=== PATIENT | female | born 1980 | race Caucasian/White ===

== ENCOUNTER 2024-12-02 18:01 | Emergency (ER) | payer SELFPAY ==
[2024-12-02 18:34] VITALS: BP 126/90; PULSE 102; RESP 20; TEMP 36.6; O2SAT 97; BMI 24.1
--- OUTSIDE RECORDS SUMMARY | 2024-12-02 20:11 | XMS_ITS | Encounter Summary ---
Author Organization [place] Address [address] [place] [address] Care Team Providers Care Radiotelegraph Operator Servicer Name Role Phone Pauline Augustine APRN PYROMETER OPERATOR Primary Care Provider + Pauline Augustine APRN PYROMETER OPERATOR Unavailable +[phone] Kendrick Landry MD Unavailable +[phone] Kendrick Landry MD Unavailable +[phone] Nydia Murphy CHW Unavailable +[phone] Encounter Details Date Type Department Care Team (Late st Contact Info) Description 01/31/2022 [facility] [place] Adv[place] [address] [address] Sarahy Nieves Social History Tobacco Use Types Packs/Day Years Used Date Smoking Tobacco: Never Smokeless Tobacco: Never Alcohol Use Standard Drinks/Week Comments No 0 (1 standard drink = 0.6 oz pur e alcohol) PHQ-2 Answer Date Recorded PHQ-2 Score 2 09/30/2021 Comments No Sex and Gender Information Value Date Recorded Sex Assigned at Not on file Legal Sex Female 4:25 AM BELL NECK HAMMERER Gender Identity Not on file Sexual Orientation Straight 09/24/2021 4: 08 PM BELL NECK HAMMERER 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 Not on file Not on file Not on file Not on file documented as of this encounter Plan of Treatment Not on file documented as of this encounter Visit Diagnoses Not on filedocumented in this encounter Additional Health Concerns Infection Onset Date Last Indicated Resolved Time Rule Out COVID-19 06/19/2023 06/19/2023 06/19/2023 10:19 PM CDT Rule Out COVID-19 09/29/2023 09/29/2023 09/29/2023 3:47 PM BELL NECK HAMMERER Assessment Noted Time PHQ-9 Depression Total Score: 7 09/30/19 22 2:53 PM BELL NECK HAMMERER documented as of this encounter Care Teams Radiotelegraph Operator Servicer Relationship Specialty Start Date End Date Pauline Augustine APRN PYROMETER OPERATOR [address] [place] [address] PCP - General Nurse Practitioner - Family 01/25/19 Pauline Augustine APRN PYROMETER OPERATOR [address] [facility] [place] [address] Assigned PCP 07/14/21 Kendrick Landry MD [address] [place] [address] [id number] Critical Care 06/27/22 Kendrick Landry MD [address] [place] [address] [id number] Critical Care 06/27/22 Nydia Murphy, [facility] Community Health Worker Primary Care - CC 10/04/2410/06/24 documented as of this encounter
--- OUTSIDE RECORDS SUMMARY | 2024-12-02 20:11 | XMS_ITS | Encounter Summary ---
Author Organization [place] Address [address] [place] [address] Care Team Providers Care Studio Technician Name Role Phone Nik Dumont MD Primary Care Provider + [phone] Rajani Rodriguez VIDEO OPERATOR SALT WASHER HARVESTING STATION Unavailable Mamadou Jiang PA-C Unavailable + Shawn-Rajani Quintanilla APRN SALT WASHER HARVESTING STATION Unavailable Mamadou Jiang PA-C Unavailable + Pauline Augustine VIDEO OPERATOR SALT WASHER HARVESTING STATION Unavailable + Pauline Augustine VIDEO OPERATOR SALT WASHER HARVESTING STATION Primary Care Provider + Mamadou Jiang PA-C Unavailable +00 Pauline Augustine VIDEO OPERATOR SALT WASHER HARVESTING STATION Unavailable +00 Pauline Augustine VIDEO OPERATOR SALT WASHER HARVESTING STATION Unavailable + Kendrick Landry MD Unavailable +[phone] Kendrick Landry MD Unavailable +[phone] Nydia Murphy [facility] Unavailable +[phone] Encounter Details Date Type Department Care Team (Late st Contact Info) Description 03/12/2009 [facility] [place] [facility] [address] [address] Nik Dumont MD [address] [address] Social History Tobacco Use Types Packs/Day Years Used Date Smoking Tobacco: Never Alcohol Use Standard Drinks/Week Comments No 0 (1 standard drink = 0.6 oz pur e alcohol) Comments No Sex and Gender Information Value Date Recorded Sex Assigned at Not on file Legal Sex Female 4:25 AM GEOLOGICAL DRAFTER Gender Identity Not on file Sexual Orientation Straight 09/24/2021 4: 08 PM GEOLOGICAL DRAFTER documented as of this encounter Plan of Treatment Not on file documented as of this encounter Visit Diagnoses Not on filedocumented in this encounter Additional Health Concerns Infection Onset Date Last Indicated Resolved Time Rule Out COVID-06/19/2023 06/19/2023 06/19/2023 10:19 PM CDT Rule Out COVID-09/29/2023 09/29/2023 09/29/2023 3:47 PM GEOLOGICAL DRAFTER documented as of this encounter Care Teams Studio Technician Relationship Specialty Start Date End Date Nik Dumont MD [address] [address] PCP - General 07/18/02 01/24/19 Rajani Rodriguez APRN SALT WASHER HARVESTING STATION [address] [place] [address] ROB[place] CARVER [address] PCP - Assigned PCP 04/25/18 10/30/18 Mamadou Jiang PA-C [address] [place] [address] PCP - Assigned PCP 10/31/18 11/30/18 Pauline Augustine APRN SALT WASHER HARVESTING STATION [address] [place] [address] PCP - General Nurse Practitioner - Family 01/25/19 Rajani Rodriguez APRN SALT WASHER HARVESTING STATION [address] [place] [address] ROB[place] CARVER [address] Assigned PCP 04/25/18 10/30/18 Mamadou Jiang PA-C [address] [place] [address] Assigned PCP 10/31/18 01/22/19 Pauline Augustine APRN SALT WASHER HARVESTING STATION [address] [place], [place] 0194168 Assigned PCP 01/23/19 03/24/20 Mamadou Jiang PA-C [address] [place] [address] Assigned PCP 03/25/20 08/25/20 Pauline Augustine APRN SALT WASHER HARVESTING STATION [address] [address] [place], [place] [id number] Assigned PCP 08/26/20 07/13/21 Pauline Augustine APRN SALT WASHER HARVESTING STATION [address] [place], [place] 3578668 Assigned PCP 07/14/21 Kendrick Landry MD 9 [place] [address] Critical Care 06/27/22 Kendrick Landry MD [address] [place] [address] Critical Care 06/27/22 Nydia Murphy, W Community Health Worker Primary Care - CC 10/04/2410/06/24 documented as of this encounter
--- OUTSIDE RECORDS SUMMARY | 2024-12-02 20:11 | XMS_ITS | Encounter Summary ---
Author Organization [place] Address [address] [place] [address] Care Team Providers Care Pipeline Dispatch Operator Name Role Phone Nik Dumont MD Primary Care Provider + [phone] Rajani Rodriguez APRN THINNER SPRAYER Unavailable Mamadou Jiang-C Unavailable +[phone] Rajani Rodriguez APRN THINNER SPRAYER Unavailable Mamadou Jiang-C Unavailable +[phone] Pauline Augustine MASON LINER THINNER SPRAYER Unavailable + Pauline Augustine MASON LINER THINNER SPRAYER Primary Care Provider + Mamadou Jiang-C Unavailable + Pauline Augustine APRN THINNER SPRAYER Unavailable +00 Pauline Augustine APRN THINNER SPRAYER Unavailable + Kendrick Landry MD Unavailable +[phone] Kendrick Landry MD Unavailable +[phone] Nydia Murphy [facility] Unavailable +[phone] Encounter Details Date Type Department Care Team (Late st Contact Info) Description 09/07/2012 [facility] [place] [address] [address] Conner Choudhary Social History Tobacco Use Types Packs/Day Years Used Date Smoking Tobacco: Never Smokeless Tobacco: Never Alcohol Use Standard Drinks/Week Comments No 0 (1 standard drink = 0.6 oz pur e alcohol) Comments Yes Sex and Gender Information Value Date Recorded Sex Assigned at Not on file Legal Sex Female 4:25 AM SUPERVISOR CAR AND YARD Gender Identity Not on file Sexual Orientation Straight 09/24/2021 4: 08 PM SUPERVISOR CAR AND YARD Occupation Industry Job Start Date Job End [...] Out COVID-19 09/29/2023 09/29/2023 09/29/2023 3:47 PM SUPERVISOR CAR AND YARD documented as of this encounter Care Teams Pipeline Dispatch Operator Relationship Specialty Start Date End Date Nik Dumont MD [address] [address] PCP - General 07/18/02 01/24/19 Rajani Rodriguez APRN THINNER SPRAYER [address] [place] [address] ROB[place] CARVER [address] PCP - Assigned PCP 04/25/18 10/30/18 Mamadou Jiang PA-C [address] [place] [address] PCP - Assigned PCP 10/31/18 11/30/18 Pauline Augustine APRN THINNER SPRAYER [address] [place] [address] PCP - General Nurse Practitioner - Family 01/25/19 Rajani Rodriguez APRN THINNER SPRAYER [address] [place] [address] ROB[place] CARVER [address] Assigned PCP 04/25/18 10/30/18 Mamadou Jiang PA-C [address] [place] [address] Assigned PCP 10/31/18 01/22/19 Pauline Augustine APRN THINNER SPRAYER [address] [place] [address] Assigned PCP 01/23/19 03/24/20 Mamadou Jiang PA-C [address] [place] [address] Assigned PCP 03/25/20 08/25/20 Pauline Augustine APRN THINNER SPRAYER [address] [place] [address] Assigned PCP 08/26/20 07/13/21 Pauline Augustine APRN THINNER SPRAYER [address] [place] [address] Assigned PCP 07/14/21 Kendrick Landry MD 9 [place] [address] Critical Care 06/27/22 Kendrick Landry MD 9 [place] [address] Critical Care 06/27/22 Nydia Murphy, [facility] Community Health Worker Primary Care - CC 10/04/2410/06/24 documented as of this encounter
--- OUTSIDE RECORDS SUMMARY | 2024-12-02 20:11 | XMS_ITS | Encounter Summary ---
Author Organization [place] Address [address] [place] [address] Care Team Providers Care Manager Flight Operations Name Role Phone Nik Dumont MD Primary Care Provider + [phone] Rajani Rodriguez APRN MARKETING COMMUNICATIONS MANAGER Unavailable Mamadou Jiang-C Unavailable +[phone] Rajani Rodriguez APRN MARKETING COMMUNICATIONS MANAGER Unavailable Mamadou Jiang-C Unavailable +[phone] Pauline Augustine KICKBOXING INSTRUCTOR MARKETING COMMUNICATIONS MANAGER Unavailable + Pauline Augustine KICKBOXING INSTRUCTOR MARKETING COMMUNICATIONS MANAGER Primary Care Provider + Mamadou Jiang PA-C Unavailable + Pauline Augustine APRN MARKETING COMMUNICATIONS MANAGER Unavailable +00 Pauline Augustine APRN MARKETING COMMUNICATIONS MANAGER Unavailable + Kendrick Landry MD Unavailable +[phone] Kendrick Landry MD Unavailable +[phone] Nydia Murphy [facility] Unavailable +[phone] Encounter Details Date Type Department Care Team (Late st Contact Info) Description 07/[facility] [place] [facility] Advice [address] [address] Conner Choudhary Social History Tobacco Use Types Packs/Day Years Used Date Smoking Tobacco: Never Alcohol Use Standard Drinks/Week Comments No 0 (1 standard drink = 0.6 oz pur e alcohol) Comments Yes Sex and Gender Information Value Date Recorded Sex Assigned at Not on file Legal Sex Female 4:25 AM AWNING ASSEMBLER Gender Identity Not on file Sexual Orientation Straight 09/24/2021 4: 08 PM AWNING ASSEMBLER Occupation Industry Job Start Date Job End Date Not on file Not on file Not on file Not on file documented as of this encounter Plan of Treatment Not on file documented as of this encounter Visit Diagnoses Not on filedocumented in this encounter Additional Health Concerns Infection Onset Date Last Indicated Resolved Time Rule Out COVID-19 06/19/2023 06/19/2023 06/19/2023 10:19 PM CDT Rule Out COVID-19 09/29/2023 09/29/2023 09/29/2023 3:47 PM AWNING ASSEMBLER documented as of this encounter Care Teams Manager Flight Operations Relationship Specialty Start Date End Date Nik Dumont MD [address] [address] PCP - General 07/18/02 01/24/19 Rajani Rodriguez APRN MARKETING COMMUNICATIONS MANAGER [address] [place] [address] ROB[place] CARVER [address] PCP - Assigned PCP 04/25/18 10/30/18 Mamadou Jiang [place] [address] [place] [address] PCP - Assigned PCP 10/31/18 11/30/18 Pauline Augustine APRN MARKETING COMMUNICATIONS MANAGER [address] [place] [address] PCP - General Nurse Practitioner - Family 01/25/19 Rajani Rodriguez APRN MARKETING COMMUNICATIONS MANAGER [address] [place] [address] [place] [address] Assigned PCP 04/25/18 10/30/18 Mamadou Jiang PA-C [address] [place] [address] Assigned PCP 10/31/18 01/22/19 Pauline Augustine APRN MARKETING COMMUNICATIONS MANAGER [address] [place] [address] Assigned PCP 01/23/19 03/24/20 Mamadou Jiang PA-C [address] [place] [address] Assigned PCP 03/25/20 08/25/20 Pauline Augustine APRN MARKETING COMMUNICATIONS MANAGER [address] [place] [address] Assigned PCP 08/26/20 07/13/21 Pauline Augustine APRN MARKETING COMMUNICATIONS MANAGER [address] [place] [address] Assigned PCP 07/14/21 Kendrick Landry MD 9[address] [place] [address] Critical Care 06/27/22 Kendrick Landry MD [address] [place] [address] Critical Care 06/27/22 Nydia Murphy, [facility] Community Health Worker Primary Care - CC 10/04/2410/06/24 documented as of this encounter
--- OUTSIDE RECORDS SUMMARY | 2024-12-02 20:11 | XMS_ITS | Encounter Summary ---
Author Organization [place] Address [address] [place] [address] Care Team Providers Care Bad Work Gatherer Name Role Phone Nik Dumont MD Primary Care Provider + [phone] Rajani Rodriguez APRN MAINTENANCE MACHINE REPAIRER Unavailable Mamadou Jiang-C Unavailable +[phone] Shawn-Rajani Quintanilla APRN MAINTENANCE MACHINE REPAIRER Unavailable Mamadou Jiang PA-C Unavailable +[phone] Pauline Augustine APPLICATIONS SALES CONSULTANT MAINTENANCE MACHINE REPAIRER Unavailable +[phone] Pauline Augustine APPLICATIONS SALES CONSULTANT MAINTENANCE MACHINE REPAIRER Primary Care Provider + Mamadou Jiang PA-C Unavailable +[phone] Pauline Augustine APRN MAINTENANCE MACHINE REPAIRER Unavailable +00 Pauline Augustine APRN MAINTENANCE MACHINE REPAIRER Unavailable +[phone] Kendrick Landry MD Unavailable +[phone] Kendrick Landry MD Unavailable +[phone] Nydia Murphy [facility] Unavailable +[phone] Encounter Details Date Type Department Care Team (Late st Contact Info) Description 12/11/2010 [facility] [place] Advice [address] [address] Case Ibarra MD RETIRED Social History Tobacco Use Types Packs/Day Years Used Date Smoking Tobacco: Never Alcohol Use Standard Drinks/Week Comments No 0 (1 standard drink = 0.6 oz pur e alcohol) Comments Yes Sex and Gender Information Value Date Recorded Sex Assigned at Not on file Legal Sex Female 4:25 AM ENDOSCOPY TECHNICAN Gender Identity Not on file Sexual Orientation Straight 09/24/2021 4: 08 PM ENDOSCOPY TECHNICAN Occupation Industry Job Start Date Job End [...] Out COVID-19 09/29/2023 09/29/2023 09/29/2023 3:47 PM ENDOSCOPY TECHNICAN documented as of this encounter Care Teams Bad Work Gatherer Relationship Specialty Start Date End Date Nik Dumont MD [address] [address] PCP - General 07/18/02 01/24/19 Rajani Rodriguez APRN MAINTENANCE MACHINE REPAIRER [address] [place] [address] ROB[place] CARVER [address] PCP - Assigned PCP 04/25/18 10/30/18 Mamadou Jiang PA-C [address] [place] [id number] PCP - Assigned PCP 10/31/18 11/30/18 Pauline Augustine APRN MAINTENANCE MACHINE REPAIRER [address] [place] [id number] PCP - General Nurse Practitioner - Family 01/25/19 Rajani Rodriguez APRN MAINTENANCE MACHINE REPAIRER [address] [place] [address] [place] CARVER [address] Assigned PCP 04/25/18 10/30/18 Mamadou Jiang PA-C [address] [place] [address] Assigned PCP 10/31/18 01/22/19 Pauline Augustine APRN MAINTENANCE MACHINE REPAIRER [address] [place] [address] Assigned PCP 01/23/19 03/24/20 Mamadou Jiang PA-C [address] [place] [address] Assigned PCP 03/25/20 08/25/20 Pauline Augustine APRN MAINTENANCE MACHINE REPAIRER [address] [place] [address] Assigned PCP 08/26/20 07/13/21 Pauline Augustine APRN MAINTENANCE MACHINE REPAIRER [address] [place] [address] Assigned PCP 07/14/21 Kendrick Landry MD 9 [place], [place] 973985 Critical Care 06/27/22 Kendrick Landry MD [address] [place] [address] Critical Care 06/27/22 Nydia Murphy, W Community Health Worker Primary Care - CC 10/04/2410/06/24 documented as of this encounter
--- OUTSIDE RECORDS SUMMARY | 2024-12-02 20:11 | XMS_ITS | Encounter Summary ---
Author Organization [place] Address [address] [place] [address] Care Team Providers Care Tongue And Quarter Stitcher Name Role Phone Nik Dumont MD Primary Care Provider + [phone] ShawnRajani Rocha CABINET MOUNTER SHOP AND ALTERATION TAILOR Unavailable Mamadou Jiang-C Unavailable + Shawn-Rajani Quintanilla APRN SHOP AND ALTERATION TAILOR Unavailable Mamadou Jiang PA-C Unavailable + Pauline Augustine CABINET MOUNTER SHOP AND ALTERATION TAILOR Unavailable + Pauline Augustine CABINET MOUNTER SHOP AND ALTERATION TAILOR Primary Care Provider + Mamadou Jiang PA-C Unavailable + Pauline Augustine APRN SHOP AND ALTERATION TAILOR Unavailable +00 Pauline Augustine APRN SHOP AND ALTERATION TAILOR Unavailable + Kendrick Landry MD Unavailable +[phone] Kendrick Landry MD Unavailable +[phone] Nydia uMrphy [facility] Unavailable +[phone] Reason for Visit * Reason Onset Date Comments Refill Request 03/29/2013 Encounter Details Date Type Department Care Team (Late st Contact Info) Description 03/29/2013 [facility] Women's [address] [place] [address] Case Ibarra MD RETIRED Refill Request Social History Tobacco Use Types Packs/Day Years Used Date Smoking Tobacco: Never Smokeless Tobacco: Never Alcohol Use Standard Drinks/Week Comments No 0 (1 standard drink = 0.6 oz pur e alcohol) Comments Unknown Sex and Gender Information Value Date Recorded Sex Assigned at Not on file Legal Sex Female 4:25 AM AMMONIUM NITRATE NEUTRALIZER Gender Identity Not on file Sexual Orientation Straight 09/24/2021 4: 08 PM AMMONIUM NITRATE NEUTRALIZER 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 I just want to make sure I have them after the baby. Thank you Esperanza documented in this encounter Plan of Treatment Not on file documented as of this encounter Visit Diagnoses Diagnosis depression Mental disorders of mother, complicating , childbirth, or the puerperium, unspecified as to episode of care documented in this encounter Additional Health Concerns Infection Onset Date Last Indicated Resolved Time Rule Out COVID-19 06/19/2023 06/19/2023 06/19/2023 10:19 PM CDT Rule Out COVID-19 09/29/2023 09/29/2023 09/29/2023 3:47 PM AMMONIUM NITRATE NEUTRALIZER documented as of this encounter Care Teams Tongue And Quarter Stitcher Relationship Specialty Start Date End Date Nik Dumont MD [address] [place] [address] PCP - General 07/18/02 01/24/19 Rajani Rodriguez APRN SHOP AND ALTERATION TAILOR [address] [place] [address] DR HAWLEY, ROBERT [address] PCP - Assigned PCP 04/25/18 10/30/18 Mamadou Jiang PA-C [address] [place] [address] PCP - Assigned PCP 10/31/18 11/30/18 Pauline Augustine, CABINET MOUNTER SHOP AND ALTERATION TAILOR [address] [place] [address] PCP - General Nurse Practitioner - Family 01/25/19 Rajani Rodriguez APRN SHOP AND ALTERATION TAILOR [address] [place] [address] ROB[place] CARVER [address] Assigned PCP 04/25/18 10/30/18 Mamadou Jiang PA-C [address] [place] [address] Assigned PCP 10/31/18 01/22/19 Pauline Augustine APRN SHOP AND ALTERATION TAILOR [address] [place] [address] Assigned PCP 01/23/19 03/24/20 Mamadou Jiang PA-C [address] [place] [address] Assigned PCP 03/25/20 08/25/20 Pauline Augustine APRN SHOP AND ALTERATION TAILOR [address] [place] [address] Assigned PCP 08/26/20 07/13/21 Pauline Augustine APRN SHOP AND ALTERATION TAILOR [address] [place] [address] Assigned PCP 07/14/21 Kendrick Landry MD 9 [place], [place] 934[address] Critical Care 06/27/22 Kendrick Landry MD [address] [place], [place] 261885 Critical Care 06/27/22 Nydia Murphy, [facility] Community Health Worker Primary Care - CC 10/04/2410/06/24 documented as of this encounter
--- OUTSIDE RECORDS SUMMARY | 2024-12-02 20:11 | XMS_ITS | Encounter Summary ---
Author Organization [place] Address [address] [place] [address] Care Team Providers Care Web Site Designer Name Role Phone Nik Dumont MD Primary Care Provider + [phone] ShawnRajani Rocha MARKETING SYSTEMS ANALYST MANUFACTURING PRODUCTION TECHNICIAN Unavailable Mamadou Jiang-C Unavailable + Shawn-Rajani Quintanilla APRN MANUFACTURING PRODUCTION TECHNICIAN Unavailable Mamadou Jiang PA-C Unavailable + Pauline Augustine MARKETING SYSTEMS ANALYST MANUFACTURING PRODUCTION TECHNICIAN Unavailable + Pauline Augustine MARKETING SYSTEMS ANALYST MANUFACTURING PRODUCTION TECHNICIAN Primary Care Provider + Mamadou Jiang PA-C Unavailable +00 Pauline Augustine MARKETING SYSTEMS ANALYST MANUFACTURING PRODUCTION TECHNICIAN Unavailable +00 Pauline Augustine MARKETING SYSTEMS ANALYST MANUFACTURING PRODUCTION TECHNICIAN Unavailable +00 Kendrick Landry MD Unavailable +[phone] Kendrick Landry MD Unavailable +[phone] Nydia Murphy [facility] Unavailable +[phone] Reason for Visit * Reason Onset Date Comments Refill Request 2012 araceli Encounter Details Date Type Department Care Team (Late st Contact Info) Description 2012 [facility] Women's [address] [place] [id number] Sunday Justin MD NO INFO AVAILABLE 09/18/2022 Refill Request (zofran) Social History Tobacco Use Types Packs/Day Years Used Date Smoking Tobacco: Never Smokeless Tobacco: Never Alcohol Use Standard Drinks/Week Comments No 0 (1 standard drink = 0.6 oz pur e alcohol) Comments Yes Sex and Gender Information Value Date Recorded Sex Assigned at Not on file Legal Sex Female 4:25 AM AMBULANCE DISPATCHER Gender Identity Not on file Sexual Orientation Straight 09/24/2021 4: 08 PM AMBULANCE DISPATCHER 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 LANCE DISPATCHER documented in this encounter Plan of Treatment Not on file documented as of this encounter Visit Diagnoses Diagnosis Nausea/vomiting in - Primary Unspecified vomiting of , unspecified as to episode of care documented in this encounter Additional Health Concerns Infection Onset Date Last Indicated Resolved Time Rule Out COVID-19 06/19/2023 06/19/2023 06/19/2023 10:19 PM CDT Rule Out COVID-19 09/29/2023 09/29/2023 09/29/2023 3:47 PM AMBULANCE DISPATCHER documented as of this encounter Care Teams Web Site Designer Relationship Specialty Start Date End Date Nik Dumont MD [address] [address] PCP - General 07/18/02 01/24/19 Rajani Rodriguez APRN MANUFACTURING PRODUCTION TECHNICIAN [address] [facility] [place] [address] PCP - Assigned PCP 04/25/18 10/30/18 Mamadou Jiang PA-C [address] [place] [address] PCP - Assigned PCP 10/31/18 11/30/18 Pauline Augustine APRN MANUFACTURING PRODUCTION TECHNICIAN [address] [place] [address] PCP - General Nurse Practitioner - Family 01/25/19 ShawnRajani Rocha APRN MANUFACTURING PRODUCTION TECHNICIAN [address] [place] [address] Assigned PCP 04/25/18 10/30/18 Mamadou Jiang PA-C [address] [place] [address] Assigned PCP 10/31/18 01/22/19 Pauline Augustine APRN MANUFACTURING PRODUCTION TECHNICIAN [address] [place] [address] Assigned PCP 01/23/19 03/24/20 Mamadou Jiang PA-C [address] [place] [address] Assigned PCP 03/25/20 08/25/20 Pauline Augustine APRN MANUFACTURING PRODUCTION TECHNICIAN [address] [place] [address] Assigned PCP 08/26/20 07/13/21 Pauline Augustine APRN MANUFACTURING PRODUCTION TECHNICIAN [address] [place] [address] Assigned PCP 07/14/21 Kendrick Landry MD [address] [place], [place] [address] Critical Care 06/27/22 Kendrick Landry MD [address] [place], [place] [address] Critical Care 06/27/22 Nydia Murphy, [facility] Community Health Worker Primary Care - CC 10/04/2410/06/24 documented as of this encounter
--- OUTSIDE RECORDS SUMMARY | 2024-12-02 20:11 | XMS_ITS | Encounter Summary ---
Author Organization [place] Address [address] [place] [address] Care Team Providers Care Yard Pilot Name Role Phone Nik Dumont MD Primary Care Provider + [phone] Rajani Rodriguez APRN MECHANICAL PROJECT MANAGER Unavailable Mamadou Jiang-C Unavailable +[phone] Rajani Rodriguez APRN MECHANICAL PROJECT MANAGER Unavailable Mamadou Jiang-C Unavailable +[phone] Pauline Augustine COUNTER DISH CARRIER MECHANICAL PROJECT MANAGER Unavailable + Pauline Augustine COUNTER DISH CARRIER MECHANICAL PROJECT MANAGER Primary Care Provider + Mamadou Jiang PA-C Unavailable + Pauline Augustine APRN MECHANICAL PROJECT MANAGER Unavailable +00 Pauline Augustine APRN MECHANICAL PROJECT MANAGER Unavailable + Kendrick Landry MD Unavailable +[phone] Kendrick Landry MD Unavailable +[phone] Nydia Murphy [facility] Unavailable +[phone] Encounter Details Date Type Department Care Team (Late st Contact Info) Description 12/18/2010 [facility] Medical Advice [address] [address] Conner Choudhary Social History Tobacco Use Types Packs/Day Years Used Date Smoking Tobacco: Never Alcohol Use Standard Drinks/Week Comments No 0 (1 standard drink = 0.6 oz pur e alcohol) Comments Yes Sex and Gender Information Value Date Recorded Sex Assigned at Not on file Legal Sex Female 4:25 AM INSIDE SALES TERRITORY MANAGER Gender Identity Not on file Sexual Orientation Straight 09/24/2021 4: 08 PM INSIDE SALES TERRITORY MANAGER Occupation Industry Job Start Date Job End [...] Out COVID-19 09/29/2023 09/29/2023 09/29/2023 3:47 PM INSIDE SALES TERRITORY MANAGER documented as of this encounter Care Teams Yard Pilot Relationship Specialty Start Date End Date Nik Dumont MD [address] [address] PCP - General 07/18/02 01/24/19 Rajani Rodriguez APRN MECHANICAL PROJECT MANAGER [address] [place] [address] [place] [address] PCP - Assigned PCP 04/25/18 10/30/18 Mamadou Jiang PA-C [address] [place] [address] PCP - Assigned PCP 10/31/18 11/30/18 Pauline Augustine APRN MECHANICAL PROJECT MANAGER [address] [place] [address] PCP - General Nurse Practitioner - Family 01/25/19 Rajani Rodriguez APRN MECHANICAL PROJECT MANAGER [address] [place] [address] [place] [address] Assigned PCP 04/25/18 10/30/18 Mamadou Jiang PA-C [address] [place] [address] Assigned PCP 10/31/18 01/22/19 Pauline Augustine APRN MECHANICAL PROJECT MANAGER [address] [place] [address] Assigned PCP 01/23/19 03/24/20 Mamadou Jiang PA-C [address] [place] [address] Assigned PCP 03/25/20 08/25/20 Pauline Augustine APRN MECHANICAL PROJECT MANAGER [address] [place] [address] Assigned PCP 08/26/20 07/13/21 Pauline Augustine APRN MECHANICAL PROJECT MANAGER [address] [place] [address] Assigned PCP 07/14/21 Kendrick Landry MD [address] [place] [address] Critical Care 06/27/22 Kendrick Landry MD [address] [place] [address] Critical Care 06/27/22 Nydia Murphy, [facility] Community Health Worker Primary Care - CC 10/04/2410/06/24 documented as of this encounter
--- OUTSIDE RECORDS SUMMARY | 2024-12-02 20:11 | XMS_ITS | Clinical Summary ---
Author Organization [facility] Address [address] [place] [address] Care Team Providers Care Steam Presser Name Role Phone Nik Dumont MD Primary Care Provider [phone] Allergies Active Allergy Reactions Criticality Noted Date Comments Amoxicillin-Pot Clavulanate Hives 06/21/20 13 Codeine Anxiety 06/21/2013 Iodinated Contrast Media Throat Swelling/Closing 06/21/2013 Iodine Throat Swelling/Closing 06/21/2013 Medications drospirenone-ethi nyl estradiol (DANIELLE 28) 3-0.03 mg tabletIndications : contraception Take 1 tablet by mouth once daily. Indications: CONTRACEPTION Active LORazepam (ATIVAN) 0.5 mg TabIndications:an xiety Take 0.5 mg by mouth every 6 hours if needed. Indications: ANXIETY Active escitalopram (LEXAPRO) 20 mg tabletIndications :generalized anxiety disorder,major depressive disorder Take 20 mg by mouth once daily. Indications: GENERALIZED ANXIETY DISORDER, MAJOR DEPRESSIVE DISORDER Active acetaminophen (TYLENOL) 650 mg tablet Take 1 tablet by mouth every 4 hours if needed for Pain (For mild pain.). Max acetaminophen dose: 4000mg in 24 hrs. 0 06/27/20 13 Active ibuprofen (ADVIL; MOTRIN) 600 mg tablet Take 1 tablet by mouth every 6 hours if needed for Pain or Headache. Maximum of 3200 mg in 24 hours. 30 tablet 06/27/20 13 Active Active Problems Problem Noted Date Diagnosed Date Depression 06/22/2013 SIRS due to infection 06/21/2013 Fever 06/21/2013 Nausea & vomiting 06/21/2013 Generalized muscle ache 06/21/2013 Dehydration 06/21/2013 Meningitis 06/21/2013 Headache(784.0) 06/21/2013 Family History Medical History Relation Name Comments Diabetes Maternal Aunt Hypertension Maternal Aunt Heart Disease Maternal Grandfather Hypertension Maternal Grandfather Heart Disease Maternal Grandmother Hypertension Maternal Grandmother Diabetes Maternal Uncle Hypertension Maternal Uncle Relation Name Status Comments Maternal Aunt Maternal Grandfather Maternal Grandmother Maternal Uncle Social History Tobacco Use Types Packs/Day Years Used Date Smoking Tobacco: Never Alcohol Use Standard Drinks/Week Comments No 0 (1 standard drink = 0.6 oz pur e alcohol) Comments No Sex and Gender Information Value Date Recorded Sex Assigned at Not on file Legal Sex Female 1:57 PM CDT Gender Identity Not on file Sexual Orientation Not on file Obstetrics History Last Filed Vital Signs Vital Sign Reading Time Taken Comments Blood Pressure 129/83 06/27/2013 8:00 AM CDT Pulse 52 06/27/2013 8:00 AM CDT Temperature 36.4 C (97.5 F) 06/27/2013 8:00 AM CDT Respiratory Rate 16 06/27/2013 8:00 AM CDT Oxygen Saturation 100% 06/27/2013 8:00 AM CDT Inhaled Oxygen Concentration - - Weight 61.5 kg (135 lb 8 oz) 06/24/2013 3:00 PM CDT Height 160 cm (5' 3) 06/21/2013 11:57 AM CDT Body Mass Index 24 06/21/2013 11:57 AM CDT Plan of Treatment Health Maintenance Due Date Last Done Comments Tdap 1992 Depression screening for age 12+ 1993 HIV for age 15-65 1996 BMI (ht and wt on same day) for age 18+ 1999 Hepatitis C screening for ag e 18-79 1999 Tetanus booster 2001 Pap test for age 21-65 2002 COVID-19 vaccine series (2023- season) 2024 Influenza for age 9-49 05/29/2024 Pneumococcal series for age 6-49 Aged Out No longer eligible based on patient's age to complete this topic Insurance MEDICA CHOICE Advance Directives * Full Code (Latest Code Status on File) Date Activated Date Inactivated Comments 06/21/2013 7:43 PM 06/27/2013 2:29 PM Care Teams Steam Presser Relationship Specialty Start Date End Date Nik Dumont MD PCP - General 06/21/13
--- OUTSIDE RECORDS SUMMARY | 2024-12-02 20:11 | XMS_ITS | Encounter Summary ---
Author Organization [employer] Address [address] [place] [address] Care Team Providers Care Linen Tech Name Role Phone Nik Dumont MD Primary Care Provider + [phone] Rajani Rodriguez APRN DAIRY SUPPLIES SALES REPRESENTATIVE Unavailable Mamadou Jiang-C Unavailable + Rajani Rodriguez APRN DAIRY SUPPLIES SALES REPRESENTATIVE Unavailable Mamadou Jiang PA-C Unavailable + Pauline Augustine TEACHER OF THE HANDICAPPED DAIRY SUPPLIES SALES REPRESENTATIVE Unavailable + Pauline Augustine TEACHER OF THE HANDICAPPED DAIRY SUPPLIES SALES REPRESENTATIVE Primary Care Provider + Mamadou Jiang PA-C Unavailable + Pauline Augustine APRN DAIRY SUPPLIES SALES REPRESENTATIVE Unavailable +00 Pauline Augustine APRN DAIRY SUPPLIES SALES REPRESENTATIVE Unavailable +00 Kendrick Landry MD Unavailable +[phone] Kendrick Landry MD Unavailable +[phone] Nydia Murphy [facility] Unavailable +[phone] Reason for Visit * Reason Onset Date Comments Care 12/02/2010 contractions Encounter Details Date Type Department Care Team (Late st Contact Info) Description 12/02/2010 [facility] Medical Advice [facility] Women's [address] [place] [address] Case Ibarra MD RETIRED Care (contractions) Social History Tobacco Use Types Packs/Day Years Used Date Smoking Tobacco: Never Alcohol Use Standard Drinks/Week Comments No 0 (1 standard drink = 0.6 oz pur e alcohol) Comments Yes Sex and Gender Information Value Date Recorded Sex Assigned at Not on file Legal Sex Female 4:25 AM CORE CUTTER Gender Identity Not on file Sexual Orientation Straight 09/24/2021 4: 08 PM CORE CUTTER Occupation Industry Job Start Date Job End Date Not on file Not on file Not on file Not on file documented as of this encounter Miscellaneous Notes * Telephone Encounter - Ashley Frazier - 12/02/2010 2:[address] Ibarra, please review my chart message and advise. [email or web address] Thanks. Ashley Frazier RN CUTTER documented in this encounter Plan of Treatment Not on file documented as of this encounter Visit Diagnoses Not on filedocumented in this encounter Additional Health Concerns Infection Onset Date Last Indicated Resolved Time Rule Out COVID-19 06/19/2023 06/19/2023 06/19/2023 10:19 PM CDT Rule Out COVID-19 09/29/2023 09/29/2023 09/29/2023 3:47 PM CORE CUTTER documented as of this encounter Care Teams Linen Tech Relationship Specialty Start Date End Date Nik Dumont MD [address] [address] PCP - General 07/18/02 01/24/19 Rajani Rodriguez APRN DAIRY SUPPLIES SALES REPRESENTATIVE [address] [facility] [place] [address] PCP - Assigned PCP 04/25/18 10/30/18 Mamadou Jiang PA-C [address] [place] [address] PCP - Assigned PCP 10/31/18 11/30/18 Pauline Augustine APRN DAIRY SUPPLIES SALES REPRESENTATIVE [address] [place] [address] PCP - General Nurse Practitioner - Family 01/25/19 Rajani Rodriguez APRN DAIRY SUPPLIES SALES REPRESENTATIVE [address] [facility] [place] [address] Assigned PCP 04/25/18 10/30/18 Mamadou Jiang PA-C [address] [place] [address] Assigned PCP 10/31/18 01/22/19 Pauline Augustine APRN DAIRY SUPPLIES SALES REPRESENTATIVE [address] [place] [address] Assigned PCP 01/23/19 03/24/20 Mamadou Jiang PA-C [address] [place] [address] Assigned PCP 03/25/20 08/25/20 Pauline Augustine APRN DAIRY SUPPLIES SALES REPRESENTATIVE [address] [place] [address] Assigned PCP 08/26/20 07/13/21 Pauline Augustine APRN DAIRY SUPPLIES SALES REPRESENTATIVE [address] [place] [address] Assigned PCP 07/14/21 Kendrick Landry MD [address] [place] [address] Critical Care 06/27/22 Kendrick Landry MD [facility] [place] [address] Critical Care 06/27/22 Nydia Murphy, W Community Health Worker Primary Care - CC 10/04/2410/06/24 documented as of this encounter
--- OUTSIDE RECORDS SUMMARY | 2024-12-02 20:11 | XMS_ITS | Encounter Summary ---
Author Organization [place] Address [address] [place] [address] Care Team Providers Care Industrial Gas Service Helper Name Role Phone Nik Dumont MD Primary Care Provider + [phone] ShawnRajani Rocha APRN PROGRAM DIRECTOR/TRAFFIC DIRECTOR Unavailable Mamadou Jiang PA-C Unavailable +[phone] Shawn-Rajani Quintanilla APRN PROGRAM DIRECTOR/TRAFFIC DIRECTOR Unavailable Mamadou Jiang PA-C Unavailable +[phone] Pauline Augustine ASSISTANT TODDLER TEACHER PROGRAM DIRECTOR/TRAFFIC DIRECTOR Unavailable + [phone] Pauline Augustine ASSISTANT TODDLER TEACHER PROGRAM DIRECTOR/TRAFFIC DIRECTOR Primary Care Provider + Mamadou Jiang PA-C Unavailable + Pauline Augustine ASSISTANT TODDLER TEACHER PROGRAM DIRECTOR/TRAFFIC DIRECTOR Unavailable +00 Pauline Augustine ASSISTANT TODDLER TEACHER PROGRAM DIRECTOR/TRAFFIC DIRECTOR Unavailable +00 Kendrick Landry MD Unavailable +[phone] Kendrick Landry MD Unavailable +[phone] Nydia Murphy [facility] Unavailable +[phone] Reason for Visit * Reason Onset Date Comments Fatigue 03/01/2009 Encounter Details Date Type Department Care Team (Late st Contact Info) Description 03/01/2009 My[facility] Medical Advice [address] [address] Case Ibarra MD RETIRED Fatigue Social History Tobacco Use Types Packs/Day Years Used Date Smoking Tobacco: Never Alcohol Use Standard Drinks/Week Comments No 0 (1 standard drink = 0.6 oz pur e alcohol) Comments No Sex and Gender Information Value Date Recorded Sex Assigned at Not on file Legal Sex Female 4:25 AM CARRY IN WORKER Gender Identity Not on file Sexual Orientation Straight 09/24/2021 4: 08 PM CARRY IN WORKER documented as of this encounter Plan of Treatment Not on file documented as of this encounter Visit Diagnoses Not on filedocumented in this encounter Additional Health Concerns Infection Onset Date Last Indicated Resolved Time Rule Out COVID-19 06/19/2023 06/19/2023 06/19/2023 10:19 PM CDT Rule Out COVID-19 09/29/2023 09/29/2023 09/29/2023 3:47 PM CARRY IN WORKER documented as of this encounter Care Teams Industrial Gas Service Helper Relationship Specialty Start Date End Date iNk Dumont MD [address] [address] PCP - General 07/18/02 01/24/19 Rajani Rodriguez APRN PROGRAM DIRECTOR/TRAFFIC DIRECTOR [address] [place] [address] [place] [address] PCP - Assigned PCP 04/25/18 10/30/18 Mamadou Jiang PA-C [address] [place] [address] PCP - Assigned PCP 10/31/18 11/30/18 Pauline Augustine APRN PROGRAM DIRECTOR/TRAFFIC DIRECTOR [address] [place] [address] PCP - General Nurse Practitioner - Family 01/25/19 Rajani Rodriguez APRN PROGRAM DIRECTOR/TRAFFIC DIRECTOR [address] [place] [address] [place] [address] Assigned PCP 04/25/18 10/30/18 Mamadou Jiang PA-C [address] [place] [address] Assigned PCP 10/31/18 01/22/19 Pauline Augustine APRN PROGRAM DIRECTOR/TRAFFIC DIRECTOR [address] [place] [address] Assigned PCP 01/23/19 03/24/20 Mamadou Jiang PA-C [address] [place] [address] Assigned PCP 03/25/20 08/25/20 Pauline Augustine APRN PROGRAM DIRECTOR/TRAFFIC DIRECTOR [address] [place] [address] Assigned PCP 08/26/20 07/13/21 Pauline Augustine APRN PROGRAM DIRECTOR/TRAFFIC DIRECTOR [address] [place] [address] Assigned PCP 07/14/21 Kendrick Landry MD [address] [place] [address] Critical Care 06/27/22 Kendrick Landry MD [address] [place] [address] Critical Care 06/27/22 Nydia Murphy, [facility] Community Health Worker Primary Care - CC 10/04/2410/06/24 documented as of this encounter
--- OUTSIDE RECORDS SUMMARY | 2024-12-02 20:11 | XMS_ITS | Encounter Summary ---
Author Organization [place] Address [address] [place] [address] Care Team Providers Care Cryptologic Support Specialist Name Role Phone Nik Dumont MD Primary Care Provider + [phone] ShawnRajani Rocha DIRECTOR CLINICAL RESEARCH PRACTICAL NURSING TEACHER Unavailable Mamadou Jiang PA-C Unavailable +[phone] Shawn-DwightRajani sharif APRN PRACTICAL NURSING TEACHER Unavailable Mamadou Jiang PA-C Unavailable +[phone] Pauline Augustine DIRECTOR CLINICAL RESEARCH PRACTICAL NURSING TEACHER Unavailable + [phone] Pauline Augustine DIRECTOR CLINICAL RESEARCH PRACTICAL NURSING TEACHER Primary Care Provider + Mamadou Jiang PA-C Unavailable + Pauline Augustine DIRECTOR CLINICAL RESEARCH PRACTICAL NURSING TEACHER Unavailable +00 Pauline Augustine DIRECTOR CLINICAL RESEARCH PRACTICAL NURSING TEACHER Unavailable +00 Kendrick Landry MD Unavailable +[phone] Kendrick Landry MD Unavailable +[phone] Nydia Murphy [facility] Unavailable +[phone] Reason for Visit * Reason Onset Date Comments MyChart Communication 09/19/2010 Encounter Details Date Type Department Care Team (Latest Contact Info) Description 09/19/2010 My[facility] Medical Advice [address] [address] Case Ibarra MD RETIRED MyChart Communication Social History Tobacco Use Types Packs/Day Years Used Date Smoking Tobacco: Never Alcohol Use Standard Drinks/Week Comments No 0 (1 standard drink = 0.6 oz pur e alcohol) Comments Yes Sex and Gender Information Value Date Recorded Sex Assigned at Not on file Legal Sex Female 4:25 AM PASSENGER CAR CONDUCTOR Gender Identity Not on file Sexual Orientation Straight 09/24/2021 4: 08 PM PASSENGER CAR CONDUCTOR Occupation Industry Job Start Date Job End Date Not on file Not on file Not on file Not on file documented as of this encounter Miscellaneous Notes * Telephone Encounter - Marita Herrera - 09/20/2010 9:11 AM CST [employer] message ENGER CAR CONDUCTOR documented in this encounter Plan of Treatment Not on file documented as of this encounter Visit Diagnoses Not on filedocumented in this encounter Additional Health Concerns Infection Onset Date Last Indicated Resolved Time Rule Out COVID-19 06/19/2023 06/19/2023 06/19/2023 10:19 PM CDT Rule Out COVID-19 09/29/2023 09/29/2023 09/29/2023 3:47 PM PASSENGER CAR CONDUCTOR documented as of this encounter Care Teams Cryptologic Support Specialist Relationship Specialty Start Date End Date Nik Dumont MD [address] [place] [address] PCP - General 07/18/02 01/24/19 Rajani Rodriguez APRN PRACTICAL NURSING TEACHER [facility] [place] [address] PCP - Assigned PCP 04/25/18 10/30/18 Mamadou Jiang PA-C [address] [place] [id number] PCP - Assigned PCP 10/31/18 11/30/18 Pauline Augustine APRN PRACTICAL NURSING TEACHER [address] [place] [id number] PCP - General Nurse Practitioner - Family 01/25/19 Rajani Rodriguez APRN PRACTICAL NURSING TEACHER [address] [facility] [address] [place], [place] [address] Assigned PCP 04/25/18 10/30/18 Mamadou Jiang PA-C [address] [place] [address] Assigned PCP 10/31/18 01/22/19 Pauline Augustine APRN PRACTICAL NURSING TEACHER [address] [place] [address] Assigned PCP 01/23/19 03/24/20 Mamadou Jiang PA-C [address] [place] [address] Assigned PCP 03/25/20 08/25/20 Pauline Augustine APRN PRACTICAL NURSING TEACHER [address] [place] [address] Assigned PCP 08/26/20 07/13/21 Pauline Augustine APRN PRACTICAL NURSING TEACHER [address] [place] [address] Assigned PCP 07/14/21 Kendrick Landry MD [address] [place], [place] [address] Critical Care 06/27/22 Kendrick Landry MD [address] [place], [place] [address]565 Critical Care 06/27/22 Nydia Murphy, W Community Health Worker Primary Care - CC 10/04/2410/06/24 documented as of this encounter
--- OUTSIDE RECORDS SUMMARY | 2024-12-02 20:11 | XMS_ITS | Encounter Summary ---
Author Organization [facility] Address [address] [place] [address] Care Team Providers Care Corncob Pipe Supervisor Name Role Phone Nik Dumont MD Primary Care Provider + [phone] ShawnRajani Rocha APRN HIGH LIFT DRIVER Unavailable Mamadou Jiang PA-C Unavailable + Shawn-Rajani Quintanilla APRN HIGH LIFT DRIVER Unavailable Mamadou Jiang PA-C Unavailable + Pauline Augustine LOG HAUL CHAIN FEEDER HIGH LIFT DRIVER Unavailable + Pauline Augustine LOG HAUL CHAIN FEEDER HIGH LIFT DRIVER Primary Care Provider + Mamadou Jiang PA-C Unavailable + Pauline Augustine APRN HIGH LIFT DRIVER Unavailable +00 Pauline Augustine APRN HIGH LIFT DRIVER Unavailable +00 Kendrick Landry MD Unavailable +[phone] Kendrick Landry MD Unavailable +[phone] Nydia Murphy [facility] Unavailable +[phone] Encounter Details Date Type Department Care Team (Late st Contact Info) Description 03/28/2013 [facility] [address] [place] [address] Case Ibarra MD RETIRED Social History Tobacco Use Types Packs/Day Years Used Date Smoking Tobacco: Never Smokeless Tobacco: Never Alcohol Use Standard Drinks/Week Comments No 0 (1 standard drink = 0.6 oz pur e alcohol) Comments Unknown Sex and Gender Information Value Date Recorded Sex Assigned at Not on file Legal Sex Female 4:25 AM TEST BORE HELPER Gender Identity Not on file Sexual Orientation Straight 09/24/2021 4: 08 PM TEST BORE HELPER 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 Jennifer Pugh RN documented in this encounter Plan of Treatment Not on file documented as of this encounter Visit Diagnoses Not on filedocumented in this encounter Additional Health Concerns Infection Onset Date Last Indicated Resolved Time Rule Out COVID-19 06/19/2023 06/19/2023 06/19/2023 10:19 PM CDT Rule Out COVID-19 09/29/2023 09/29/2023 09/29/2023 3:47 PM TEST BORE HELPER documented as of this encounter Care Teams Corncob Pipe Supervisor Relationship Specialty Start Date End Date Nik Dumont MD [address] [address] PCP - General 07/18/02 01/24/19 Rajani Rodriguez APRN HIGH LIFT DRIVER [address] [place] [address] ROBERT CARVER [address] PCP - Assigned PCP 04/25/18 10/30/18 Mamadou Jiang PA-C 85877 [place] [id number] PCP - Assigned PCP 10/31/18 11/30/18 Pauline Augustine APRN HIGH LIFT DRIVER [address] [place] [id number] PCP - General Nurse Practitioner - Family 01/25/19 Rajani Rodriguez APRN HIGH LIFT DRIVER [facility] [address] Assigned PCP 04/25/18 10/30/18 Mamadou Jiang PA-C [address] [place] [address] Assigned PCP 10/31/18 01/22/19 Pauline Augustine APRN HIGH LIFT DRIVER [address] [place] [address] Assigned PCP 01/23/19 03/24/20 Mamadou Jiang PA-C [address] [place] [address] Assigned PCP 03/25/20 08/25/20 Pauline Augustine APRN HIGH LIFT DRIVER [address] [place] [address] Assigned PCP 08/26/20 07/13/21 Pauline Augustine APRN HIGH LIFT DRIVER [address] [place] [address] Assigned PCP 07/14/21 Kendrick Landry MD [address] [place] [address] 875105 Critical Care 06/27/22 Kendrick Landry MD [address] [place] [address] 411305 Critical Care 06/27/22 Nydia Murphy, W Community Health Worker Primary Care - CC 10/04/2410/06/24 documented as of this encounter
--- OUTSIDE RECORDS SUMMARY | 2024-12-02 20:11 | XMS_ITS | Encounter Summary ---
Author Organization [facility] Address [address] [place] [address] Care Team Providers Care Doctor Chiropractic Name Role Phone Nik Dumont MD Primary Care Provider + [phone] ShawnRajani Rocha CONTENT MANAGEMENT SPECIALIST KARATE BLACK BELT Unavailable Mamadou Jiang PA-C Unavailable + Shawn-Rajani Quintanilla CONTENT MANAGEMENT SPECIALIST KARATE BLACK BELT Unavailable Mamadou Jiang PA-C Unavailable + Pauline Augustine CONTENT MANAGEMENT SPECIALIST KARATE BLACK BELT Unavailable + Pauline Augustine CONTENT MANAGEMENT SPECIALIST KARATE BLACK BELT Primary Care Provider + Mamadou Jiang PA-C Unavailable +00 Pauline Augustine CONTENT MANAGEMENT SPECIALIST KARATE BLACK BELT Unavailable +00 Pauline Augustine CONTENT MANAGEMENT SPECIALIST KARATE BLACK BELT Unavailable +00 Kendrick Landry MD Unavailable +[phone] Kendrick Landry MD Unavailable +[phone] Nydia Murphy [facility] Unavailable +[phone] Reason for Visit * Reason Onset Date Comments MyChart Communication 01/27/2011 Encounter Details Date Type Department Care Team (Latest Contact Info) Description 01/27/2011 [facility] [address] [place] [address] Case Ibarra MD RETIRED MyChart Communication Social History Tobacco Use Types Packs/Day Years Used Date Smoking Tobacco: Never Alcohol Use Standard Drinks/Week Comments No 0 (1 standard drink = 0.6 oz pur e alcohol) Comments Yes Sex and Gender Information Value Date Recorded Sex Assigned at Not on file Legal Sex Female 4:25 AM MEAL PACKER Gender Identity Not on file Sexual Orientation Straight 09/24/2021 4: 08 PM MEAL PACKER Occupation Industry Job Start Date Job End Date Not on file Not on file Not on file Not on file documented as of this encounter Miscellaneous Notes * Telephone Encounter - Ashley Frazier - 01/27/2011 3:13 PM CDT fyi for [facility]. Ashley Frazier RN documented in this encounter Plan of Treatment Not on file documented as of this encounter Visit Diagnoses Not on filedocumented in this encounter Additional Health Concerns Infection Onset Date Last Indicated Resolved Time Rule Out COVID-19 06/19/2023 06/19/2023 06/19/2023 10:19 PM CDT Rule Out COVID-19 09/29/2023 09/29/2023 09/29/2023 3:47 PM MEAL PACKER documented as of this encounter Care Teams Doctor Chiropractic Relationship Specialty Start Date End Date Nik Dumont MD [address] [address] PCP - General 07/18/02 01/24/19 Rajani Rodriguez APRN KARATE BLACK BELT [address] [place] [address] ROB[place] CARVER [address] PCP - Assigned PCP 04/25/18 10/30/18 Mamadou Jiang PA-C 07294 [place] [address] PCP - Assigned PCP 10/31/18 11/30/18 Pauline Augustine APRN KARATE BLACK BELT [address] [place] [address] PCP - General Nurse Practitioner - Family 01/25/19 Rajani Rodriguez APRN KARATE BLACK BELT [facility] [address] Assigned PCP 04/25/18 10/30/18 Mamadou Jiang PA-C [address] [place] [address] Assigned PCP 10/31/18 01/22/19 Pauline Augustine APRN KARATE BLACK BELT [address] [place] [address] Assigned PCP 01/23/19 03/24/20 Mamadou Jiang PA-C [address] [place] [address] Assigned PCP 03/25/20 08/25/20 Pauline Augustine APRN KARATE BLACK BELT [address] [place] [address] Assigned PCP 08/26/20 07/13/21 Pauline Augustine APRN KARATE BLACK BELT [address] [place] [address] Assigned PCP 07/14/21 Kendrick Landry MD [address] [place] [address] Critical Care 06/27/22 Kendrick Landry MD [address] [place] [address] Critical Care 06/27/22 Nydia Murphy, W Community Health Worker Primary Care - CC 10/04/2410/06/24 documented as of this encounter
--- OUTSIDE RECORDS SUMMARY | 2024-12-02 20:11 | XMS_ITS | Encounter Summary ---
Author Organization [facility] Address [address] [place] [address] Care Team Providers Care Operating Table Assembler Name Role Phone Nik Dumont MD Primary Care Provider + [phone] Rajani Rodriguez APRN TILTING HEAD BAND SAWYER Unavailable Mamadou Jiang-C Unavailable +[phone] Rajani Rodriguez APRN TILTING HEAD BAND SAWYER Unavailable Mamadou Jiang-C Unavailable +[phone] Pauline Augustine RICE FARMER TILTING HEAD BAND SAWYER Unavailable + [phone] Pauline Augustine RICE FARMER TILTING HEAD BAND SAWYER Primary Care Provider + Mamadou Jiang PA-C Unavailable + Pauline Augustine APRN TILTING HEAD BAND SAWYER Unavailable +00 Pauline Augustine APRN TILTING HEAD BAND SAWYER Unavailable + Kendrick Landry MD Unavailable +[phone] Kendrick Landry MD Unavailable +[phone] Nydia Murphy [facility] Unavailable +[phone] Encounter Details Date Type Department Care Team (Late st Contact Info) Description 05/30/2009 [facility] Medical Advice [address] [address] Conner Choudhary Social History Tobacco Use Types Packs/Day Years Used Date Smoking Tobacco: Never Alcohol Use Standard Drinks/Week Comments No 0 (1 standard drink = 0.6 oz pur e alcohol) Comments No Sex and Gender Information Value Date Recorded Sex Assigned at Not on file Legal Sex Female 4:25 AM TIPPLE MECHANIC Gender Identity Not on file Sexual Orientation Straight 09/24/2021 4: 08 PM TIPPLE MECHANIC documented as of this encounter Plan of Treatment Not on file documented as of this encounter Visit Diagnoses Not on filedocumented in this encounter Additional Health Concerns Infection Onset Date Last Indicated Resolved Time Rule Out COVID-19 06/19/2023 06/19/2023 06/19/2023 10:19 PM CDT Rule Out COVID-19 09/29/2023 09/29/2023 09/29/2023 3:47 PM TIPPLE MECHANIC documented as of this encounter Care Teams Operating Table Assembler Relationship Specialty Start Date End Date Nik Dumont MD [address] [address] PCP - General 07/18/02 01/24/19 Rajani Rodriguez APRN TILTING HEAD BAND SAWYER [address] [place] [address] ROB[place] CARVER [address] PCP - Assigned PCP 04/25/18 10/30/18 Mamadou Jiang PA-C 09256 [place] [address] PCP - Assigned PCP 10/31/18 11/30/18 Pauline Augustine APRN TILTING HEAD BAND SAWYER [address] [place] [address] PCP - General Nurse Practitioner - Family 01/25/19 Rajani Rodriguez APRN TILTING HEAD BAND SAWYER [address] [place] [address] ROBERT CARVER [address] Assigned PCP 04/25/18 10/30/18 Mamadou Jiang PA-C 24746 [place] [address] Assigned PCP 10/31/18 01/22/19 Pauline Augustine APRN TILTING HEAD BAND SAWYER [address] [place] [address] Assigned PCP 01/23/19 03/24/20 Mamadou Jiang PA-C [address] [place] [address] Assigned PCP 03/25/20 08/25/20 Pauline Augustine APRN TILTING HEAD BAND SAWYER [address] [place] [address] Assigned PCP 08/26/20 07/13/21 Pauline Augustine APRN TILTING HEAD BAND SAWYER [address] [place] [address] Assigned PCP 07/14/21 Kendrick Landry MD [address] [place] [address] Critical Care 06/27/22 Kendrick Landry MD [address] [place] [address] Critical Care 06/27/22 Nydia Murphy, [facility] Community Health Worker Primary Care - CC 10/04/2410/06/24 documented as of this encounter
--- OUTSIDE RECORDS SUMMARY | 2024-12-02 20:11 | XMS_ITS | Encounter Summary ---
Author Organization [facility] Address [address] [place] [address] Care Team Providers Care Airbrush Artist Technical Name Role Phone Nik Dumont MD Primary Care Provider + [phone] ShawnRajani Rocha APRN BILLBOARD POSTER HELPER Unavailable Mamadou Jiang PA-C Unavailable +[phone] Shawn-Rajani Quintanilla APRN BILLBOARD POSTER HELPER Unavailable Mamadou Jiang PA-C Unavailable +[phone] Pauline Augustine CARCASS WASHER BILLBOARD POSTER HELPER Unavailable + [phone] Pauline Augustine CARCASS WASHER BILLBOARD POSTER HELPER Primary Care Provider + Mamadou Jiang PA-C Unavailable + Pauline Augustine APRN BILLBOARD POSTER HELPER Unavailable +00 Pauline Augustine APRN BILLBOARD POSTER HELPER Unavailable +00 Kendrick Landry MD Unavailable +[phone] Kendrick Landry MD Unavailable +[phone] Nydia Murphy [facility] Unavailable +[phone] Reason for Visit * Reason Onset Date Comments Sinus Problem 09/09/2012 Encounter Details Date Type Department Care Team (Late st Contact Info) Description 09/09/2012 [facility] Medical Advice [address] [address] Case Ibarra MD RETIRED Sinus Problem Social History Tobacco Use Types Packs/Day Years Used Date Smoking Tobacco: Never Smokeless Tobacco: Never Alcohol Use Standard Drinks/Week Comments No 0 (1 standard drink = 0.6 oz pur e alcohol) Comments Yes Sex and Gender Information Value Date Recorded Sex Assigned at Not on file Legal Sex Female 4:25 AM QUALITY ASSURANCE CALIBRATOR Gender Identity Not on file Sexual Orientation Straight 09/24/2021 4: 08 PM QUALITY ASSURANCE CALIBRATOR 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 Recommended urgent care visit. Chaya Martell RN ITY ASSURANCE CALIBRATOR documented in this encounter Plan of Treatment Not on file documented as of this encounter Visit Diagnoses Not on filedocumented in this encounter Additional Health Concerns Infection Onset Date Last Indicated Resolved Time Rule Out COVID-19 06/19/2023 06/19/2023 06/19/2023 10:19 PM CDT Rule Out COVID-19 09/29/2023 09/29/2023 09/29/2023 3:47 PM QUALITY ASSURANCE CALIBRATOR documented as of this encounter Care Teams Airbrush Artist Technical Relationship Specialty Start Date End Date Nik Dumont MD [address] [address] PCP - General 07/18/02 01/24/19 Rajani Rodriguez APRN BILLBOARD POSTER HELPER [address] [place] [address] ROBERT CARVER [address] PCP - Assigned PCP 04/25/18 10/30/18 Mamadou Jiang PA-C 08321 [place] [address] PCP - Assigned PCP 10/31/18 11/30/18 Pauline Augustine APRN BILLBOARD POSTER HELPER [address] [place] [address] PCP - General Nurse Practitioner - Family 01/25/19 Rajani Rodriguez APRN BILLBOARD POSTER HELPER [address] [place] [address] Assigned PCP 04/25/18 10/30/18 Mamadou Jiang PA-C [address] [place] [address] Assigned PCP 10/31/18 01/22/19 Pauline Augustine APRN BILLBOARD POSTER HELPER [address] [place] [address] Assigned PCP 01/23/19 03/24/20 Mamadou Jiang PA-C [address] [place] [address] Assigned PCP 03/25/20 08/25/20 Pauline Augustine APRN BILLBOARD POSTER HELPER [address] [place] [address] Assigned PCP 08/26/20 07/13/21 Pauline Augustine APRN BILLBOARD POSTER HELPER [address] [place] [address] Assigned PCP 07/14/21 Kendrick Landry MD [address] [place], [place] 172165 Critical Care 06/27/22 Kendrick Landry MD [address] [place] [address] Critical Care 06/27/22 Nydia Murphy, W Community Health Worker Primary Care - CC 10/04/2410/06/24 documented as of this encounter
--- OUTSIDE RECORDS SUMMARY | 2024-12-02 20:11 | XMS_ITS | Encounter Summary ---
Author Organization [facility] Address [address] [place] [address] Care Team Providers Care Car Checker Name Role Phone Nik Dumont MD Primary Care Provider + [phone] Rajani Rodriguez APRN WOOL CARDER Unavailable Mamadou Jiang-C Unavailable +[phone] Rajani Rodriguez APRN WOOL CARDER Unavailable Mamadou Jiang-C Unavailable +[phone] Pauline Augustine MARKETING WRITER WOOL CARDER Unavailable + 500 Pauline Augustine MARKETING WRITER WOOL CARDER Primary Care Provider + Mamadou Jiang-C Unavailable + Pauline Augustine APRN WOOL CARDER Unavailable +00 Pauline Augustine APRN WOOL CARDER Unavailable + Kendrick Landry MD Unavailable +[phone] Kendrick Landry MD Unavailable +[phone] Nydia Murphy [facility] Unavailable +[phone] Encounter Details Date Type Department Care Team (Late st Contact Info) Description 08/16/2010 [facility] Medical Advice [address] [address] Conner Choudhary Social History Tobacco Use Types Packs/Day Years Used Date Smoking Tobacco: Never Alcohol Use Standard Drinks/Week Comments No 0 (1 standard drink = 0.6 oz pur e alcohol) Comments Yes Sex and Gender Information Value Date Recorded Sex Assigned at Not on file Legal Sex Female 4:25 AM ABSTRACT MANAGER Gender Identity Not on file Sexual Orientation Straight 09/24/2021 4: 08 PM ABSTRACT MANAGER Occupation Industry Job Start Date Job [...] Out COVID-19 09/29/2023 09/29/2023 09/29/2023 3:47 PM ABSTRACT MANAGER documented as of this encounter Care Teams Car Checker Relationship Specialty Start Date End Date Nik Dumont MD [address] [address] PCP - General 07/18/02 01/24/19 Rajani Rodriguez APRN WOOL CARDER [address] [place] [address] ROB[place] CARVER [address] PCP - Assigned PCP 04/25/18 10/30/18 Mamadou Jiang PA-C [address] [place] [address] PCP - Assigned PCP 10/31/18 11/30/18 Pauline Augustine APRN WOOL CARDER [address] [place] [address] PCP - General Nurse Practitioner - Family 01/25/19 Rajani Rodriguez APRN WOOL CARDER [address] [place] [address] ROB[place] CAR[place] [address] Assigned PCP 04/25/18 10/30/18 Mamadou Jiang PA-C [address] [place] [address] Assigned PCP 10/31/18 01/22/19 Pauline Augustine APRN WOOL CARDER [address] [place] [address] Assigned PCP 01/23/19 03/24/20 Mamadou Jiang PA-C [address] [place] [address] Assigned PCP 03/25/20 08/25/20 Pauline Augustine APRN WOOL CARDER [address] [place] [address] Assigned PCP 08/26/20 07/13/21 Pauline Augustine APRN WOOL CARDER [address] [place] [address] Assigned PCP 07/14/21 Kendrick Landry MD [address] [place] [address] Critical Care 06/27/22 Kendrick Landry MD [address] [place] [address] Critical Care 06/27/22 Nydia Murphy, [facility] Community Health Worker Primary Care - CC 10/04/2410/06/24 documented as of this encounter
--- OUTSIDE RECORDS SUMMARY | 2024-12-02 20:12 | XMS_ITS | Encounter Summary ---
Author Organization [facility] Address [address] [place] [address] Care Team Providers Care Cathead Worker Name Role Phone Pauline Augustine APRN LETTUCE TRIMMER Primary Care Provider + Pauline Augustine APRN LETTUCE TRIMMER Unavailable +[phone] Kendrick Landry MD Unavailable +[phone] Kendrick Landry MD Unavailable [phone] Nydia Murphy [facility] Unavailable +[phone] Encounter Details Date Type Department Care Team (Late st Contact Info) Description 06/27/[address] 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 No / Unsure 06/24/2022 9:26 AM CDT documented as of this encounter Plan of Treatment Not on file documented as of this encounter Visit Diagnoses Not on filedocumented in this encounter Additional Health Concerns Infection Onset Date Last Indicated Resolved Time Rule Out COVID-19 06/19/2023 06/19/2023 06/19/2023 10:19 PM CDT Rule Out COVID-19 09/29/2023 09/29/2023 09/29/2023 3:47 PM COST AND RISK ANALYSIS MANAGER Assessment Noted Time PHQ-9 Depression Total Score: 5 02/20/20 12:40 PM CDT documented as of this encounter Care Teams Cathead Worker Relationship Specialty Start Date End Date Pauline Augustine APRN LETTUCE TRIMMER [address] [address] [place] [address] PCP - General Nurse Practitioner - Family 01/25/19 Pauline Augustine APRN LETTUCE TRIMMER [address] [place] [address] Assigned PCP 07/14/21 Kendrick Landry MD [address] [place] [address] 735145 Critical Care 06/27/22 Kendrick Landry MD [address] [place] [address] Critical Care 06/27/22 Nydia uMrphy, [facility] Community Health Worker Primary Care - CC 10/04/2410/06/24 documented as of this encounter
--- OUTSIDE RECORDS SUMMARY | 2024-12-02 20:12 | XMS_ITS | Encounter Summary ---
Author Organization [facility] Address [address] [place] [address] Care Team Providers Care Clinic Office Assistant Name Role Phone Nik Dumont MD Primary Care Provider + [phone] Rajani Rodriguez CLOUD OPERATIONS ENGINEER CHICKEN HANGER Unavailable Mamadou Jiang PA-C Unavailable + Shawn-Rajani Quintanilla APRN CHICKEN HANGER Unavailable Mamadou Jiang PA-C Unavailable + Pauline Augustine CLOUD OPERATIONS ENGINEER CHICKEN HANGER Unavailable + Pauline Augustine CLOUD OPERATIONS ENGINEER CHICKEN HANGER Primary Care Provider + Mamadou Jiang PA-C Unavailable + Pauline Augustine CLOUD OPERATIONS ENGINEER CHICKEN HANGER Unavailable +00 Pauline Augustine CLOUD OPERATIONS ENGINEER CHICKEN HANGER Unavailable + Kendrick Landry MD Unavailable +[phone] Kendrick Landry MD Unavailable +[phone] Nydia Murphy [facility] Unavailable +[phone] Encounter Details Date Type Department Care Team (Late st Contact Info) Description 05/19/2017 [facility] [address] [address] Nik Dumont MD [address] [address] Social History Tobacco Use Types Packs/Day Years Used Date Smoking Tobacco: Never Smokeless Tobacco: Never Alcohol Use Standard Drinks/Week Comments No 0 (1 standard drink = 0.6 oz pur e alcohol) Comments No Sex and Gender Information Value Date Recorded Sex Assigned at Not on file Legal Sex Female 4:25 AM RECORDS OFFICER Gender Identity Not on file Sexual Orientation Straight 09/24/2021 4: 08 PM RECORDS OFFICER 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 * Telephone Encounter - Nik Dumont MD - 05/19/2017 2:46 PM CDT Needs to be seen, or needs to be an E-visit (as before) * Telephone Encounter - Татьяна Downs RN - 05/19/2017 1:38 PM CDT Pt last saw Dr. Dumont 2013, should be be seen again? Please advise. documented in this encounter Plan of Treatment Not on file documented as of this encounter Visit Diagnoses Not on filedocumented in this encounter Additional Health Concerns Infection Onset Date Last Indicated Resolved Time Rule Out COVID-19 06/19/2023 06/19/2023 06/19/2023 10:19 PM CDT Rule Out COVID-19 09/29/2023 09/29/2023 09/29/2023 3:47 PM RECORDS OFFICER Assessment Noted Time PHQ-9 Depression Total Score: 4 04/04/20 17 7:28 AM CDT documented as of this encounter Care Teams Clinic Office Assistant Relationship Specialty Start Date End Date Nik Dumont MD [address] [place] [address] PCP - General 07/18/02 01/24/19 Rajani Rodriguez APRN CHICKEN HANGER [address] [place] [address] ROB[place] CARVER [address] PCP - Assigned PCP 04/25/18 10/30/18 Mamadou Jiang PA-C [address] [place] [address] PCP - Assigned PCP 10/31/18 11/30/18 Pauline Augustine APRN CHICKEN HANGER [address] [place] [address] PCP - General Nurse Practitioner - Family 01/25/19 Rajani Rodriguez APRN CHICKEN HANGER [address] [place] [address] [place], [place] [address] Assigned PCP 04/25/18 10/30/18 Mamadou Jiang PA-C [address] [place] [address] Assigned PCP 10/31/18 01/22/19 Pauline Augustine APRN CHICKEN HANGER [address] [place] [address] Assigned PCP 01/23/19 03/24/20 Mamadou Jiang PA-C [address] [place] [address] Assigned PCP 03/25/20 08/25/20 Pauline Augustine APRN CHICKEN HANGER [address] [place] [address] Assigned PCP 08/26/20 07/13/21 Pauline Augustine APRN CHICKEN HANGER [address] [place] [address] Assigned PCP 07/14/21 Kendrick Landry MD [address] [place], [place] 447865 Critical Care 06/27/22 Kendrick Landry MD [address] [place], [place] 25929[address] Critical Care 06/27/22 Nydia Murphy, W Community Health Worker Primary Care - CC 10/04/2410/06/24 documented as of this encounter
--- OUTSIDE RECORDS SUMMARY | 2024-12-02 20:12 | XMS_ITS | Encounter Summary ---
Author Organization [facility] Address [address] [place] [address] Care Team Providers Care Housekeeping And Laundry Team Leader Name Role Phone aPuline Augustine APRN BUILDING MAINTENANCE CUSTODIAN Unavailable [phone] Pauline Augustine CONDUIT BENDER BUILDING MAINTENANCE CUSTODIAN Primary Care Provider + Mamadou Jiang PA-C Unavailable +[phone] Pauline Augustine APRN BUILDING MAINTENANCE CUSTODIAN Unavailable +[phone] Pauline Augustine APRN BUILDING MAINTENANCE CUSTODIAN Unavailable +[phone] Kendrick Landry MD Unavailable +[phone] Kendrick Landry MD Unavailable +[phone] Nydia Murphy CHW Unavailable +[phone] Encounter Details Date Type Department Care Team (Late st Contact Info) Description 03/22/2020 [facility] Medical Advice [address] [phone] Jeni Harmon MA Social History Tobacco Use Types Packs/Day Years Used Date Smoking Tobacco: Never Smokeless Tobacco: Never Alcohol Use Standard Drinks/Week Comments No 0 (1 standard drink = 0.6 oz pur e alcohol) PHQ-2 Answer Date Recorded PHQ-2 Score 1 11/24/2019 Comments No Sex and Gender Information Value Date Recorded Sex Assigned at Not on file Legal Sex Female 4:25 AM TELEVISION NEWS VIDEO EDITOR Gender Identity Not on file Sexual Orientation Straight 09/24/2021 4: 08 PM TELEVISION NEWS VIDEO EDITOR Occupation Industry Job Start Date Job End [...] Out COVID-19 09/29/2023 09/29/2023 09/29/2023 3:47 PM TELEVISION NEWS VIDEO EDITOR Assessment Noted Time PHQ-9 Depression Total Score: 3 11/24/19 20 8:57 AM TELEVISION NEWS VIDEO EDITOR documented as of this encounter Care Teams Housekeeping And Laundry Team Leader Relationship Specialty Start Date End Date Pauline Augustine APRN BUILDING MAINTENANCE CUSTODIAN [address] [place] [address] PCP - General Nurse Practitioner - Family 01/25/19 Pauline Augustine APRN BUILDING MAINTENANCE CUSTODIAN [address] [place] [address] Assigned PCP 01/23/19 03/24/20 Mamadou Jiang PA-C [address] [place] [address] Assigned PCP 03/25/20 08/25/20 Pauline Augustine APRN BUILDING MAINTENANCE CUSTODIAN [address] [place] [address] Assigned PCP 08/26/20 07/13/21 Pauline Augustine APRN BUILDING MAINTENANCE CUSTODIAN [address] [place] [address] Assigned PCP 07/14/21 Kendrick Landry MD 9 [place] [address] Critical Care 06/27/22 Kendrick Landry MD 9 [place] [address] Critical Care 06/27/22 Nydia Murphy, W Community Health Worker Primary Care - CC 10/04/2410/06/24 documented as of this encounter
--- OUTSIDE RECORDS SUMMARY | 2024-12-02 20:12 | XMS_ITS | Encounter Summary ---
Author Organization [facility] Address [address] [place] [address]. [place] [address] Care Team Providers Care Route Carrier Name Role Phone Pauline Augustine APRN INSURANCE CONSULTANT Primary Care Provider + Pauline Augustine APRN INSURANCE CONSULTANT Unavailable +[phone] Kendrick Landry MD Unavailable +[phone] Kendrick Landry MD Unavailable +[phone] Nydia Murphy CHW Unavailable +[phone] Encounter Details Date Type Department Care Team (Late st Contact Info) Description 11/25/2022 [facility] Medical Adv[facility] [address] [place] [address] Pauline Augustine APRN INSURANCE CONSULTANT [address] [place] [address] Social History Tobacco Use Types Packs/Day Years Used Date Smoking Tobacco: Never Passive Smoke Exposure: Never Smokeless Tobacco: Never Alcohol Use Standard Drinks/Week Comments No 0 (1 standard drink = 0.6 oz pur e alcohol) PHQ-2 Answer Date Recorded PHQ-2 Score 1 11/25/2022 Comments No Sex and Gender Information Value Date Recorded Sex Assigned at Not on file Legal Sex Female 4:25 AM AERIAL SPRAYER Gender Identity Not on file Sexual Orientation Straight 09/24/2021 4: 08 PM AERIAL SPRAYER 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 No / Unsure 11/24/2022 3:05 PM AERIAL SPRAYER documented as of this encounter Miscellaneous Notes * Telephone Encounter - Toshia Hoyos RN - 11/25/2022 12:19 PM AERIAL SPRAYER Sent refill request in separate encounter. Toshia Massey RN AL SPRAYER documented in this encounter Plan of Treatment Not on file documented as of this encounter Visit Diagnoses Not on filedocumented in this encounter Additional Health Concerns Infection Onset Date Last Indicated Resolved Time Rule Out COVID-19 06/19/2023 06/19/2023 06/19/2023 10:19 PM CDT Rule Out COVID-19 09/29/2023 09/29/2023 09/29/2023 3:47 PM AERIAL SPRAYER Assessment Noted Time PHQ-9 Depression Total Score: 4 08/26/20 3:41 PM AERIAL SPRAYER documented as of this encounter Care Teams Route Carrier Relationship Specialty Start Date End Date Pauline Augustine APRN INSURANCE CONSULTANT [address] [place] [address] PCP - General Nurse Practitioner - Family 01/25/19 Pauline Augustine APRN INSURANCE CONSULTANT [address] [place] [address] Assigned PCP 07/14/21 Kendrick Landry MD [address] [place] [address] [id number] Critical Care 06/27/22 Kendrick Landry MD [address] [place] [address] 092215 Critical Care 06/27/22 Nydia Murphy, [facility] Community Health Worker Primary Care - CC 10/04/2410/06/24 documented as of this encounter
--- OUTSIDE RECORDS SUMMARY | 2024-12-02 20:12 | XMS_ITS | Encounter Summary ---
Author Organization [facility] Address [address] [place] [address] Care Team Providers Care Game Programer Name Role Phone Pauline Augustine APRN BRANCH COORDINATOR Unavailable [phone] Pauline Augustine CUSTOMER ASSOCIATE BRANCH COORDINATOR Primary Care Provider + Mamadou Jiang PA-C Unavailable +[phone] Pauline Augustine APRN BRANCH COORDINATOR Unavailable + Pauline Augustine APRN BRANCH COORDINATOR Unavailable +[phone] Kendrick Landry MD Unavailable +[phone] Kendrick Landry MD Unavailable + [phone] Nydia Murphy CHW Unavailable +[phone] Encounter Details Date Type Department Care Team (Late st Contact Info) Description 12/26/2019 [facility] Medical Advice [facility], [address] [place] [phone] Mary Jo Kincaid, PUMP INSTALLATION AND SERVICER Social History Tobacco Use Types Packs/Day Years Used Date Smoking Tobacco: Never Smokeless Tobacco: Never Alcohol Use Standard Drinks/Week Comments No 0 (1 standard drink = 0.6 oz pur e alcohol) PHQ-2 Answer Date Recorded PHQ-2 Score 1 11/24/2019 Comments No Sex and Gender Information Value Date Recorded Sex Assigned at Not on file Legal Sex Female 4:25 AM TOE TRIMMER Gender Identity Not on file Sexual Orientation Straight 09/24/2021 4: 08 PM TOE TRIMMER Occupation Industry Job Start Date Job End [...] Out COVID-19 09/29/2023 09/29/2023 09/29/2023 3:47 PM TOE TRIMMER Assessment Noted Time PHQ-9 Depression Total Score: 3 11/24/19 20 8:57 AM TOE TRIMMER documented as of this encounter Care Teams Game Programer Relationship Specialty Start Date End Date Pauline Augustine APRN BRANCH COORDINATOR [address] [place] [address] PCP - General Nurse Practitioner - Family 01/25/19 Pauline Augustine APRN BRANCH COORDINATOR [address] [place] [address] Assigned PCP 01/23/19 03/24/20 Mamadou Jiang PA-C [address] [place] [address] Assigned PCP 03/25/20 08/25/20 Pauline Augustine APRN BRANCH COORDINATOR [address] [place] [address] Assigned PCP 08/26/20 07/13/21 Pauline Augustine APRN BRANCH COORDINATOR [address] [place] [address] Assigned PCP 07/14/21 Kendrick Landry MD [address] [place] [address] Critical Care 06/27/22 Kendrick Landry MD [facility] [place] [address] Critical Care 06/27/22 Nydia Murphy, W Community Health Worker Primary Care - CC 10/04/2410/06/24 documented as of this encounter
--- OUTSIDE RECORDS SUMMARY | 2024-12-02 20:12 | XMS_ITS | Encounter Summary ---
Author Organization [facility] Address [address] [place] [address] Care Team Providers Care Biazzi Nitrator Operator Name Role Phone Pauline Augustine APRN OUTDOOR ADVENTURE LEADER Primary Care Provider + Pauline Augustine APRN OUTDOOR ADVENTURE LEADER Unavailable [phone] Kendrick Landry MD Unavailable +[phone] Kendrick Landry MD Unavailable +[phone] Nydia Murphy CHW Unavailable [phone] Encounter Details Date Type Department Care Team (Late st Contact Info) Description 09/15/2022 [facility] Medical Advice [address] [address] Claire Martinez Social History Tobacco Use Types Packs/Day Years Used Date Smoking Tobacco: Never Smokeless Tobacco: Never Alcohol Use Standard Drinks/Week Comments No 0 (1 standard drink = 0.6 oz pur e alcohol) PHQ-2 Answer Date Recorded PHQ-2 Score 2 08/26/2022 Comments No Sex and Gender Information Value Date Recorded Sex Assigned at Not on file Legal Sex Female 4:25 AM HEAT SEALING MACHINE OPERATOR Gender Identity Not on file Sexual Orientation Straight 09/24/2021 4: 08 PM HEAT SEALING MACHINE OPERATOR Occupation Industry Job Start Date Job End [...] Out COVID-19 09/29/2023 09/29/2023 09/29/2023 3:47 PM HEAT SEALING MACHINE OPERATOR Assessment Noted Time PHQ-9 Depression Total Score: 4 08/26/20 3:41 PM HEAT SEALING MACHINE OPERATOR documented as of this encounter Care Teams Biazzi Nitrator Operator Relationship Specialty Start Date End Date Pauline Augustine APRN OUTDOOR ADVENTURE LEADER [address] [place] [address] PCP - General Nurse Practitioner - Family 01/25/19 Pauline Augustine APRN OUTDOOR ADVENTURE LEADER [address] [place] [address] Assigned PCP 07/14/21 Kendrick Landry MD 9 [place], [place] 813585 Critical Care 06/27/22 Kendrick Landry MD [address] [place], [place] 9214[address] Critical Care 06/27/22 Nydia Murphy, [place] Community Health Worker Primary Care - CC 10/04/2410/06/24 documented as of this encounter
--- OUTSIDE RECORDS SUMMARY | 2024-12-02 20:12 | XMS_ITS | Encounter Summary ---
Author Organization [facility] Address [address] [place] [address] Care Team Providers Care Motion Picture Cameraman Name Role Phone Pauline Augustine APRN MOBILE APPLICATION DEVELOPMENT LEAD Primary Care Provider + Pauline Augustine APRN MOBILE APPLICATION DEVELOPMENT LEAD Unavailable [phone] Kendrick Landry MD Unavailable [phone] Kendrick Landry MD Unavailable [phone] Nydia Murphy CHW Unavailable [phone] Encounter Details Date Type Department Care Team (Late st Contact Info) Description 08/07/2022 [facility] Medical Advice [facility] Respiratory [address] [place] [address] Laura Enamorado, RT Social History Tobacco Use Types Packs/Day Years Used Date Smoking Tobacco: Never Smokeless Tobacco: Never Alcohol Use Standard Drinks/Week Comments No 0 (1 standard drink = 0.6 oz pur e alcohol) PHQ-2 Answer Date Recorded PHQ-2 Score 2 06/24/2022 Comments No Sex and Gender Information Value Date Recorded Sex Assigned at Not on file Legal Sex Female 4:25 AM FAMILY LAW LEGAL ASSISTANT Gender Identity Not on file Sexual Orientation Straight 09/24/2021 4: 08 PM FAMILY LAW LEGAL ASSISTANT Occupation Industry Job Start Date Job End [...] Out COVID-19 09/29/2023 09/29/2023 09/29/2023 3:47 PM FAMILY LAW LEGAL ASSISTANT Assessment Noted Time PHQ-9 Depression Total Score: 5 02/20/20 12:40 PM CDT documented as of this encounter Care Teams Motion Picture Cameraman Relationship Specialty Start Date End Date Pauline Augustine APRN MOBILE APPLICATION DEVELOPMENT LEAD [address] [place] [address] PCP - General Nurse Practitioner - Family 01/25/19 Pauline Augustine APRN MOBILE APPLICATION DEVELOPMENT LEAD [address] [address] [address] Assigned PCP 07/14/21 Kendrick Landry MD [address] [place], [place] 2738[address] Critical Care 06/27/22 Kendrick Landry MD [address] [place], [place] 5906[address] Critical Care 06/27/22 Nydia Murphy, [facility] Community Health Worker Primary Care - CC 10/04/2410/06/24 documented as of this encounter
--- OUTSIDE RECORDS SUMMARY | 2024-12-02 20:12 | XMS_ITS | Encounter Summary ---
Author Organization [facility] Address [address] [place] [address] Care Team Providers Care Nut Threader Name Role Phone Nik Dumont MD Primary Care Provider + [phone] Rajani Rodriguez APRN TUBER MACHINE OPERATOR HELPER Unavailable Mamadou Jiang-C Unavailable +[phone] Rajani Rodriguez APRN TUBER MACHINE OPERATOR HELPER Unavailable Mamadou Jiang-C Unavailable +[phone] Pauline Augustine APRN TUBER MACHINE OPERATOR HELPER Unavailable [phone] Pauline Augustine APRN TUBER MACHINE OPERATOR HELPER Primary Care Provider + Mamadou Jiang-C Unavailable +[phone] Pauline Augustine APRN TUBER MACHINE OPERATOR HELPER Unavailable +[phone] Pauline Augustine APRN TUBER MACHINE OPERATOR HELPER Unavailable +[phone] Kendrick Landry MD Unavailable [phone] Kendrick Landry MD Unavailable +[phone] Nydia Murphy [facility] Unavailable +[phone] Reason for Visit * Reason Onset Date Comments Symptoms 07/10/2017 improving Vaginal Problem 07/10/2017 requesting Diflu can Encounter Details Date Type Department Care Team (Late st Contact Info) Description 07/10/2017 [facility] Medical Advice [facility] [address] [place] [address] Hollie Gonzalez, FORESTRY FIRE AIDE TUBER MACHINE OPERATOR HELPER [address] [facility] [place] [address] Symptoms (improving); Vaginal Problem (req... 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 Sent rx per verbal. Updated patient via [employer] message. documented in this encounter Plan of Treatment Not on file documented as of this encounter Visit Diagnoses Diagnosis Yeast infection of the vagina- Primary Candidiasis of vulva and vagina documented in this encounter Additional Health Concerns Infection Onset Date Last Indicated Resolved Time Rule Out COVID-19 06/19/2023 06/19/2023 06/19/2023 10:19 PM CDT Rule Out COVID-19 09/29/2023 09/29/2023 09/29/2023 3:47 PM PHYSICS TUTOR Assessment Noted Time PHQ-9 Depression Total Score: 4 04/04/20 17 7:28 AM CDT documented as of this encounter Care Teams Nut Threader Relationship Specialty Start Date End Date Nik Dumont MD [address] [place] [address] PCP - General 07/18/02 01/24/19 Shawn-Rajani Quintanilla APRN TUBER MACHINE OPERATOR HELPER [facility] [facility] [place] [address] PCP - Assigned PCP 04/25/18 10/30/18 Mamadou Jiang PA-C [address] [place] [address] PCP - Assigned PCP 10/31/18 11/30/18 Pauline Augustine APRN TUBER MACHINE OPERATOR HELPER [address] [place] [address] PCP - General Nurse Practitioner - Family 01/25/19 Rajani Rodriguez APRN TUBER MACHINE OPERATOR HELPER [address] [place] [address] [place] [address] Assigned PCP 04/25/18 10/30/18 Mamadou Jiang PA-C [address] [place] [address] Assigned PCP 10/31/18 01/22/19 Pauline Augustine APRN TUBER MACHINE OPERATOR HELPER [address] [place] [address] Assigned PCP 01/23/19 03/24/20 Mamadou Jiang PA-C [address] [place] [address] Assigned PCP 03/25/20 08/25/20 Pauline Augustine APRN TUBER MACHINE OPERATOR HELPER [address] [place] [address] Assigned PCP 08/26/20 07/13/21 Pauline Augustine APRN TUBER MACHINE OPERATOR HELPER [address] [place] [address] Assigned PCP 07/14/21 Kendrick Landry MD [address] [place] [address] Critical Care 06/27/22 Kendrick Landry MD [address] [place] [address] Critical Care 06/27/22 Nydia Murphy, W Community Health Worker Primary Care - CC 10/04/2410/06/24 documented as of this encounter
--- OUTSIDE RECORDS SUMMARY | 2024-12-02 20:12 | XMS_ITS | Encounter Summary ---
Author Organization [facility] Address [address] [place] [address] Care Team Providers Care Top Lift Scourer Name Role Phone Nik Dumont MD Primary Care Provider + [phone] ShawnRajani Rocha FAMILY PRACTICE DOCTOR PATIENT CARE PROVIDER Unavailable Mamadou Jiang PA-C Unavailable + ShawnRajani Rocha APRN PATIENT CARE PROVIDER Unavailable Mamadou Jiang PA-C Unavailable + Pauline Augustine FAMILY PRACTICE DOCTOR PATIENT CARE PROVIDER Unavailable + Pauline Augustine FAMILY PRACTICE DOCTOR PATIENT CARE PROVIDER Primary Care Provider + Mamadou Jiang PA-C Unavailable + Pauline Augustine APRN PATIENT CARE PROVIDER Unavailable +[phone] Pauline Augustine APRN PATIENT CARE PROVIDER Unavailable + Kendrick Landry MD Unavailable +[phone] Kendrick Landry MD Unavailable [phone] Nydia Murphy [facility] Unavailable +[phone] Reason for Visit * Reason Onset Date Comments Care 02/07/2013 Encounter Details Date Type Department Care Team (Late st Contact Info) Description 02/07/2013 [facility] [place] [facility] [address] [place] [address] Case Ibarra MD RETIRED Care Social History Tobacco Use Types Packs/Day Years Used Date Smoking Tobacco: Never Smokeless Tobacco: Never Alcohol Use Standard Drinks/Week Comments No 0 (1 standard drink = 0.6 oz pur e alcohol) Comments Yes Sex and Gender Information Value Date Recorded Sex Assigned at Not on file Legal Sex Female 4:25 AM BUILDING INSULATION INSTALLER Gender Identity Not on file Sexual Orientation Straight 09/24/2021 4: 08 PM BUILDING INSULATION INSTALLER Occupation Industry Job Start Date Job End [...] Rule Out COVID-09/29/2023 09/29/2023 09/29/2023 3:47 PM BUILDING INSULATION INSTALLER documented as of this encounter Care Teams Top Lift Scourer Relationship Specialty Start Date End Date Nik Dumont MD [address] [place] [address] PCP - General 07/18/02 01/24/19 Rajani Rodriguez APRN PATIENT CARE PROVIDER [address] [place] [address] [place] [address] PCP - Assigned PCP 04/25/18 10/30/18 Mamadou Jiang PA-C [address] [place] [address] PCP - Assigned PCP 10/31/18 11/30/18 Pauline Augustine APRN PATIENT CARE PROVIDER [address] [place] [address] PCP - General Nurse Practitioner - Family 01/25/19 Rajani Rodriguez APRN PATIENT CARE PROVIDER [address] [place] [address] [place] [address] Assigned PCP 04/25/18 10/30/18 Mamadou Jiang PA-C [address] [place] [address] Assigned PCP 10/31/18 01/22/19 Pauline Augustine APRN PATIENT CARE PROVIDER [address] [place] [address] Assigned PCP 01/23/19 03/24/20 Mamadou Jiang PA-C [address] [place] [address] Assigned PCP 03/25/20 08/25/20 Pauline Augustine APRN PATIENT CARE PROVIDER [address] [place] [address] Assigned PCP 08/26/20 07/13/21 Pauline Augustine APRN PATIENT CARE PROVIDER [address] [place] [address] Assigned PCP 07/14/21 Kendrick Landry MD [address] [place] [address] Critical Care 06/27/22 Kendrick Landry MD [address] [place] [address] Critical Care 06/27/22 Nydia Murphy, [facility] Community Health Worker Primary Care - CC 10/04/2410/06/24 documented as of this encounter
--- OUTSIDE RECORDS SUMMARY | 2024-12-02 20:12 | XMS_ITS | Encounter Summary ---
Author Organization [facility] Address [address] [place] [address] Care Team Providers Care Grounds Maintenance Worker Name Role Phone Nik Dumont MD Primary Care Provider + [phone] ShawnRajani Rocha APRN L D RN Unavailable Mamadou Jiang PA-C Unavailable + Shawn-Rajani Quintanilla APRN L D RN Unavailable Mamadou Jiang PA-C Unavailable + Pauline Augustine SCRAPE GATHERER L D RN Unavailable + Pauline Augustine SCRAPE GATHERER L D RN Primary Care Provider + Mamadou iJang PA-C Unavailable + Pauline Augustine APRN L D RN Unavailable +[phone] Pauline Augustine APRN L D RN Unavailable +[phone] Kendrick Landry MD Unavailable +[phone] Kendrick Landry MD Unavailable +[phone] Nydia Murphy [facility] Unavailable +[phone] Encounter Details Date Type Department Care Team (Late st Contact Info) Description 06/14/2010 [facility] [address] [place] [address] Case Ibarra MD RETIRED Social History Tobacco Use Types Packs/Day Years Used Date Smoking Tobacco: Never Alcohol Use Standard Drinks/Week Comments No 0 (1 standard drink = 0.6 oz pur e alcohol) Comments No Sex and Gender Information Value Date Recorded Sex Assigned at Not on file Legal Sex Female 4:25 AM PROFILE SHAPER OPERATOR Gender Identity Not on file Sexual Orientation Straight 09/24/2021 4: 08 PM PROFILE SHAPER OPERATOR Occupation Industry Job Start Date Job [...] Out COVID-19 09/29/2023 09/29/2023 09/29/2023 3:47 PM PROFILE SHAPER OPERATOR documented as of this encounter Care Teams Grounds Maintenance Worker Relationship Specialty Start Date End Date Nik Dumont MD [address] [address] PCP - General 07/18/02 01/24/19 Rajani Rodriguez APRN L D RN [address] [place] [address] [place] [address] PCP - Assigned PCP 04/25/18 10/30/18 Mamadou Jiang PA-C [address] [place] [address] PCP - Assigned PCP 10/31/18 11/30/18 [place] [address] [place] [address] PCP - General Nurse Practitioner - Family 01/25/19 Rajani Rodriguez APRN L D RN [address] [place] [address] [place] [address] Assigned PCP 04/25/18 10/30/18 Mamadou Jiang PA-C [address] [place] [address] Assigned PCP 10/31/18 01/22/19 [place] [address] [place] [address] Assigned PCP 01/23/19 03/24/20 Mamadou Jiang PA-C [address] [place] [address] Assigned PCP 03/25/20 08/25/20 [place] [address] [address] [place], [place] 2319468 Assigned PCP 08/26/20 07/13/21 [place] [address] [address], [place] 359[address]68 Assigned PCP 07/14/21 Kendrick Landry MD [address] [place] [address] Critical Care 06/27/22 Kendrick Landry MD [address] [place] [address] Critical Care 06/27/22 Nydia Murphy, [facility] Community Health Worker Primary Care - CC 10/04/2410/06/24 documented as of this encounter
--- OUTSIDE RECORDS SUMMARY | 2024-12-02 20:12 | XMS_ITS | Encounter Summary ---
Author Organization [facility] Address [address] [place] [address] Care Team Providers Care Civil Engineering Designer Name Role Phone Pauline Augustine APRN FIGHTER PILOT Primary Care Provider + Pauline Augustine APRN FIGHTER PILOT Unavailable +[phone] Kendrick Landry MD Unavailable +[phone] Kendrick Landry MD Unavailable +[phone] Nydia Murphy CHW Unavailable +[phone] Encounter Details Date Type Department Care Team (Late st Contact Info) Description 02/13/2022 [facility] Medical Advice [address] [address] Lilliam Tatum Social History Tobacco Use Types Packs/Day Years Used Date Smoking Tobacco: Never Smokeless Tobacco: Never Alcohol Use Standard Drinks/Week Comments No 0 (1 standard drink = 0.6 oz pur e alcohol) PHQ-2 Answer Date Recorded PHQ-2 Score 2 09/30/2021 Comments No Sex and Gender Information Value Date Recorded Sex Assigned at Not on file Legal Sex Female 4:25 AM RETAIL EVENT AND SALES ASSISTANT Gender Identity Not on file Sexual Orientation Straight 09/24/2021 4: 08 PM RETAIL EVENT AND SALES ASSISTANT Occupation Industry Job Start Date Job [...] Out COVID-19 09/29/2023 09/29/2023 09/29/2023 3:47 PM RETAIL EVENT AND SALES ASSISTANT Assessment Noted Time PHQ-9 Depression Total Score: 7 09/30/19 22 2:53 PM RETAIL EVENT AND SALES ASSISTANT documented as of this encounter Care Teams Civil Engineering Designer Relationship Specialty Start Date End Date Pauline Augustine APRN FIGHTER PILOT [address] [place] [address] PCP - General Nurse Practitioner - Family 01/25/19 Pauline Augustine APRN FIGHTER PILOT [address] [place] [address] Assigned PCP 07/14/21 Kendrick Landry MD 9 [place], [place] 532415 Critical Care 06/27/22 Kendrick Landry MD [address] [place], [place] [address] Critical Care 06/27/22 Nydia Murphy, [facility] Community Health Worker Primary Care - CC 10/04/2410/06/24 documented as of this encounter
--- OUTSIDE RECORDS SUMMARY | 2024-12-02 20:12 | XMS_ITS | Encounter Summary ---
Author Organization [facility] Address [address] [place] [address] Care Team Providers Care Outside Machinist Helper Name Role Phone Nik Dumont MD Primary Care Provider + [phone] ShawnRajani Rocha APRN SCHOLARSHIP COUNSELOR Unavailable Mamadou Jiang PA-C Unavailable + Shawn-Rajani Quintanilla APRN SCHOLARSHIP COUNSELOR Unavailable Mamadou Jiang PA-C Unavailable + Pauline Augustine IRON ASSORTER SCHOLARSHIP COUNSELOR Unavailable + Pauline Augustine IRON ASSORTER SCHOLARSHIP COUNSELOR Primary Care Provider + Mamadou Jiang PA-C Unavailable + Pauline Augustine APRN SCHOLARSHIP COUNSELOR Unavailable +00 Pauline Augustine APRN SCHOLARSHIP COUNSELOR Unavailable +00 Kendrick Landry MD Unavailable +[phone] Kendrick Landry MD Unavailable +[phone] Nydia Murphy [facility] Unavailable +[phone] Encounter Details Date Type Department Care Team (Late st Contact Info) Description 10/22/2012 [facility] [address] [place] [address] Case Ibarra MD RETIRED Social History Tobacco Use Types Packs/Day Years Used Date Smoking Tobacco: Never Smokeless Tobacco: Never Alcohol Use Standard Drinks/Week Comments No 0 (1 standard drink = 0.6 oz pur e alcohol) Comments Yes Sex and Gender Information Value Date Recorded Sex Assigned at Not on file Legal Sex Female 4:25 AM TRANSFER PUMPER Gender Identity Not on file Sexual Orientation Straight 09/24/2021 4: 08 PM TRANSFER PUMPER Occupation Industry Job Start Date Job End [...] Rule Out COVID-09/29/2023 09/29/2023 09/29/2023 3:47 PM TRANSFER PUMPER documented as of this encounter Care Teams Outside Machinist Helper Relationship Specialty Start Date End Date Nik Dumont MD [address] [address] PCP - General 07/18/02 01/24/19 Rajani Rodriguez APRN SCHOLARSHIP COUNSELOR [address] [place] [address] [place] [address] PCP - Assigned PCP 04/25/18 10/30/18 Mamadou Jiang PA-C [address] [place] [address] PCP - Assigned PCP 10/31/18 11/30/18 Pauline Augustine APRN SCHOLARSHIP COUNSELOR [address] [place] [address] PCP - General Nurse Practitioner - Family 01/25/19 Rajani Rodriguez APRN SCHOLARSHIP COUNSELOR [address] [place] [address] [place] [address] Assigned PCP 04/25/18 10/30/18 Mamadou Jiang PA-C [address] [place], [place] 3208668 Assigned PCP 10/31/18 01/22/19 Pauline Augustine APRN SCHOLARSHIP COUNSELOR [address] [place], [place] 2693968 Assigned PCP 01/23/19 03/24/20 Mamadou Jiang PA-C [address] [place] [address] Assigned PCP 03/25/20 08/25/20 Pauline Augustine APRN SCHOLARSHIP COUNSELOR [address] [place], [place] 4845568 Assigned PCP 08/26/20 07/13/21 Pauline Augustine APRN SCHOLARSHIP COUNSELOR [address] [place], [place] 0445568 Assigned PCP 07/14/21 Kendrick Landry MD 9 [place] [address] Critical Care 06/27/22 Kendrick Landry MD 909 [place] [address] Critical Care 06/27/22 Nydia Murphy, W Community Health Worker Primary Care - CC 10/04/2410/06/24 documented as of this encounter
--- OUTSIDE RECORDS SUMMARY | 2024-12-02 20:12 | XMS_ITS | Encounter Summary ---
Author Organization [facility] Address [address] [place] [address] Care Team Providers Care Syrup Filterer Name Role Phone Nik Dumont MD Primary Care Provider + [phone] ShawnRajani Rocha APRN FOLDER TAPER OPERATOR Unavailable Mamadou Jiang PA-C Unavailable + Shawn-Rajani Quintanilla APRN FOLDER TAPER OPERATOR Unavailable Mamadou Jiang PA-C Unavailable + Pauline Augustine EMERGENCY TECHNICIAN FOLDER TAPER OPERATOR Unavailable + Pauline Augustine EMERGENCY TECHNICIAN FOLDER TAPER OPERATOR Primary Care Provider + Mamadou Jiang PA-C Unavailable + Pauline Augustine APRN FOLDER TAPER OPERATOR Unavailable +00 Pauline Augustine APRN FOLDER TAPER OPERATOR Unavailable +00 Kendrick Landry MD Unavailable +[phone] Kendrick Landry MD Unavailable +[phone] Nydia Murphy [facility] Unavailable +[phone] Encounter Details Date Type Department Care Team (Late st Contact Info) Description 07/09/2010 [facility] [address] [place] [address] Case Ibarra MD RETIRED Social History Tobacco Use Types Packs/Day Years Used Date Smoking Tobacco: Never Alcohol Use Standard Drinks/Week Comments No 0 (1 standard drink = 0.6 oz pur e alcohol) Comments No Sex and Gender Information Value Date Recorded Sex Assigned at Not on file Legal Sex Female 4:25 AM PUNCHBOARD FILLING MACHINE OPERATOR Gender Identity Not on file Sexual Orientation Straight 09/24/2021 4: 08 PM PUNCHBOARD FILLING MACHINE OPERATOR Occupation Industry Job Start Date [...] Out COVID-19 09/29/2023 09/29/2023 09/29/2023 3:47 PM PUNCHBOARD FILLING MACHINE OPERATOR documented as of this encounter Care Teams Syrup Filterer Relationship Specialty Start Date End Date Nik Dumont MD [address] [address] PCP - General 07/18/02 01/24/19 Rajani Rodriguez APRN FOLDER TAPER OPERATOR [address] [place] [address] [place] [address] PCP - Assigned PCP 04/25/18 10/30/18 Mamadou Jiang PA-C 24[address] [place] [address] PCP - Assigned PCP 10/31/18 11/30/18 Pauline Augustine APRN FOLDER TAPER OPERATOR [address] [place] [address] PCP - General Nurse Practitioner - Family 01/25/19 Rajani Rodriguez APRN FOLDER TAPER OPERATOR [address] [place] [address] [place] [address] Assigned PCP 04/25/18 10/30/18 Mamadou Jiang PA-C [address] [place] [address] Assigned PCP 10/31/18 01/22/19 Pauline Augustine APRN FOLDER TAPER OPERATOR [address] [place] [address] Assigned PCP 01/23/19 03/24/20 Mamadou Jiang PA-C 70354 [place] [address] Assigned PCP 03/25/20 08/25/20 Pauline Augustine APRN FOLDER TAPER OPERATOR [address] [place], [place] 2942768 Assigned PCP 08/26/20 07/13/21 Pauline Augustine APRN FOLDER TAPER OPERATOR [address] [place], [place] 3860668 Assigned PCP 07/14/21 Kendrick Landry MD 9 [place] [address] Critical Care 06/27/22 Kendrick Landry MD 909 [place] [address] Critical Care 06/27/22 Nydia Murphy, [facility] Community Health Worker Primary Care - CC 10/04/2410/06/24 documented as of this encounter
--- OUTSIDE RECORDS SUMMARY | 2024-12-02 20:12 | XMS_ITS | Encounter Summary ---
Author Organization [facility] Address [address] [place] [address] Care Team Providers Care Dry Cleaning Machine Operator Name Role Phone Nik Dumont MD Primary Care Provider + [phone] Rajani Rodriguez APRN ARMATURE STRAIGHTENER Unavailable Mamadou Jiang-C Unavailable +[phone] Rajani Rodriguez APRN ARMATURE STRAIGHTENER Unavailable Mamadou Jiang-C Unavailable +[phone] Pauline Augustine SHOVEL LOG LOADER OPERATOR ARMATURE STRAIGHTENER Unavailable + [phone] Pauline Augustine SHOVEL LOG LOADER OPERATOR ARMATURE STRAIGHTENER Primary Care Provider + Mamadou Jiang PA-C Unavailable + Pauline Augustine APRN ARMATURE STRAIGHTENER Unavailable +00 Pauline Augustine APRN ARMATURE STRAIGHTENER Unavailable + Kendrick Landry MD Unavailable +[phone] Kendrick Landry MD Unavailable +[phone] Nydia Murphy [facility] Unavailable [phone] Encounter Details Date Type Department Care Team (Late st Contact Info) Description 06/11/2017 [facility] [address] [place] [address] Gina Becker MA Social History Tobacco Use Types Packs/Day Years Used Date Smoking Tobacco: Never Smokeless Tobacco: Never Alcohol Use Standard Drinks/Week Comments No 0 (1 standard drink = 0.6 oz pur e alcohol) Comments No Sex and Gender Information Value Date Recorded Sex Assigned at Not on file Legal Sex Female 4:25 AM ANGULAR JS DEVELOPER Gender Identity Not on file Sexual Orientation Straight 09/24/2021 4: 08 PM ANGULAR JS DEVELOPER Occupation Industry Job Start Date Job End [...] Out COVID-19 09/29/2023 09/29/2023 09/29/2023 3:47 PM ANGULAR JS DEVELOPER Assessment Noted Time PHQ-9 Depression Total Score: 4 04/04/20 17 7:28 AM CDT documented as of this encounter Care Teams Dry Cleaning Machine Operator Relationship Specialty Start Date End Date Nik Dumont MD [address] [address] PCP - General 07/18/02 01/24/19 Rjaani Rodriguez APRN ARMATURE STRAIGHTENER [address] [place] [address] [place] [address] PCP - Assigned PCP 04/25/18 10/30/18 Mamadou Jiang PA-C 31105 [place] [address] PCP - Assigned PCP 10/31/18 11/30/18 Pauline Augustine APRN ARMATURE STRAIGHTENER [address] [place] [address] PCP - General Nurse Practitioner - Family 01/25/19 Rajani Rodriguez APRN ARMATURE STRAIGHTENER [address] [place] [address] [place] [address] Assigned PCP 04/25/18 10/30/18 Mamadou Jiang PA-C [address] [place] [address] Assigned PCP 10/31/18 01/22/19 Pauline Augustine APRN ARMATURE STRAIGHTENER [address] [place] [address] Assigned PCP 01/23/19 03/24/20 Mamadou Jiang PA-C [address] [place] [address] Assigned PCP 03/25/20 08/25/20 Pauline Augustine APRN ARMATURE STRAIGHTENER [address] [place] [address] Assigned PCP 08/26/20 07/13/21 Pauline Augustine APRN ARMATURE STRAIGHTENER [address] [place] [address] Assigned PCP 07/14/21 Kendrick Landry MD 909 [place] [address] Critical Care 06/27/22 Kendrick Landry MD 909 [place] [address] Critical Care 06/27/22 Nydia Murphy, [facility] Community Health Worker Primary Care - CC 10/04/2410/06/24 documented as of this encounter
--- OUTSIDE RECORDS SUMMARY | 2024-12-02 20:12 | XMS_ITS | Encounter Summary ---
Author Organization [facility] Address [address] [place] [address] Care Team Providers Care Operation Specialist Name Role Phone Nik Dumont MD Primary Care Provider + [phone] ShawnRajani Rocha APRN SYSTEMS ENGINEERING MANAGER Unavailable Mamadou Jiang PA-C Unavailable + Shawn-Rajani Quintanilla APRN SYSTEMS ENGINEERING MANAGER Unavailable Mamadou Jiang PA-C Unavailable + Pauline Augustine AUTOMOBILE UPHOLSTERER APPRENTICE SYSTEMS ENGINEERING MANAGER Unavailable + Pauline Augustine AUTOMOBILE UPHOLSTERER APPRENTICE SYSTEMS ENGINEERING MANAGER Primary Care Provider + Mamadou Jiang PA-C Unavailable + Pauline Augustine APRN SYSTEMS ENGINEERING MANAGER Unavailable +00 Pauline Augustine APRN SYSTEMS ENGINEERING MANAGER Unavailable +00 Kendrick Landry MD Unavailable +[phone] Kendrick Landry MD Unavailable +[phone] Nydia Murphy [facility] Unavailable [phone] Encounter Details Date Type Department Care Team (Late st Contact Info) Description 11/12/2004 [facility]'s [address] [place] [address] Jose A Levi MD NO INFO AVAILABLE DELIVERY PATHWAY Social History Tobacco Use Types Packs/Day Years Used Date Smoking Tobacco: Never Passive Smoke Exposure: Never Smokeless Tobacco: Never Alcohol Use Standard Drinks/Week Comments No 0 (1 standard drink = 0.6 oz pur e alcohol) Comments No Sex and Gender Information Value Date Recorded Sex Assigned at Not on file Legal Sex Female 4:25 AM AFTER SCHOOL PROGRAM DIRECTOR Gender Identity Not on file Sexual Orientation Straight 09/24/2021 4: 08 PM AFTER SCHOOL PROGRAM DIRECTOR 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 Not on file Not on file Not on file Not on file documented as of this encounter Plan of Treatment Not on file documented as of this encounter Visit Diagnoses Diagnosis DELIVERY PATHWAY- Primary documented in this encounter Additional Health Concerns Infection Onset Date Last Indicated Resolved Time Rule Out COVID-06/19/2023 06/19/2023 06/19/2023 10:19 PM CDT Rule Out COVID-09/29/2023 09/29/2023 09/29/2023 3:47 PM AFTER SCHOOL PROGRAM DIRECTOR documented as of this encounter Care Teams Operation Specialist Relationship Specialty Start Date End Date Nik Dumont MD [address] [address] PCP - General 07/18/02 01/24/19 Rajani Rodriguez APRN SYSTEMS ENGINEERING MANAGER [address] [place] [address] [place] [address] PCP - Assigned PCP 04/25/18 10/30/18 Mamadou Jiang PA-C 93994 [place] [address] PCP - Assigned PCP 10/31/18 11/30/18 Pauline Augustine APRN SYSTEMS ENGINEERING MANAGER [address] [place] [address] PCP - General Nurse Practitioner - Family 01/25/19 Rajani Rodriguez APRN SYSTEMS ENGINEERING MANAGER [address] [place] [address] [place] [address] Assigned PCP 04/25/18 10/30/18 Mamadou Jiang PA-C [address] [place] [address] Assigned PCP 10/31/18 01/22/19 Pauline Augustine APRN SYSTEMS ENGINEERING MANAGER [address] [place] [address] Assigned PCP 01/23/19 03/24/20 Mamadou Jiang PA-C 179[address] [place] [address] Assigned PCP 03/25/20 08/25/20 Pauline Augustine APRN SYSTEMS ENGINEERING MANAGER [address] [place] [address] Assigned PCP 08/26/20 07/13/21 Pauline Augustine APRN SYSTEMS ENGINEERING MANAGER [address] [place] [address] Assigned PCP 07/14/21 Kendrick Landry MD 9 [place] [address] Critical Care 06/27/22 Kendrick Landry MD 9 [place] [address] Critical Care 06/27/22 Nydia Murphy, [facility] Community Health Worker Primary Care - CC 10/04/2410/06/24 documented as of this encounter
--- OUTSIDE RECORDS SUMMARY | 2024-12-02 20:12 | XMS_ITS | Encounter Summary ---
Author Organization [facility] Address [address] [place] [address] Care Team Providers Care Fiscal Specialist Name Role Phone Nik Dumont MD Primary Care Provider + [phone] Rajani Rodriguez APRN TEACHER ADULT EDUCATION Unavailable Mamadou Jiang-C Unavailable +[phone] Rajani Rodriguez APRN TEACHER ADULT EDUCATION Unavailable Mamadou Jiang-C Unavailable +[phone] Pauline Augustine APRN TEACHER ADULT EDUCATION Unavailable +[phone] Pauline Augustine APRN TEACHER ADULT EDUCATION Primary Care Provider + Mamadou Jiang PA-C Unavailable +[phone] Pauline Augustine APRN TEACHER ADULT EDUCATION Unavailable + [phone] Pauline Augustine APRN TEACHER ADULT EDUCATION Unavailable +[phone] Kendrick Landry MD Unavailable +[phone] Kendrick Landry MD Unavailable +[phone] Nydia Murphy [facility] Unavailable [phone] Reason for Visit * Reason Onset Date Comments Pt. Information/instruction 04/03/2017 Upda te - increased sweating Encounter Details Date Type Department Care Team (Late st Contact Info) Description 04/03/2017 [facility] [place] [facility] [address] [place] [address] Rajani Rodriguez APRN CNP [address] [facility] [place] [address] Pt. Information/instruct ion (Update - incr... 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 Thanks. Julia. [place] agriculture worker Nurse documented in this encounter Plan of Treatment Not on file documented as of this encounter Visit Diagnoses Diagnosis Generalized hyperhidrosis- Primary documented in this encounter Additional Health Concerns Infection Onset Date Last Indicated Resolved Time Rule Out COVID-19 06/19/2023 06/19/2023 06/19/2023 10:19 PM CDT Rule Out COVID-19 09/29/2023 09/29/2023 09/29/2023 3:47 PM ADMINISTRATIVE SERVICES ASSISTANT Assessment Noted Time PHQ-9 Depression Total Score: 4 04/04/20 17 7:28 AM CDT documented as of this encounter Care Teams Fiscal Specialist Relationship Specialty Start Date End Date Nik Dumont MD [address] [address] PCP - General 07/18/02 01/24/19 Rajani Rodriguez APRN TEACHER ADULT EDUCATION [address] [facility] [place] [address] PCP - Assigned PCP 04/25/18 10/30/18 Mamadou Jiang PA-C [address] [place] [address] PCP - Assigned PCP 10/31/18 11/30/18 Pauline Augustine APRN TEACHER ADULT EDUCATION [address] [place] [address] PCP - General Nurse Practitioner - Family 01/25/19 Rajani Rodriguez APRN TEACHER ADULT EDUCATION [facility] [facility] [place] [address] Assigned PCP 04/25/18 10/30/18 Mamadou Jiang PA-C [address] [place] [address] Assigned PCP 10/31/18 01/22/19 Pauline Augustine APRN TEACHER ADULT EDUCATION [address] [place] [address] Assigned PCP 01/23/19 03/24/20 Mamadou Jiang PA-C [address] [place] [address] Assigned PCP 03/25/20 08/25/20 Pauline Augustine APRN TEACHER ADULT EDUCATION [address] [place] [address] Assigned PCP 08/26/20 07/13/21 Pauline Augustine APRN TEACHER ADULT EDUCATION [address] [place] [address] Assigned PCP 07/14/21 Kendrick Landry MD 909 [place], [place] 1827[address] Critical Care 06/27/22 Kendrick Landry MD [address]09 [place] [address] Critical Care 06/27/22 Nydia Murphy, [facility] Community Health Worker Primary Care - CC 10/04/2410/06/24 documented as of this encounter
--- OUTSIDE RECORDS SUMMARY | 2024-12-02 20:12 | XMS_ITS | Encounter Summary ---
Author Organization [facility] Address [address] [place] [address] Care Team Providers Care Property Utilization Manager Name Role Phone Pauline Augustine APRN PILE FABRIC KNITTER Primary Care Provider + Pauline Augustine APRN PILE FABRIC KNITTER Unavailable [phone] Kendrick Landry MD Unavailable +[phone] Kendrick Landry MD Unavailable +[phone] Nydia Murphy CH[facility] Unavailable [phone] Encounter Details Date Type Department Care Team (Late st Contact Info) Description 08/26/2022 [facility] Medical Advice [address] [address] Rossana Pulido RN Social History Tobacco Use Types Packs/Day Years Used Date Smoking Tobacco: Never Smokeless Tobacco: Never Alcohol Use Standard Drinks/Week Comments No 0 (1 standard drink = 0.6 oz pur e alcohol) PHQ-2 Answer Date Recorded PHQ-2 Score 2 08/26/2022 Comments No Sex and Gender Information Value Date Recorded Sex Assigned at Not on file Legal Sex Female 4:25 AM AERIAL ERECTOR Gender Identity Not on file Sexual Orientation Straight 09/24/2021 4: 08 PM AERIAL ERECTOR Occupation Industry Job Start Date Job End [...] COVID-19 09/29/2023 09/29/2023 09/29/2023 3:47 PM AERIAL ERECTOR Assessment Noted Time PHQ-9 Depression Total Score: 4 08/26/20 22 3:41 PM AERIAL ERECTOR documented as of this encounter Care Teams Property Utilization Manager Relationship Specialty Start Date End Date Pauline Augustine APRN PILE FABRIC KNITTER [address] [place] [address] PCP - General Nurse Practitioner - Family 01/25/19 Pauline Augustine APRN PILE FABRIC KNITTER [address] [place] [address] Assigned PCP 07/14/21 Kendrick Landry MD [address] [place] [address] 162515 Critical Care 06/27/22 Kednrick Landry MD [address] [place] [address] 688135 Critical Care 06/27/22 Nydia Murphy, [facility] Community Health Worker Primary Care - CC 10/04/2410/06/24 documented as of this encounter
--- OUTSIDE RECORDS SUMMARY | 2024-12-02 20:12 | XMS_ITS | Encounter Summary ---
Author Organization [place] Address [address] [place] [address] Care Team Providers Care Manufacturing Maintenance Technician Name Role Phone Nik Dumont MD Primary Care Provider + [phone] ShawnRajani Rocha APRN MORTGAGE PROFESSIONAL Unavailable Mamadou Jiang PA-C Unavailable + Shawn-Rajani Quintanilla APRN MORTGAGE PROFESSIONAL Unavailable Mamadou Jiang PA-C Unavailable + Pauline Augustine SCHOOL COUNSELOR MORTGAGE PROFESSIONAL Unavailable + Pauline Augustine SCHOOL COUNSELOR MORTGAGE PROFESSIONAL Primary Care Provider + Mamadou Jiang PA-C Unavailable + Pauline Augustine APRN MORTGAGE PROFESSIONAL Unavailable +00 Pauline Augustine APRN MORTGAGE PROFESSIONAL Unavailable +00 Kendrick Landry MD Unavailable +[phone] Kendrick Landry MD Unavailable +[phone] Nydia Murphy [facility] Unavailable +[phone] Encounter Details Date Type Department Care Team (Late st Contact Info) Description 02/07/2013 [facility]'s [address] [place] [address] Case Ibarra MD RETIRED Social History Tobacco Use Types Packs/Day Years Used Date Smoking Tobacco: Never Smokeless Tobacco: Never Alcohol Use Standard Drinks/Week Comments No 0 (1 standard drink = 0.6 oz pur e alcohol) Comments Yes Sex and Gender Information Value Date Recorded Sex Assigned at Not on file Legal Sex Female 4:25 AM FINANCE CLERK Gender Identity Not on file Sexual Orientation Straight 09/24/2021 4: 08 PM FINANCE CLERK Occupation Industry Job Start Date Job End [...] Rule Out COVID-09/29/2023 09/29/2023 09/29/2023 3:47 PM FINANCE CLERK documented as of this encounter Care Teams Manufacturing Maintenance Technician Relationship Specialty Start Date End Date Nik Dumont MD [address] [address] PCP - General 07/18/02 01/24/19 Rajani Rodriguez APRN MORTGAGE PROFESSIONAL [address] [place] [address] ROB[place] CARVER 91571 PCP - Assigned PCP 04/25/18 10/30/18 Mamadou Jiang PA-C 62732 [place] [address] PCP - Assigned PCP 10/31/18 11/30/18 Pauline Augustine APRN MORTGAGE PROFESSIONAL 97993 [place] [address] PCP - General Nurse Practitioner - Family 01/25/19 Rajani Rodriguez APRN MORTGAGE PROFESSIONAL [address] [place] [address] ROB[place] CARVER 49[address] Assigned PCP 04/25/18 10/30/18 Mamadou Jiang PA-C 53869 [place], [place] 1698968 Assigned PCP 10/31/18 01/22/19 Pauline Augustine APRN MORTGAGE PROFESSIONAL [address]43 [place], [place] 9824768 Assigned PCP 01/23/19 03/24/20 Mamadou Jiang PA-C [address]2318 [place] [address] Assigned PCP 03/25/20 08/25/20 Pauline Augustine APRN MORTGAGE PROFESSIONAL [address] [place], [place] 4100668 Assigned PCP 08/26/20 07/13/21 Pauline Augustine APRN MORTGAGE PROFESSIONAL [address] [place], [place] 6018068 Assigned PCP 07/14/21 Kendrick Landry MD 9 [place] [address] Critical Care 06/27/22 Kendrick Landry MD [address] [place] [address] Critical Care 06/27/22 Nydia Murphy, W Community Health Worker Primary Care - CC 10/04/2410/06/24 documented as of this encounter
--- OUTSIDE RECORDS SUMMARY | 2024-12-02 20:12 | XMS_ITS | Encounter Summary ---
Author Organization [place] Address [address] [place] [address] Care Team Providers Care Charge Auditor Name Role Phone Nik Dumont MD Primary Care Provider + [phone] ShawnRajani Rocha APRN COPYING MACHINE MECHANIC Unavailable Mamadou Jiang PA-C Unavailable + Shawn-Rajani Quintanilla APRN COPYING MACHINE MECHANIC Unavailable Mamadou Jiang PA-C Unavailable + Pauline Augustine MERCHANDISING MANAGER COPYING MACHINE MECHANIC Unavailable + Pauline Augustine MERCHANDISING MANAGER COPYING MACHINE MECHANIC Primary Care Provider + Mamadou Jiang PA-C Unavailable + Pauline Augustine APRN COPYING MACHINE MECHANIC Unavailable +00 Pauline Augustine APRN COPYING MACHINE MECHANIC Unavailable + Kendrick Landry MD Unavailable +[phone] Kendrick Landry MD Unavailable +[phone] Nydia Murphy [facility] Unavailable +[phone] Encounter Details Date Type Department Care Team (Late st Contact Info) Description 05/28/2010 [facility] [place] [facility]'s [address] [place] [address] Case Ibarra MD RETIRED Social History Tobacco Use Types Packs/Day Years Used Date Smoking Tobacco: Never Alcohol Use Standard Drinks/Week Comments No 0 (1 standard drink = 0.6 oz pur e alcohol) Comments No Sex and Gender Information Value Date Recorded Sex Assigned at Not on file Legal Sex Female 4:25 AM MEN'S BASKETBALL COACH Gender Identity Not on file Sexual Orientation Straight 09/24/2021 4: 08 PM MEN'S BASKETBALL COACH Occupation Industry Job Start Date Job End [...] Out COVID-19 09/29/2023 09/29/2023 09/29/2023 3:47 PM MEN'S BASKETBALL COACH documented as of this encounter Care Teams Charge Auditor Relationship Specialty Start Date End Date Nik Dumont MD [address] [address] PCP - General 07/18/02 01/24/19 Rajani Rodriguez APRN COPYING MACHINE MECHANIC [address] [place] [address] ROBERT CARVER [address] PCP - Assigned PCP 04/25/18 10/30/18 Mamadou Jiang PA-C 82276 [place] [address] PCP - Assigned PCP 10/31/18 11/30/18 Pauline Augustine APRN COPYING MACHINE MECHANIC 63583 [place] [address] PCP - General Nurse Practitioner - Family 01/25/19 Rajani Rodriguez APRN COPYING MACHINE MECHANIC [address] [place] [address] ROB[place] CARVER 94[address] Assigned PCP 04/25/18 10/30/18 Mamadou Jiang PA-C 55475 [place] [address] Assigned PCP 10/31/18 01/22/19 Pauline Augustine APRN COPYING MACHINE MECHANIC [address] [place] [address] Assigned PCP 01/23/19 03/24/20 Mamadou Jiang PA-C 33460 [place] [address] Assigned PCP 03/25/20 08/25/20 Pauline Augustine APRN COPYING MACHINE MECHANIC [address] [place], [place] 5800968 Assigned PCP 08/26/20 07/13/21 Pauline Augustine APRN COPYING MACHINE MECHANIC [address]783 [place], [place] 9594368 Assigned PCP 07/14/21 Kendrick Landry MD 9 [place] [address] Critical Care 06/27/22 Kendrick Landry MD [address] [place] [address] Critical Care 06/27/22 Nydia Murphy, [facility] Community Health Worker Primary Care - CC 10/04/2410/06/24 documented as of this encounter
--- OUTSIDE RECORDS SUMMARY | 2024-12-02 20:12 | XMS_ITS | Encounter Summary ---
Author Organization [place] Address [address] [place] [address] Care Team Providers Care Spine Supervisor Name Role Phone Nik Dumont MD Primary Care Provider + [phone] Rajani Rodriguez PTA MIXED LIVESTOCK FARMER Unavailable Mamadou Jiang PA-C Unavailable + Rajani Rodriguez APRN MIXED LIVESTOCK FARMER Unavailable Mamadou Jiang PA-C Unavailable + Pauline Augustine PTA MIXED LIVESTOCK FARMER Unavailable + Pauline Augustine PTA MIXED LIVESTOCK FARMER Primary Care Provider + Mamadou Jiang PA-C Unavailable + Pauline Augustine PTA MIXED LIVESTOCK FARMER Unavailable +00 Pauline Augustine PTA MIXED LIVESTOCK FARMER Unavailable + Kendrick Landry MD Unavailable +[phone] Kendrick Landry MD Unavailable +[phone] Nydia Murphy [facility] Unavailable +[phone] Reason for Visit * Reason Onset Date Comments Sinus Problem 06/23/2007 Encounter Details Date Type Department Care Team (Late st Contact Info) Description 06/23/2007 [facility] [address] [phone] Nik Dumont MD [address] [id number] Sinus Problem Social History Tobacco Use Types Packs/Day Years Used Date Smoking Tobacco: Never Alcohol Use Standard Drinks/Week Comments No 0 (1 standard drink = 0.6 oz pur e alcohol) Comments No Sex and Gender Information Value Date Recorded Sex Assigned at Not on file Legal Sex Female 4:25 AM CENTRAL SUPPLY TECHNICIAN SUPERVISOR Gender Identity Not on file Sexual Orientation Straight 09/24/2021 4: 08 PM CENTRAL SUPPLY TECHNICIAN SUPERVISOR documented as of this encounter Plan of Treatment Not on file documented as of this encounter Visit Diagnoses Not on filedocumented in this encounter Additional Health Concerns Infection Onset Date Last Indicated Resolved Time Rule Out COVID-06/19/2023 06/19/2023 06/19/2023 10:19 PM CDT Rule Out COVID-09/29/2023 09/29/2023 09/29/2023 3:47 PM CENTRAL SUPPLY TECHNICIAN SUPERVISOR documented as of this encounter Care Teams Spine Supervisor Relationship Specialty Start Date End Date Nik Dumont MD [address] [place] [address] PCP - General 07/18/02 01/24/19 Rajani Rodriguez APRN MIXED LIVESTOCK FARMER [address] [place] [address] ROB[place] CARVER [address]8592 PCP - Assigned PCP 04/25/18 10/30/18 Mamadou Jiang PA-C 78359 [place] [address] PCP - Assigned PCP 10/31/18 11/30/18 Pauline Augustine APRN MIXED LIVESTOCK FARMER 26745 [place] [address] PCP - General Nurse Practitioner - Family 01/25/19 Rajani Rodriguez APRN MIXED LIVESTOCK FARMER [address] [place] [address] ROB[place] CARVER 38[address] Assigned PCP 04/25/18 10/30/18 Mamadou Jiang PA-C 28327 [place] [address] Assigned PCP 10/31/18 01/22/19 Pauline Augutsine APRN MIXED LIVESTOCK FARMER [address] [place] [address] Assigned PCP 01/23/19 03/24/20 Mamadou Jiang PA-C 95939 [place] [address] Assigned PCP 03/25/20 08/25/20 Pauline Augustine APRN MIXED LIVESTOCK FARMER [address] [place] [address] Assigned PCP 08/26/20 07/13/21 Pauline Augustine APRN MIXED LIVESTOCK FARMER [address] [place] [address] Assigned PCP 07/14/21 Kendrick Landry MD 9 [place] [address] Critical Care 06/27/22 Kendrick Landry MD 9 [place] [address] Critical Care 06/27/22 Nydia Murphy, [facility] Community Health Worker Primary Care - CC 10/04/2410/06/24 documented as of this encounter
--- OUTSIDE RECORDS SUMMARY | 2024-12-02 20:12 | XMS_ITS | Encounter Summary ---
Author Organization [place] Address [address] [place] [address] Care Team Providers Care Scale Manager Name Role Phone Nik Dumont MD Primary Care Provider + [phone] Rajani Rodriguez APRN AUTOMOBILE REPOSSESSOR Unavailable Mamadou Jiang-C Unavailable +[phone] Rajani Rodriguez APRN AUTOMOBILE REPOSSESSOR Unavailable Mamadou Jiang-C Unavailable +[phone] Pauline Augustine PROJECT HIRE AUTOMOBILE REPOSSESSOR Unavailable + [phone] Pauline Augustine PROJECT HIRE AUTOMOBILE REPOSSESSOR Primary Care Provider + Mamadou Jiang PA-C Unavailable + Pauline Augustine APRN AUTOMOBILE REPOSSESSOR Unavailable +00 Pauline Augustine APRN AUTOMOBILE REPOSSESSOR Unavailable + Kendrick Landry MD Unavailable +[phone] Kendrick Landry MD Unavailable +[phone] Nydia Murphy [facility] Unavailable +[phone] Encounter Details Date Type Department Care Team (Late st Contact Info) Description 05/31/2010 [facility] [place] [facility] Advice [address] [address] Conner Choudhary Social History Tobacco Use Types Packs/Day Years Used Date Smoking Tobacco: Never Alcohol Use Standard Drinks/Week Comments No 0 (1 standard drink = 0.6 oz pur e alcohol) Comments No Sex and Gender Information Value Date Recorded Sex Assigned at Not on file Legal Sex Female 4:25 AM MEAT DRESSER Gender Identity Not on file Sexual Orientation Straight 09/24/2021 4: 08 PM MEAT DRESSER Occupation Industry Job Start Date Job End [...] Out COVID-19 09/29/2023 09/29/2023 09/29/2023 3:47 PM MEAT DRESSER documented as of this encounter Care Teams Scale Manager Relationship Specialty Start Date End Date Nik Dumont MD [address] [address] PCP - General 07/18/02 01/24/19 Rajani Rodriguez APRN AUTOMOBILE REPOSSESSOR [address] [place] [address] ROB[place] CARVER 42258 PCP - Assigned PCP 04/25/18 10/30/18 Mamadou Jiang PA-C [address] [place] [address] PCP - Assigned PCP 10/31/18 11/30/18 Pauline Augustine APRN AUTOMOBILE REPOSSESSOR [address] [place] [address] PCP - General Nurse Practitioner - Family 01/25/19 Rajani Rodriguez APRN AUTOMOBILE REPOSSESSOR [address] [place] [address] ROB[place] CARVER 35[address] Assigned PCP 04/25/18 10/30/18 Mamadou Jiang PA-C [address] [place] [address] Assigned PCP 10/31/18 01/22/19 Pauline Augustine APRN AUTOMOBILE REPOSSESSOR [address] [place] [address] Assigned PCP 01/23/19 03/24/20 Mamadou Jiang PA-C 39843 [place] [address] Assigned PCP 03/25/20 08/25/20 Pauline Augustine APRN AUTOMOBILE REPOSSESSOR [address] [place] [address] Assigned PCP 08/26/20 07/13/21 Pauline Augustine APRN AUTOMOBILE REPOSSESSOR [address] [place] [address] Assigned PCP 07/14/21 Kendrick Landry MD [address] [place] [address] Critical Care 06/27/22 Kendrick Landry MD [address] [place] [address] Critical Care 06/27/22 Nydia Murphy, [facility] Community Health Worker Primary Care - CC 10/04/2410/06/24 documented as of this encounter
--- OUTSIDE RECORDS SUMMARY | 2024-12-02 20:12 | XMS_ITS | Encounter Summary ---
Author Organization [facility] Address [address] [place] [address] Care Team Providers Care Middle School History Teacher Name Role Phone Nik Dumont MD Primary Care Provider + [phone] Rajani Rodriguez APRN CARE PARTNER Unavailable Mamadou Jiang-C Unavailable +[phone] Rajani Rodriguez APRN CARE PARTNER Unavailable Mamadou Jiang-C Unavailable +[phone] Pauline Augustine WIRE BRUSH OPERATOR CARE PARTNER Unavailable + [phone] Pauline Augustine WIRE BRUSH OPERATOR CARE PARTNER Primary Care Provider + Mamadou Jiang PA-C Unavailable + Pauline Augustine APRN CARE PARTNER Unavailable +00 Pauline Augustine APRN CARE PARTNER Unavailable + Kendrick Landry MD Unavailable +[phone] Kendrick Landry MD Unavailable +[phone] Nydia Murphy [facility] Unavailable +[phone] Encounter Details Date Type Department Care Team (Late st Contact Info) Description 05/04/2017 [facility] [address] [place] [address] Gina Becker MA Social History Tobacco Use Types Packs/Day Years Used Date Smoking Tobacco: Never Smokeless Tobacco: Never Alcohol Use Standard Drinks/Week Comments No 0 (1 standard drink = 0.6 oz pur e alcohol) Comments No Sex and Gender Information Value Date Recorded Sex Assigned at Not on file Legal Sex Female 4:25 AM MANAGER RESPIRATORY Gender Identity Not on file Sexual Orientation Straight 09/24/2021 4: 08 PM MANAGER RESPIRATORY Occupation Industry Job Start Date Job End [...] Out COVID-19 09/29/2023 09/29/2023 09/29/2023 3:47 PM MANAGER RESPIRATORY Assessment Noted Time PHQ-9 Depression Total Score: 4 04/04/20 17 7:28 AM CDT documented as of this encounter Care Teams Middle School History Teacher Relationship Specialty Start Date End Date Nik Dumont MD [address] [address] PCP - General 07/18/02 01/24/19 Rajani Rodriguez APRN CARE PARTNER [address] [place] [address] ROB[place] CARVER [address] PCP - Assigned PCP 04/25/18 10/30/18 Mamadou Jiang PA-C 74958 [place] [address] PCP - Assigned PCP 10/31/18 11/30/18 Pauline Augustine APRN CARE PARTNER 45116 [place] [address] PCP - General Nurse Practitioner - Family 01/25/19 Rajani Rodriguez APRN CARE PARTNER [address] [place] [address] ROB[place] CARVER [address] Assigned PCP 04/25/18 10/30/18 Mamadou Jiang PA-C 58827 [place] [address] Assigned PCP 10/31/18 01/22/19 Pauline Augustine APRN CARE PARTNER [address] [place] [address] Assigned PCP 01/23/19 03/24/20 Mamadou Jiang PA-C 63458 [place] [address] Assigned PCP 03/25/20 08/25/20 Pauline Augustine APRN CARE PARTNER [address] [place] [address] Assigned PCP 08/26/20 07/13/21 Pauline Augustine APRN CARE PARTNER [address] [place] [address] Assigned PCP 07/14/21 Kendrick Landry MD [address] [place] [address] Critical Care 06/27/22 Kendrick Landry MD [address] [place] [address] Critical Care 06/27/22 Nydia Murphy, [facility] Community Health Worker Primary Care - CC 10/04/2410/06/24 documented as of this encounter
--- OUTSIDE RECORDS SUMMARY | 2024-12-02 20:12 | XMS_ITS | Encounter Summary ---
Author Organization [place] Address [address] [place] [address] Care Team Providers Care Assembly Department Supervisor Name Role Phone Nik Dumont MD Primary Care Provider + [phone] ShawnRajani Rocha APRN TIMBER HAND Unavailable Mamadou Jiang PA-C Unavailable + Shawn-Rajani Quintanilla APRN TIMBER HAND Unavailable Mamadou Jiang PA-C Unavailable + Pauline Augustine TELECOMMUNICATIONS NETWORK ENGINEER TIMBER HAND Unavailable + Pauline Augustine TELECOMMUNICATIONS NETWORK ENGINEER TIMBER HAND Primary Care Provider + Mamadou Jiang PA-C Unavailable + Pauline Augustine APRN TIMBER HAND Unavailable +00 Pauline Augustine APRN TIMBER HAND Unavailable + Kendrick Landry MD Unavailable +[phone] Kendrick Landry MD Unavailable +[phone] Nydia Murphy [facility] Unavailable +[phone] Encounter Details Date Type Department Care Team (Late st Contact Info) Description 02/15/2013 [facility] [place] [facility]'s [address] [place] [address] Case Ibarra MD RETIRED Social History Tobacco Use Types Packs/Day Years Used Date Smoking Tobacco: Never Smokeless Tobacco: Never Alcohol Use Standard Drinks/Week Comments No 0 (1 standard drink = 0.6 oz pur e alcohol) Comments Yes Sex and Gender Information Value Date Recorded Sex Assigned at Not on file Legal Sex Female 4:25 AM BAR EXAMINER Gender Identity Not on file Sexual Orientation Straight 09/24/2021 4: 08 PM BAR EXAMINER Occupation Industry Job Start Date Job End [...] Rule Out COVID-09/29/2023 09/29/2023 09/29/2023 3:47 PM BAR EXAMINER documented as of this encounter Care Teams Assembly Department Supervisor Relationship Specialty Start Date End Date Nik Dumont MD [address] [address] PCP - General 07/18/02 01/24/19 Rajani Rodriguez APRN TIMBER HAND [address] [place] [address] ROB[place] CARVER [address]12[address] PCP - Assigned PCP 04/25/18 10/30/18 Mamadou Jiang PA-C 13998 [place] [address] PCP - Assigned PCP 10/31/18 11/30/18 Pauline Augustine APRN TIMBER HAND 64079 [place] [address] PCP - General Nurse Practitioner - Family 01/25/19 Rajani Rodriguez APRN TIMBER HAND [address] [place] [address] ROBERT CARVER 401[address] Assigned PCP 04/25/18 10/30/18 Mamadou Jiang PA-C 91441 [place], [place] 8899968 Assigned PCP 10/31/18 01/22/19 Pauline Augustine APRN TIMBER HAND 12260 [place], [place] 9819368 Assigned PCP 01/23/19 03/24/20 Mamadou Jiang PA-C 23244 [place] [address] Assigned PCP 03/25/20 08/25/20 Pauline Augustine APRN TIMBER HAND 21723 [place], [place] 3717668 Assigned PCP 08/26/20 07/13/21 Pauline Augustine APRN TIMBER HAND [address] [place], [place] 0046668 Assigned PCP 07/14/21 Kendrick Landry MD 9 [place] [address] Critical Care 06/27/22 Kendrick Landry MD [address] [place] [address] Critical Care 06/27/22 Nydia Murphy, W Community Health Worker Primary Care - CC 10/04/2410/06/24 documented as of this encounter
--- OUTSIDE RECORDS SUMMARY | 2024-12-02 20:12 | XMS_ITS | Encounter Summary ---
Author Organization [place] Address [address] [place] [address] Care Team Providers Care Resident Care Technician Name Role Phone Nik Dumont MD Primary Care Provider + [phone] Rajani Rodriguez APRN SHOT HOLE SHOOTER Unavailable Mamadou Jiang-C Unavailable +[phone] Rajani Rodriguez APRN SHOT HOLE SHOOTER Unavailable Mamadou Jiang-C Unavailable +[phone] Pauline Augustine MANAGER INVESTMENT BANKING SHOT HOLE SHOOTER Unavailable + [phone] Pauline Augustine MANAGER INVESTMENT BANKING SHOT HOLE SHOOTER Primary Care Provider + Mamadou Jiang PA-C Unavailable + Pauline Augustine APRN SHOT HOLE SHOOTER Unavailable +00 Pauline Augustine APRN SHOT HOLE SHOOTER Unavailable + Kendrick Landry MD Unavailable +[phone] Kenrdick Landry MD Unavailable +[phone] Nydia Murphy [facility] Unavailable +[phone] Encounter Details Date Type Department Care Team (Late st Contact Info) Description 05/27/2010 [facility] [place] [address] [address] Conner Choudhary Social History Tobacco Use Types Packs/Day Years Used Date Smoking Tobacco: Never Alcohol Use Standard Drinks/Week Comments No 0 (1 standard drink = 0.6 oz pur e alcohol) Comments No Sex and Gender Information Value Date Recorded Sex Assigned at Not on file Legal Sex Female 4:25 AM REFINERY OPERATOR HELPER CRUDE UNIT Gender Identity Not on file Sexual Orientation Straight 09/24/2021 4: 08 PM REFINERY OPERATOR HELPER CRUDE UNIT documented as of this encounter Plan of Treatment Not on file documented as of this encounter Visit Diagnoses Not on filedocumented in this encounter Additional Health Concerns Infection Onset Date Last Indicated Resolved Time Rule Out COVID-19 06/19/2023 06/19/2023 06/19/2023 10:19 PM CDT Rule Out COVID-19 09/29/2023 09/29/2023 09/29/2023 3:47 PM REFINERY OPERATOR HELPER CRUDE UNIT documented as of this encounter Care Teams Resident Care Technician Relationship Specialty Start Date End Date Nik Dumont MD [address] [address] PCP - General 07/18/02 01/24/19 Rajani Rodriguez APRN SHOT HOLE SHOOTER [address] [place] [address] ROBERT CARVER 93[address] PCP - Assigned PCP 04/25/18 10/30/18 Mamadou Jiang PA-C 47753 [place] [address] PCP - Assigned PCP 10/31/18 11/30/18 Pauline Augustine APRN SHOT HOLE SHOOTER [address] [place] [address] PCP - General Nurse Practitioner - Family 01/25/19 Rajani Rodriguez APRN SHOT HOLE SHOOTER [address] [place] [address] ROBERT CARVER [address]24[address] Assigned PCP 04/25/18 10/30/18 Mamadou Jiang PA-C 09393 [place] [address] Assigned PCP 10/31/18 01/22/19 Pauline Augustine APRN SHOT HOLE SHOOTER [address] [place] [address] Assigned PCP 01/23/19 03/24/20 Mamadou Jiang PA-C 518[address] [place] [address] Assigned PCP 03/25/20 08/25/20 Pauline Augustine APRN SHOT HOLE SHOOTER [address] [place] [address] Assigned PCP 08/26/20 07/13/21 Pauline Augustine APRN SHOT HOLE SHOOTER [address] [place] [address] Assigned PCP 07/14/21 Kendrick Landry MD [address] [place] [address] Critical Care 06/27/22 Kendrick Landry MD [address] [place] [address] Critical Care 06/27/22 Nydia Murphy, [facility] Community Health Worker Primary Care - CC 10/04/2410/06/24 documented as of this encounter
--- OUTSIDE RECORDS SUMMARY | 2024-12-02 20:12 | XMS_ITS | Encounter Summary ---
Author Organization [facility] Address [address] [place] [address] Care Team Providers Care Newspaper Clipper Name Role Phone Nik Dumont MD Primary Care Provider + [phone] Rajani Rodriguez CORSET MAKER SPECIAL EVENTS FUNDRAISER Unavailable Mamadou Jiang PA-C Unavailable + Shawn-Rajani Quintanilla APRN SPECIAL EVENTS FUNDRAISER Unavailable Mamadou Jiang PA-C Unavailable + Pauline Augustine CORSET MAKER SPECIAL EVENTS FUNDRAISER Unavailable + Pauline Augustine CORSET MAKER SPECIAL EVENTS FUNDRAISER Primary Care Provider + Mamadou Jiang PA-C Unavailable + Pauline Augustine CORSET MAKER SPECIAL EVENTS FUNDRAISER Unavailable +00 Pauline Augustine CORSET MAKER SPECIAL EVENTS FUNDRAISER Unavailable + Kendrick Landry MD Unavailable +[phone] Kendrick Landry MD Unavailable +[phone] Nydia Murphy [facility] Unavailable +[phone] Encounter Details Date Type Department Care Team (Late st Contact Info) Description 06/27/2014 [facility] [address] [address] Nik Dumont MD [address] [address] Social History Tobacco Use Types Packs/Day Years Used Date Smoking Tobacco: Never Smokeless Tobacco: Never Alcohol Use Standard Drinks/Week Comments No 0 (1 standard drink = 0.6 oz pur e alcohol) Comments No Sex and Gender Information Value Date Recorded Sex Assigned at Not on file Legal Sex Female 4:25 AM MANNEQUIN MAKER Gender Identity Not on file Sexual Orientation Straight 09/24/2021 4: 08 PM MANNEQUIN MAKER Occupation Industry Job Start Date Job End [...] Out COVID-19 09/29/2023 09/29/2023 09/29/2023 3:47 PM MANNEQUIN MAKER documented as of this encounter Care Teams Newspaper Clipper Relationship Specialty Start Date End Date Nik Dumont MD [address] [address] PCP - General 07/18/02 01/24/19 Rajani Rodriguez APRN SPECIAL EVENTS FUNDRAISER [address] [place] [address] [place] [address] PCP - Assigned PCP 04/25/18 10/30/18 Mamadou Jiang PA-C [address] [place] [address] PCP - Assigned PCP 10/31/18 11/30/18 Pauline Augustine APRN SPECIAL EVENTS FUNDRAISER [address] [place] [address] PCP - General Nurse Practitioner - Family 01/25/19 Rajani Rodriguez APRN SPECIAL EVENTS FUNDRAISER [address] [facility] [place] [address] Assigned PCP 04/25/18 10/30/18 Mamadou Jiang PA-C [address] [place] [address] Assigned PCP 10/31/18 01/22/19 Pauline Augustine APRN SPECIAL EVENTS FUNDRAISER [address] [place] [address] Assigned PCP 01/23/19 03/24/20 Mamadou Jiang PA-C [address] [place] [address] Assigned PCP 03/25/20 08/25/20 Pauline Augustine APRN SPECIAL EVENTS FUNDRAISER [address] [place] [address] Assigned PCP 08/26/20 07/13/21 Pauline Augustine APRN SPECIAL EVENTS FUNDRAISER [address] [place] [address] Assigned PCP 07/14/21 Kendrick Landry MD 9 [place] [address] Critical Care 06/27/22 Kendrick Landry MD [address] [place] [address] Critical Care 06/27/22 Nydia Murphy, [facility] Community Health Worker Primary Care - CC 10/04/2410/06/24 documented as of this encounter
--- OUTSIDE RECORDS SUMMARY | 2024-12-02 20:12 | XMS_ITS | Encounter Summary ---
Author Organization [facility] Address [address] [place] [address] Care Team Providers Care Catalyst Impregnator Name Role Phone Nik Dumont MD Primary Care Provider + [phone] ShawnRajani Rocha PACKAGE WRAPPER GAMEMASTER Unavailable Mamadou Jiang PA-C Unavailable + Shawn-Rajani Quintanilla PACKAGE WRAPPER GAMEMASTER Unavailable Mamadou Jiang PA-C Unavailable + Pauline Augustine PACKAGE WRAPPER GAMEMASTER Unavailable + Pauline Augustine PACKAGE WRAPPER GAMEMASTER Primary Care Provider + Mamadou Jiang PA-C Unavailable +00 Pauline Augustine PACKAGE WRAPPER GAMEMASTER Unavailable +00 Pauline Augustine PACKAGE WRAPPER GAMEMASTER Unavailable +00 Kendrick Landry MD Unavailable +[phone] Kendrick Landry MD Unavailable +[phone] Nydia Murphy [facility] Unavailable +[phone] Reason for Visit * Reason Onset Date Comments MyChart Communication 05/30/2011 Encounter Details Date Type Department Care Team (Latest Contact Info) Description 05/30/2011 [facility] Medical Advice [facility] [address] [place] [address] Case Ibarra MD RETIRED MyChart Communication Social History Tobacco Use Types Packs/Day Years Used Date Smoking Tobacco: Never Smokeless Tobacco: Never Alcohol Use Standard Drinks/Week Comments No 0 (1 standard drink = 0.6 oz pur e alcohol) Comments No Sex and Gender Information Value Date Recorded Sex Assigned at Not on file Legal Sex Female 4:25 AM HISTOLOGY TECHNOLOGIST Gender Identity Not on file Sexual Orientation Straight 09/24/2021 4: 08 PM HISTOLOGY TECHNOLOGIST Occupation Industry Job Start Date Job End Date Not on file Not on file Not on file Not on file documented as of this encounter Miscellaneous Notes * Telephone Encounter - Claudia Torres - 05/30/2011 10:01 AM CDT FYI, see below pt message. Claudia Torres RN documented in this encounter Plan of Treatment Not on file documented as of this encounter Visit Diagnoses Not on filedocumented in this encounter Additional Health Concerns Infection Onset Date Last Indicated Resolved Time Rule Out COVID-19 06/19/2023 06/19/2023 06/19/2023 10:19 PM CDT Rule Out COVID-19 09/29/2023 09/29/2023 09/29/2023 3:47 PM HISTOLOGY TECHNOLOGIST documented as of this encounter Care Teams Catalyst Impregnator Relationship Specialty Start Date End Date Nik Dumont MD [address] [address] PCP - General 07/18/02 01/24/19 Rajani Rodriguez APRN GAMEMASTER [facility] [facility] [place] [address] PCP - Assigned PCP 04/25/18 10/30/18 Mamadou Jiang PA-C [address] [place] [address] PCP - Assigned PCP 10/31/18 11/30/18 Pauline Augustine APRN GAMEMASTER [address] [place] [address] PCP - General Nurse Practitioner - Family 01/25/19 Rajani Rodriguez APRN GAMEMASTER [address] [facility] [address] Assigned PCP 04/25/18 10/30/18 Mamadou Jiang PA-C [address] [place] [address] Assigned PCP 10/31/18 01/22/19 Pauline Augustine APRN GAMEMASTER [address] [place] [address] Assigned PCP 01/23/19 03/24/20 Mamadou Jiang PA-C [address] [place] [address] Assigned PCP 03/25/20 08/25/20 Pauline Augustine APRN GAMEMASTER [address] [place] [address] Assigned PCP 08/26/20 07/13/21 Pauline Augustine APRN GAMEMASTER [address] [place] [address] Assigned PCP 07/14/21 Kendrick Landry MD [address] [place] [address] Critical Care 06/27/22 Kendrick Landry MD [address] [place] [address] Critical Care 06/27/22 Nydia Murphy, W Community Health Worker Primary Care - CC 10/04/2410/06/24 documented as of this encounter
--- OUTSIDE RECORDS SUMMARY | 2024-12-02 20:12 | XMS_ITS | Encounter Summary ---
Author Organization [facility] Address [address] [place] [address] Care Team Providers Care Anatomy Professor Name Role Phone Nik Dumont MD Primary Care Provider + [phone] Rajani Rodriguez APRN NUTRITION CLUB AMBASSADOR Unavailable Mamadou Jiang-C Unavailable +[phone] Rajani Rodriguez APRN NUTRITION CLUB AMBASSADOR Unavailable Mamadou JiangC Unavailable +[phone] Pauline Augustine APRN NUTRITION CLUB AMBASSADOR Unavailable [phone] Pauline Augustine APRN NUTRITION CLUB AMBASSADOR Primary Care Provider + Mamadou Jiang-C Unavailable +[phone] Pauline Augustine APRN NUTRITION CLUB AMBASSADOR Unavailable +00 Pauline Augustine APRN NUTRITION CLUB AMBASSADOR Unavailable +[phone] Kendrick Landry MD Unavailable +[phone] Kendrick Landry MD Unavailable +[phone] Nydia Murphy [facility] Unavailable +[phone] Reason for Visit * Reason Onset Date Comments Sinus Problem 07/14/2017 still having gre en discharge Encounter Details Date Type Department Care Team (Late st Contact Info) Description 07/14/2017 [facility] [address] [place] [address] Hollie Gonzalez, BOWLING TEACHER NUTRITION CLUB AMBASSADOR [address] [facility] [place] [id number] Sinus Problem (still having green discharge) Social History Tobacco Use Types Packs/Day Years Used Date Smoking Tobacco: Never Smokeless Tobacco: Never Alcohol Use Standard Drinks/Week Comments No 0 (1 standard drink = 0.6 oz pur e alcohol) Comments No Sex and Gender Information Value Date Recorded Sex Assigned at Not on file Legal Sex Female 4:25 AM TELEVISION AGENT Gender Identity Not on file Sexual Orientation Straight 09/24/2021 4: 08 PM TELEVISION AGENT Occupation Industry Job Start Date Job End [...] COVID-19 09/29/2023 09/29/2023 09/29/2023 3:47 PM TELEVISION AGENT Assessment Noted Time PHQ-9 Depression Total Score: 4 04/04/20 17 7:28 AM CDT documented as of this encounter Care Teams Anatomy Professor Relationship Specialty Start Date End Date Nik Dumont MD [address] [place] [address] PCP - General 07/18/02 01/24/19 Rajani Rodriguez APRN NUTRITION CLUB AMBASSADOR [address] [place] [address] [place] [address] PCP - Assigned PCP 04/25/18 10/30/18 Mamadou Jiang PA-C [address] [place] [address] PCP - Assigned PCP 10/31/18 11/30/18 Pauline Augustine APRN NUTRITION CLUB AMBASSADOR [address] [place] [address] PCP - General Nurse Practitioner - Family 01/25/19 Rajani Rodriguez APRN NUTRITION CLUB AMBASSADOR [address] [facility] [place] [address] Assigned PCP 04/25/18 10/30/18 Mamadou Jiang PA-C [address] [place] [address] Assigned PCP 10/31/18 01/22/19 Pauline Augustine APRN NUTRITION CLUB AMBASSADOR [address] [place] [address] Assigned PCP 01/23/19 03/24/20 Mamadou Jiang PA-C [address] [place] [address] Assigned PCP 03/25/20 08/25/20 Pauline Augustine APRN NUTRITION CLUB AMBASSADOR [address] [place] [address] Assigned PCP 08/26/20 07/13/21 Pauline Augustine APRN NUTRITION CLUB AMBASSADOR [address] [place] [address] Assigned PCP 07/14/21 Kendrick Landry MD 909 [place], [place] 747765 Critical Care 06/27/22 Kendrick Landry MD [address] [place], [place] [id number] Critical Care 06/27/22 Nydia Murphy, W Community Health Worker Primary Care - CC 10/04/2410/06/24 documented as of this encounter
--- OUTSIDE RECORDS SUMMARY | 2024-12-02 20:12 | XMS_ITS | Encounter Summary ---
Author Organization [facility] Address [address] [place] [address] Care Team Providers Care Front Desk Agent Name Role Phone Nik Dumont MD Primary Care Provider + [phone] ShawnRajani Rocha APRN OPHTHALMIC MEDICAL TECHNICIAN Unavailable Mamadou Jiang PA-C Unavailable + Shawn-Rajani Quintanilla APRN OPHTHALMIC MEDICAL TECHNICIAN Unavailable Mamadou Jiang PA-C Unavailable + Pauline Augustine BIOINFORMATICIAN OPHTHALMIC MEDICAL TECHNICIAN Unavailable + Pauline Augustine BIOINFORMATICIAN OPHTHALMIC MEDICAL TECHNICIAN Primary Care Provider + Mamadou Jiang PA-C Unavailable + Pauline Augustine APRN OPHTHALMIC MEDICAL TECHNICIAN Unavailable +00 Pauline Augustine APRN OPHTHALMIC MEDICAL TECHNICIAN Unavailable +00 Kendrick Landry MD Unavailable +[phone] Kendrick Landry MD Unavailable +[phone] Nydia Murphy [facility] Unavailable +[phone] Encounter Details Date Type Department Care Team (Late st Contact Info) Description 03/19/2011 [facility] [address] [place] [address] Case Ibarra MD RETIRED OB Delivery Record Social History Tobacco Use Types Packs/Day Years Used Date Smoking Tobacco: Never Passive Smoke Exposure: Never Smokeless Tobacco: Never Alcohol Use Standard Drinks/Week Comments No 0 (1 standard drink = 0.6 oz pur e alcohol) Comments No Sex and Gender Information Value Date Recorded Sex Assigned at Not on file Legal Sex Female 4:25 AM SAFEMAKER Gender Identity Not on file Sexual Orientation Straight 09/24/2021 4: 08 PM SAFEMAKER 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 Not on file Not on file Not on file Not on file documented as of this encounter Plan of Treatment Not on file documented as of this encounter Visit Diagnoses Diagnosis OB Delivery Record- Primary documented in this encounter Additional Health Concerns Infection Onset Date Last Indicated Resolved Time Rule Out COVID-06/19/2023 06/19/2023 06/19/2023 10:19 PM CDT Rule Out COVID-09/29/2023 09/29/2023 09/29/2023 3:47 PM SAFEMAKER documented as of this encounter Care Teams Front Desk Agent Relationship Specialty Start Date End Date iNk Dumont MD [address] [place] [address] PCP - General 07/18/02 01/24/19 Rajani Rodriguez APRN OPHTHALMIC MEDICAL TECHNICIAN [address] [place] [address] [place] [address] PCP - Assigned PCP 04/25/18 10/30/18 Mamadou Jiang PA-C [address] [place] [address] PCP - Assigned PCP 10/31/18 11/30/18 Pauline Augustine APRN OPHTHALMIC MEDICAL TECHNICIAN [address] [place] [address] PCP - General Nurse Practitioner - Family 01/25/19 Rajani Rodriguez APRN OPHTHALMIC MEDICAL TECHNICIAN [address] [place] [address] [place] [address] Assigned PCP 04/25/18 10/30/18 Mamadou Jiang PA-C [address] [place] [address] Assigned PCP 10/31/18 01/22/19 Pauline Augustine APRN OPHTHALMIC MEDICAL TECHNICIAN [address] [place] [address] Assigned PCP 01/23/19 03/24/20 Mamadou Jiang PA-C [address] [place] [address] Assigned PCP 03/25/20 08/25/20 Pauline Augustine APRN OPHTHALMIC MEDICAL TECHNICIAN [address] [place] [address] Assigned PCP 08/26/20 07/13/21 Pauline Augustine APRN OPHTHALMIC MEDICAL TECHNICIAN [address] [place] [address] Assigned PCP 07/14/21 Kendrick Landry MD 9 [place] [address] Critical Care 06/27/22 Kendrick Landry MD 9 [place] [address] Critical Care 06/27/22 Nydia Murphy, [facility] Community Health Worker Primary Care - CC 10/04/2410/06/24 documented as of this encounter
--- OUTSIDE RECORDS SUMMARY | 2024-12-02 20:13 | XMS_ITS | Encounter Summary ---
Author Organization [facility] Address [address] [place] [address] Care Team Providers Care Cancer Registrar Name Role Phone Pauline Augustine APRN REGULATORY AND COMPLIANCE TECHNICIAN Primary Care Provider + Mamadou Jiang PA-C Unavailable +[phone] Pauline Augustine APRN REGULATORY AND COMPLIANCE TECHNICIAN Unavailable +[phone] Pauline Augustine APRN REGULATORY AND COMPLIANCE TECHNICIAN Unavailable [phone] Kendrick Landry MD Unavailable +[phone] Kendrick Landry MD Unavailable +[phone] Nydia Murphy [facility] Unavailable +[phone] Encounter Details Date Type Department Care Team (Late st Contact Info) Description 08/20/2020 [facility] [address] [address] Jeni Harmon MA Social History Tobacco Use Types Packs/Day Years Used Date Smoking Tobacco: Never Smokeless Tobacco: Never Alcohol Use Standard Drinks/Week Comments No 0 (1 standard drink = 0.6 oz pur e alcohol) PHQ-2 Answer Date Recorded PHQ-2 Score 0 08/20/2020 Comments No Sex and Gender Information Value Date Recorded Sex Assigned at Not on file Legal Sex Female 4:25 AM LINK TRAINER MAINTENANCE WORKER Gender Identity Not on file Sexual Orientation Straight 09/24/2021 4: 08 PM LINK TRAINER MAINTENANCE WORKER 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 No / Unsure 08/20/2020 1:01 PM LINK TRAINER MAINTENANCE WORKER documented as of this encounter Plan of Treatment Not on file documented as of this encounter Visit Diagnoses Not on filedocumented in this encounter Additional Health Concerns Infection Onset Date Last Indicated Resolved Time Rule Out COVID-19 06/19/2023 06/19/2023 06/19/2023 10:19 PM CDT Rule Out COVID-19 09/29/2023 09/29/2023 09/29/2023 3:47 PM LINK TRAINER MAINTENANCE WORKER Assessment Noted Time PHQ-9 Depression Total Score: 0 08/20/20 1:04 PM LINK TRAINER MAINTENANCE WORKER documented as of this encounter Care Teams Cancer Registrar Relationship Specialty Start Date End Date Pauline Augustine APRN REGULATORY AND COMPLIANCE TECHNICIAN [address] [place] [address] PCP - General Nurse Practitioner - Family 01/25/19 Mamadou Jiang PA-C [address] [place] [address] Assigned PCP 03/25/20 08/25/20 Pauline Augustine APRN REGULATORY AND COMPLIANCE TECHNICIAN [address] [place] [address] Assigned PCP 08/26/20 07/13/21 Pauline Augustine APRN REGULATORY AND COMPLIANCE TECHNICIAN [address] [place] [address] Assigned PCP 07/14/21 Kendrick Landry MD 9 [place], [place] [address] Critical Care 06/27/22 Kendrick Landry MD 909 [place], [place] 245165 Critical Care 06/27/22 Nydia Murphy, [facility] Community Health Worker Primary Care - CC 10/04/2410/06/24 documented as of this encounter
--- OUTSIDE RECORDS SUMMARY | 2024-12-02 20:13 | XMS_ITS | Encounter Summary ---
Author Organization [facility] Address [address] [place] [address] Care Team Providers Care Product Safety Associate Name Role Phone Nik Dumont MD Primary Care Provider + [phone] Rajani Rodriugez APRN VEHICLE DAMAGE APPRAISER Unavailable Mamadou Jiang PA-C Unavailable + Rajani Rodriguez APRN VEHICLE DAMAGE APPRAISER Unavailable Mamadou Jiang PA-C Unavailable + Pauline Augustine RAILROAD WORKER VEHICLE DAMAGE APPRAISER Unavailable + Pauline Augustine RAILROAD WORKER VEHICLE DAMAGE APPRAISER Primary Care Provider + Mamadou Jiang PA-C Unavailable + Pauline Augustine RAILROAD WORKER VEHICLE DAMAGE APPRAISER Unavailable +00 Pauline Augustine RAILROAD WORKER VEHICLE DAMAGE APPRAISER Unavailable + Kendrick Landry MD Unavailable +[phone] Kendrick Landry MD Unavailable [phone] Nydia Murphy [facility] Unavailable +[phone] Reason for Visit * Reason Onset Date Comments Refill Request 10/03/2008 Encounter Details Date Type Department Care Team (Late st Contact Info) Description 10/02/2008 [facility] [address] [phone] Nik Dumont MD [address] [id number] Refill Request Social History Tobacco Use Types Packs/Day Years Used Date Smoking Tobacco: Never Alcohol Use Standard Drinks/Week Comments No 0 (1 standard drink = 0.6 oz pur e alcohol) Comments No Sex and Gender Information Value Date Recorded Sex Assigned at Not on file Legal Sex Female 4:25 AM WASHTUB WORKER HELPER Gender Identity Not on file Sexual Orientation Straight 09/24/2021 4: 08 PM WASHTUB WORKER HELPER documented as of this encounter Miscellaneous Notes * Telephone Encounter - Dejah Menchaca - 10/03/2008 10:00 AM CST left message for patient to call back on home number. Rivera Kapoor RN TUB WORKER HELPER * Telephone Encounter - Case Ibarra - 10/02/2008 1:30 PM CST Please advise Rx sent to pharmacy TUB WORKER HELPER * Telephone Encounter - Daren Bobo - 10/02/2008 12:49 PM CST This med was prescribed by Dr Ibarra. Will therefore route to him for RFs TUB WORKER HELPER * Telephone Encounter - Gina Goldsmith - 10/02/2008 12:26 PM CST Cannot fill per protocol for this dx. TUB WORKER HELPER * Telephone Encounter - Gina Goldsmith - 10/02/2008 12:26 PM [facility] Original authorizing provider: Case Becker would like a refill of the following medications: WELLBUTRIN XL# 150 MG OR TB24 [Case Ibarra MD] Preferred pharmacy: [facility] Comment: Just refilled, but will need more by next month, Fe! Thank you! TUB WORKER HELPER documented in this encounter Plan of Treatment Not on file documented as of this encounter Visit Diagnoses Diagnosis Endometriosis of pelvic peritoneum- Primary documented in this encounter Additional Health Concerns Infection Onset Date Last Indicated Resolved Time Rule Out COVID-19 06/19/2023 06/19/2023 06/19/2023 10:19 PM CDT Rule Out COVID-19 09/29/2023 09/29/2023 09/29/2023 3:47 PM WASHTUB WORKER HELPER documented as of this encounter Care Teams Product Safety Associate Relationship Specialty Start Date End Date Nik Dumont MD [address] [place] [address] PCP - General 07/18/02 01/24/19 Rajani Rodriguez APRN VEHICLE DAMAGE APPRAISER [address] [place] [address] [place] [address] PCP - Assigned PCP 04/25/18 10/30/18 Mamadou Jiang PA-C [address] [place] [address] PCP - Assigned PCP 10/31/18 11/30/18 Pauline Augustine APRN VEHICLE DAMAGE APPRAISER [address] [place] [address] PCP - General Nurse Practitioner - Family 01/25/19 Rajani Rodriguez APRN VEHICLE DAMAGE APPRAISER [address] [place] [address] [place] [address] Assigned PCP 04/25/18 10/30/18 Mamadou Jiang PA-C [address] [place] [address] Assigned PCP 10/31/18 01/22/19 Pauline Augustine APRN VEHICLE DAMAGE APPRAISER [address] [place] [address] Assigned PCP 01/23/19 03/24/20 Mamadou Jiang PA-C [address] [place] [address] Assigned PCP 03/25/20 08/25/20 Pauline Augustine APRN VEHICLE DAMAGE APPRAISER [address] [place] [address] Assigned PCP 08/26/20 07/13/21 Pauline Augustine APRN VEHICLE DAMAGE APPRAISER [address] [place] [address] Assigned PCP 07/14/21 Kendrick Landry MD 9 [place] [address] Critical Care 06/27/22 Kendrick Landry MD 9 [place] [address] Critical Care 06/27/22 Nydia Murphy, [facility] Community Health Worker Primary Care - CC 10/04/2410/06/24 documented as of this encounter
--- OUTSIDE RECORDS SUMMARY | 2024-12-02 20:13 | XMS_ITS | Encounter Summary ---
Author Organization [facility] Address [address] [place] [address]. [place] [address] Care Team Providers Care Foot Miter Operator Name Role Phone Pauline Augustine APRN DIRECTOR ATHLETIC Primary Care Provider + Pauline Augustine APRN DIRECTOR ATHLETIC Unavailable [phone] Kendrick Landry MD Unavailable [phone] Kendrick Landry MD Unavailable [phone] Nydia Murphy CHW Unavailable [phone] Encounter Details Date Type Department Care Team (Late st Contact Info) Description 08/10/2023 [facility] Medical Advice [address] [address] Michaelle Ballesteros RN Social History Tobacco Use Types Packs/Day Years Used Date Smoking Tobacco: Never Passive Smoke Exposure: Never Smokeless Tobacco: Never Alcohol Use Standard Drinks/Week Comments No 0 (1 standard drink = 0.6 oz pur e alcohol) PHQ-2 Answer Date Recorded PHQ-2 Score 0 07/29/2023 Adolescent Education Answer Date Record ed Getting School Help Needed Not on file 06/20 Food Insecurity Answer Date Recorded Within the past 12 months, d id you worry that your food would run out before you got money to buy more? Yes 07/29/2023 Within the past 12 months, d id the food you bought just not last and you didn t have money to get more? No 07/29/2023 Housing Stability Answer Date Recorded Do you have housing? (Housin g is defined as stable permanent housing and does not include staying ouside in a car, in a tent, in an abandoned building, in an overnight fdc, or couch-surfing.) Yes 07/29/2023 Are you worried about losing your housing? No 07/29/2023 Financial Resource Strain Answer Date R ecorded Within the past 12 months, h ave you or your family members you live with been unable to get utilities (heat, electricity) when it was really needed? No 07/29/2023 Transportation Needs Answer Date Record ed Within the past 12 months, h as lack of transportation kept you from medical appointments, getting your medicines, non-medical meetings or appointments, work, or from getting things that you need? No 07/29/2023 Comments No Sex and Gender Information Value Date Recorded Sex Assigned at Not on file Legal Sex Female 4:25 AM STRIP TANK TENDER Gender Identity Not on file Sexual Orientation Straight 09/24/2021 4: 08 PM STRIP TANK TENDER Occupation Industry Job Start Date Job End [...] Last Indicated Resolved Time Rule Out COVID-19 09/29/2023 09/29/2023 09/29/2023 3:47 PM STRIP TANK TENDER Assessment Noted Time PHQ-9 Depression Total Score: 2 07/29/20 23 12:20 PM CDT documented as of this encounter Care Teams Foot Miter Operator Relationship Specialty Start Date End Date Pauline Augustine APRN DIRECTOR ATHLETIC [address] [place] [address] PCP - General Nurse Practitioner - Family 01/25/19 Pauline Augustine APRN DIRECTOR ATHLETIC [address] [place] [address] Assigned PCP 07/14/21 Kendrick Landry MD [address] [place] [address] Critical Care 06/27/22 Kendrick Landry MD 9 [place] [address] Critical Care 06/27/22 Nydia Murphy, W Community Health Worker Primary Care - CC 10/04/2410/06/24 documented as of this encounter
--- OUTSIDE RECORDS SUMMARY | 2024-12-02 20:13 | XMS_ITS | Encounter Summary ---
Author Organization [facility] Address [address] [place] [address] Care Team Providers Care Lead Programmer Name Role Phone Pauline Augustine APRN ENAMEL FINISHER Primary Care Provider + Pauline Augustine APRN ENAMEL FINISHER Unavailable [phone] Kendrick Landry MD Unavailable [phone] Kendrick Landry MD Unavailable [phone] Nydia Murphy CHW Unavailable [phone] Encounter Details Date Type Department Care Team (Late st Contact Info) Description 08/14/2021 [facility] [place] [facility] [place] [address] [address] Ulysses Diana Social History Tobacco Use Types Packs/Day Years Used Date Smoking Tobacco: Never Smokeless Tobacco: Never Alcohol Use Standard Drinks/Week Comments No 0 (1 standard drink = 0.6 oz pur e alcohol) PHQ-2 Answer Date Recorded PHQ-2 Score 2 07/01/2021 Comments No Sex and Gender Information Value Date Recorded Sex Assigned at Not on file Legal Sex Female 4:25 AM SAND AND GRAVEL PLANT OPERATOR Gender Identity Not on file Sexual Orientation Straight 09/24/2021 4: 08 PM SAND AND GRAVEL PLANT OPERATOR Occupation Industry Job Start Date Job [...] Out COVID-19 09/29/2023 09/29/2023 09/29/2023 3:47 PM SAND AND GRAVEL PLANT OPERATOR Assessment Noted Time PHQ-9 Depression Total Score: 11 021 11:56 AM CDT documented as of this encounter Care Teams Lead Programmer Relationship Specialty Start Date End Date Pauline Augustine APRN ENAMEL FINISHER [address] [place] [address] PCP - General Nurse Practitioner - Family 01/25/19 Pauline Augustine APRN ENAMEL FINISHER [address] [facility] [place] [address] Assigned PCP 07/14/21 Kendrick Landry MD [address] [place], [place] [address] Critical Care 06/27/22 Kendrick Landry MD [address] [place], [place] 940[address] Critical Care 06/27/22 Nydia Murphy, [facility] Community Health Worker Primary Care - CC 10/04/2410/06/24 documented as of this encounter
--- OUTSIDE RECORDS SUMMARY | 2024-12-02 20:13 | XMS_ITS | Encounter Summary ---
Author Organization [facility] Address [address] [place] [address]. [place] [address] Care Team Providers Care Technical Translator Name Role Phone Pauline Augustine APRN BILINGUAL SECRETARY Primary Care Provider + Pauline Augustine APRN BILINGUAL SECRETARY Unavailable [phone] Kendrick Landry MD Unavailable [phone] Kendrick Landry MD Unavailable [phone] Nydia Murphy CHW Unavailable [phone] Encounter Details Date Type Department Care Team (Late st Contact Info) Description 11/19/2021 [facility] [address] [place] [address] Pauline Augustine APRN BILINGUAL SECRETARY [address] [place] [address] Social History Tobacco Use Types Packs/Day Years Used Date Smoking Tobacco: Never Smokeless Tobacco: Never Alcohol Use Standard Drinks/Week Comments No 0 (1 standard drink = 0.6 oz pur e alcohol) PHQ-2 Answer Date Recorded PHQ-2 Score 2 09/30/2021 Comments No Sex and Gender Information Value Date Recorded Sex Assigned at Not on file Legal Sex Female 4:25 AM TEAM LEADER/RESEARCH PSYCHOLOGIST Gender Identity Not on file Sexual Orientation Straight 09/24/2021 4: 08 PM TEAM LEADER/RESEARCH PSYCHOLOGIST Occupation Industry Job Start Date Job End [...] Out COVID-19 09/29/2023 09/29/2023 09/29/2023 3:47 PM TEAM LEADER/RESEARCH PSYCHOLOGIST Assessment Noted Time PHQ-9 Depression Total Score: 7 09/30/19 2:53 PM TEAM LEADER/RESEARCH PSYCHOLOGIST documented as of this encounter Care Teams Technical Translator Relationship Specialty Start Date End Date Pauline Augustine APRN BILINGUAL SECRETARY [address] [place] [address] PCP - General Nurse Practitioner - Family 01/25/19 Pauline Augustine APRN BILINGUAL SECRETARY [address] [place] [address] Assigned PCP 07/14/21 Kendrick Landry MD [address] [place] [address] Critical Care 06/27/22 Kendrick Landry MD [address] [place] [address] Critical Care 06/27/22 Nydia Murphy, [facility] Community Health Worker Primary Care - CC 10/04/2410/06/24 documented as of this encounter
--- OUTSIDE RECORDS SUMMARY | 2024-12-02 20:13 | XMS_ITS | Encounter Summary ---
Author Organization [facility] Address [address] [place] [address] Care Team Providers Care Roofing Superintendent Name Role Phone Nik Dumont MD Primary Care Provider + [phone] Rajani Rodriguez APRN BACK MAKER Unavailable Mamadou Jiang-C Unavailable + Rajani Rodriguez APRN BACK MAKER Unavailable Mamadou Jiang-C Unavailable + Pauline Augustine BINDING NICKER BACK MAKER Unavailable + Pauline Augustine BINDING NICKER BACK MAKER Primary Care Provider + Mamadou Jiang-C Unavailable + Pauline Augustine APRN BACK MAKER Unavailable + Pauline Augustine APRN BACK MAKER Unavailable + Kendrick Landry MD Unavailable [phone] Kendrick Landry MD Unavailable + [phone] Nydia Murphy [facility] Unavailable [phone] Reason for Visit * Reason Onset Date Comments Refill Request 08/02/2017 escitalopram (LE XAPRO) 20 MG tablet Encounter Details Date Type Department Care Team (Late st Contact Info) Description 08/02/2017 Refill M [facility] [address] [facility] [address] [place] [address] Nik Dumont MD [address] [place] [address] [id number] Refill Request (escitalopram (LEXAPRO) 20 MG tablet) Social History Tobacco Use Types Packs/Day Years Used Date Smoking Tobacco: Never Smokeless Tobacco: Never Alcohol Use Standard Drinks/Week Comments No 0 (1 standard drink = 0.6 oz pur e alcohol) Comments No Sex and Gender Information Value Date Recorded Sex Assigned at Not on file Legal Sex Female 4:25 AM READING PROFESSOR Gender Identity Not on file Sexual Orientation Straight 09/24/2021 4: 08 PM READING PROFESSOR 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 escitalopram (LEXAPRO) 20 MG tablet 45 tablet 1 Sig: Take 1.5 tablets (30 mg) by mouth daily SSRIs Protocol Failed 08/02/2017 7:13 PM Failed - PHQ-9 score less than 5 in past 6 months Please review PHQ-9 score. Passed - Medication is NOT Bupropion If the medication is Bupropion (Wellbutrin), and the patient is taking for smoking cessation; OK torefill. Passed - Patient is age 18 or older Passed - No active on record Passed - No positive test in last 12 months Passed - Recent (6 mo) or future visit with authorizing provider's specialty Patient had office visit in the last 6 months or has a visit in the next 30 days with authorizing provider. See chart review. Routing refill request to provider for review/approval because: High dose warning, please sign if ok. Last PHQ 9 06/14 was a 4. Nury Amanda, nut orchardist Nurse Nury Amanda, nut orchardist Nurse ING PROFESSOR * Telephone Encounter - David Tsai - 08/02/2017 7:12 PM CST DACIA: 07/17/2017 ING PROFESSOR documented in this encounter Plan of Treatment Not on file documented as of this encounter Visit Diagnoses Diagnosis Adjustment disorder with mixed anxiety and depressed mood documented in this encounter Additional Health Concerns Infection Onset Date Last Indicated Resolved Time Rule Out COVID-19 06/19/2023 06/19/2023 06/19/2023 10:19 PM CDT Rule Out COVID-19 09/29/2023 09/29/2023 09/29/2023 3:47 PM READING PROFESSOR Assessment Noted Time PHQ-9 Depression Total Score: 4 04/04/20 17 7:28 AM CDT documented as of this encounter Care Teams Roofing Superintendent Relationship Specialty Start Date End Date Nik Dumont MD [address] [address] PCP - General 07/18/02 01/24/19 Rajani Rodriguez APRN BACK MAKER [address] [place] [address] [place] [address] PCP - Assigned PCP 04/25/18 10/30/18 Mamadou Jiang PA-C [address] [place] [address] PCP - Assigned PCP 10/31/18 11/30/18 Pauline Augustine APRN BACK MAKER [address] [place] [address] PCP - General Nurse Practitioner - Family 01/25/19 Rajani Rodriguez APRN BACK MAKER [address] [place] [address] [place] [address] Assigned PCP 04/25/18 10/30/18 Mamadou Jiang PA-C [address] [place] [address] Assigned PCP 10/31/18 01/22/19 Pauline Augustine APRN BACK MAKER [address] [place] [address] Assigned PCP 01/23/19 03/24/20 Mamadou Jiang PA-C [address] [place] [address] Assigned PCP 03/25/20 08/25/20 Pauline Augustine APRN BACK MAKER [address] [place] [address] Assigned PCP 08/26/20 07/13/21 Pauline Augustine APRN BACK MAKER [address] [place] [address] Assigned PCP 07/14/21 Kendrick Landry MD [address] [place] [address] Critical Care 06/27/22 Kendrick Landry MD 9 [place] [address] Critical Care 06/27/22 Nydia Murphy, [facility] Community Health Worker Primary Care - CC 10/04/2410/06/24 documented as of this encounter
--- OUTSIDE RECORDS SUMMARY | 2024-12-02 20:13 | XMS_ITS | Encounter Summary ---
Author Organization [facility] Address [address] [place] [address]. [place] [address] Care Team Providers Care Roll Wrapper Name Role Phone Pauline Augustine APRN SCHOOL PHOTOGRAPH EDITOR Primary Care Provider + Pauline Augustine APRN SCHOOL PHOTOGRAPH EDITOR Unavailable [phone] Pauline Augustine APRN SCHOOL PHOTOGRAPH EDITOR Unavailable [phone] Kendrick Landry MD Unavailable [phone] Kendrick Landry MD Unavailable [phone] Nydia Murphy CHW Unavailable [phone] Encounter Details Date Type Department Care Team (Late st Contact Info) Description 10/17/2020 [facility] [address] [address] Pauline Augustine APRN SCHOOL PHOTOGRAPH EDITOR [address] [place] [address] Social History Tobacco Use Types Packs/Day Years Used Date Smoking Tobacco: Never Smokeless Tobacco: Never Alcohol Use Standard Drinks/Week Comments No 0 (1 standard drink = 0.6 oz pur e alcohol) PHQ-2 Answer Date Recorded PHQ-2 Score 0 08/20/2020 Comments No Sex and Gender Information Value Date Recorded Sex Assigned at Not on file Legal Sex Female 4:25 AM LIMOUSINE RENTAL CLERK Gender Identity Not on file Sexual Orientation Straight 09/24/2021 4: 08 PM LIMOUSINE RENTAL CLERK Occupation Industry Job Start Date Job [...] Out COVID-19 09/29/2023 09/29/2023 09/29/2023 3:47 PM LIMOUSINE RENTAL CLERK Assessment Noted Time PHQ-9 Depression Total Score: 0 08/20/20 1:04 PM LIMOUSINE RENTAL CLERK documented as of this encounter Care Teams Roll Wrapper Relationship Specialty Start Date End Date Pauline Augustine APRN SCHOOL PHOTOGRAPH EDITOR [address] [place] [address] PCP - General Nurse Practitioner - Family 01/25/19 Pauline Augustine APRN SCHOOL PHOTOGRAPH EDITOR [address] [place] [address] Assigned PCP 08/26/20 07/13/21 Pauline Augustine APRN SCHOOL PHOTOGRAPH EDITOR [address] [place] [address] Assigned PCP 07/14/21 Kendrick Landry MD 9 [place] [address] Critical Care 06/27/22 Kendrick Landry MD 9 [place] [address] Critical Care 06/27/22 Nydia Murphy, [facility] Community Health Worker Primary Care - CC 10/04/2410/06/24 documented as of this encounter
--- OUTSIDE RECORDS SUMMARY | 2024-12-02 20:13 | XMS_ITS | Encounter Summary ---
Author Organization [facility] Address [address] [place] [address] Care Team Providers Care Rhythmic Gymnastics Coach Name Role Phone Pauline Augustine APRN UMBRELLA TIPPER MACHINE Primary Care Provider + Pauline Augustine APRN UMBRELLA TIPPER MACHINE Unavailable [phone] Kendrick Landry MD Unavailable [phone] Kendrick Landry MD Unavailable [phone] Nydia Murphy CHW Unavailable [phone] Encounter Details Date Type Department Care Team (Late st Contact Info) Description 04/21/2024 [facility] Medical Advice [address] [address] Stacy Landers Social History Tobacco Use Types Packs/Day Years [...] in an abandoned building, in an overnight assisted, or couch-surfing.) Yes 07/29/2023 Are you worried [...] on file Legal Sex Female 4:25 AM LOT BOSS Gender Identity Not on file Sexual Orientation Straight 09/24/2021 4: 08 PM LOT BOSS 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 Not on file Not on file Not on file Not on file documented as of this encounter Plan of Treatment Not on file documented as of this encounter Visit Diagnoses Not on filedocumented in this encounter Additional Health Concerns Assessment Noted Time PHQ-9 Depression Total Score: 2 07/29/20 23 12:20 PM CDT documented as of this encounter Care Teams Rhythmic Gymnastics Coach Relationship Specialty Start Date End Date Pauline Augustine APRN UMBRELLA TIPPER MACHINE [address] [place] [address] PCP - General Nurse Practitioner - Family 01/25/19 Pauline Augustine APRN UMBRELLA TIPPER MACHINE [address] [facility] [place] [address] Assigned PCP 07/14/21 Kendrick Landry MD [address] [place] [address] Critical Care 06/27/22 Kendrick Landry MD [address] [place] [address] Critical Care 06/27/22 Nydia Murphy, W Community Health Worker Primary Care - CC 10/04/2410/06/24 documented as of this encounter
--- OUTSIDE RECORDS SUMMARY | 2024-12-02 20:13 | XMS_ITS | Encounter Summary ---
Author Organization [facility] Address [address] [place] [address] Care Team Providers Care Salon Receptionist Name Role Phone Nik Dumont MD Primary Care Provider + [phone] ShawnRajani Rocha APRN ORACLE EBS ARCHITECT Unavailable Mamadou Jiang PA-C Unavailable + Shawn-Rajani Quintanilla APRN ORACLE EBS ARCHITECT Unavailable Mamadou Jiang PA-C Unavailable + Pauline Augustine DIGITAL MARKETING INTERN ORACLE EBS ARCHITECT Unavailable + Pauline Augustine DIGITAL MARKETING INTERN ORACLE EBS ARCHITECT Primary Care Provider + Mamadou Jiang PA-C Unavailable + Pauline Augustine APRN ORACLE EBS ARCHITECT Unavailable +[phone] Pauline Augustine APRN ORACLE EBS ARCHITECT Unavailable +[phone] Kendrick Landry MD Unavailable [phone] Kendrick Landry MD Unavailable [phone] Nydia Murphy [facility] Unavailable [phone] Encounter Details Date Type Department Care Team (Late st Contact Info) Description 05/17/2013 [facility] [address] [place] [address] Case Ibarra MD RETIRED Social History Tobacco Use Types Packs/Day Years Used Date Smoking Tobacco: Never Smokeless Tobacco: Never Alcohol Use Standard Drinks/Week Comments No 0 (1 standard drink = 0.6 oz pur e alcohol) Comments No Sex and Gender Information Value Date Recorded Sex Assigned at Not on file Legal Sex Female 4:25 AM OTHER WOOD PROCESSING MACHINE OPERATOR Gender Identity Not on file Sexual Orientation Straight 09/24/2021 4: 08 PM OTHER WOOD PROCESSING MACHINE OPERATOR Occupation Industry Job Start Date [...] Rule Out COVID-09/29/2023 09/29/2023 09/29/2023 3:47 PM OTHER WOOD PROCESSING MACHINE OPERATOR documented as of this encounter Care Teams Salon Receptionist Relationship Specialty Start Date End Date Nik Dumont MD [address] [address] PCP - General 07/18/02 01/24/19 Rajani Rodriguez APRN ORACLE EBS ARCHITECT [address] [place] [address] [place] [address] PCP - Assigned PCP 04/25/18 10/30/18 Mamadou Jiang PA-C [address] [place] [address] PCP - Assigned PCP 10/31/18 11/30/18 Pauline Augustine APRN ORACLE EBS ARCHITECT [address] [place] [address] PCP - General Nurse Practitioner - Family 01/25/19 Rajani Rodriguez APRN ORACLE EBS ARCHITECT [address] [place] [address] [place] [address] Assigned PCP 04/25/18 10/30/18 Mamadou Jiang PA-C [address] [place] [address] Assigned PCP 10/31/18 01/22/19 Pauline Augustine APRN ORACLE EBS ARCHITECT [address] [place] [address] Assigned PCP 01/23/19 03/24/20 Mamadou Jiang PA-C [address] [place] [address] Assigned PCP 03/25/20 08/25/20 Pauline Augustine APRN ORACLE EBS ARCHITECT [address] [place] [address] Assigned PCP 08/26/20 07/13/21 Pauline Augustine APRN ORACLE EBS ARCHITECT [address] [place] [address] Assigned PCP 07/14/21 Kendrick Landry MD 9 [place] [address] Critical Care 06/27/22 Kendrick Landry MD [address] [place] [address] Critical Care 06/27/22 Nydia Murphy, [facility] Community Health Worker Primary Care - CC 10/04/2410/06/24 documented as of this encounter
--- OUTSIDE RECORDS SUMMARY | 2024-12-02 20:13 | XMS_ITS | Encounter Summary ---
Author Organization [facility] Address [address] [place] [address] Care Team Providers Care Operating Room Registered Nurse Name Role Phone Pauline Augustine APRN HYDRODYNAMICS PROFESSOR Primary Care Provider + Pauline Augustine APRN HYDRODYNAMICS PROFESSOR Unavailable [phone] Kendrick Landry MD Unavailable [phone] Kendrick Landry MD Unavailable [phone] Nydia Murphy CHW Unavailable [phone] Encounter Details Date Type Department Care Team (Late st Contact Info) Description 05/15/2023 [facility] Medical Advice M [address] [address] Keya Martinez Social History Tobacco Use Types Packs/Day Years Used Date Smoking Tobacco: Never Passive Smoke Exposure: Never Smokeless Tobacco: Never Alcohol Use Standard Drinks/Week Comments No 0 (1 standard drink = 0.6 oz pur e alcohol) PHQ-2 Answer Date Recorded PHQ-2 Score 2 02/06/2023 Comments No Sex and Gender Information Value Date Recorded Sex Assigned at Not on file Legal Sex Female 4:25 AM GLOST TILE SHADER Gender Identity Not on file Sexual Orientation Straight 09/24/2021 4: 08 PM GLOST TILE SHADER Occupation Industry Job Start Date Job End [...] Out COVID-19 09/29/2023 09/29/2023 09/29/2023 3:47 PM GLOST TILE SHADER Assessment Noted Time PHQ-9 Depression Total Score: 8 02/07/20 23 10:22 AM CDT documented as of this encounter Care Teams Operating Room Registered Nurse Relationship Specialty Start Date End Date Pauline Augustine APRN HYDRODYNAMICS PROFESSOR [address] [place] [address] PCP - General Nurse Practitioner - Family 01/25/19 Pauline Augustine APRN HYDRODYNAMICS PROFESSOR [address] [place] [address] Assigned PCP 07/14/21 Kendrick Landry MD [address] [place], [place] [address] Critical Care 06/27/22 Kendrick Landry MD [address] [place] [address] Critical Care 06/27/22 Nydia Murphy, [facility] Community Health Worker Primary Care - CC 10/04/2410/06/24 documented as of this encounter
--- OUTSIDE RECORDS SUMMARY | 2024-12-02 20:13 | XMS_ITS | Encounter Summary ---
Author Organization [place] Address [address] [place] [address] Care Team Providers Care Night Filler Name Role Phone Nik Dumont MD Primary Care Provider + [phone] Rajani Rodriguez APRN SPINDLE SETTER Unavailable Mamadou Jiang-C Unavailable + ShawnRajani Rocha APRN SPINDLE SETTER Unavailable Mamadou Jiang PA-C Unavailable + Pauline Augustine LEASING PROFESSIONAL SPINDLE SETTER Unavailable + Pauline Augustine LEASING PROFESSIONAL SPINDLE SETTER Primary Care Provider + Mamadou Jiang PA-C Unavailable + Pauline Augustine APRN SPINDLE SETTER Unavailable +[phone] Pauline Augustine APRN SPINDLE SETTER Unavailable +[phone] Kendrick Landry MD Unavailable +[phone] Kendrick Landry MD Unavailable +[phone] Nydia Murphy [facility] Unavailable [phone] Reason for Visit * Reason Onset Date Comments Care 07/30/2012 nausea Encounter Details Date Type Department Care Team (Late st Contact Info) Description 07/30/2012 [facility] [address] [place] [address] Case Ibarra MD RETIRED Care (nausea) Social History Tobacco Use Types Packs/Day Years Used Date Smoking Tobacco: Never Smokeless Tobacco: Never Alcohol Use Standard Drinks/Week Comments No 0 (1 standard drink = 0.6 oz pur e alcohol) Comments No Sex and Gender Information Value Date Recorded Sex Assigned at Not on file Legal Sex Female 4:25 AM SUSTAINABILITY COMMUNICATOR Gender Identity Not on file Sexual Orientation Straight 09/24/2021 4: 08 PM SUSTAINABILITY COMMUNICATOR 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 Chaya Martell RN documented in this encounter Plan of Treatment Not on file documented as of this encounter Visit Diagnoses Not on filedocumented in this encounter Additional Health Concerns Infection Onset Date Last Indicated Resolved Time Rule Out COVID-19 06/19/2023 06/19/2023 06/19/2023 10:19 PM CDT Rule Out COVID-19 09/29/2023 09/29/2023 09/29/2023 3:47 PM SUSTAINABILITY COMMUNICATOR documented as of this encounter Care Teams Night Filler Relationship Specialty Start Date End Date Nik Dumont MD [address] [address] PCP - General 07/18/02 01/24/19 Rajani Rodriguez APRN SPINDLE SETTER [address] [place] [address] [place] [address] PCP - Assigned PCP 04/25/18 10/30/18 Mamadou Jiang PA-C [address] [place] [address] PCP - Assigned PCP 10/31/18 11/30/18 Pauline Augustine APRN SPINDLE SETTER [address] [place] [address] PCP - General Nurse Practitioner - Family 01/25/19 Rajani Rodriguez APRN SPINDLE SETTER [address] [facility] [place] [address] Assigned PCP 04/25/18 10/30/18 Mamadou Jiang PA-C [address] [place] [address] Assigned PCP 10/31/18 01/22/19 Pauline Augustine APRN SPINDLE SETTER [address] [place] [address] Assigned PCP 01/23/19 03/24/20 Mamadou Jiang PA-C [address] [place] [address] Assigned PCP 03/25/20 08/25/20 Pauline Augustine APRN SPINDLE SETTER [address] [place] [address] Assigned PCP 08/26/20 07/13/21 Pauline Augustine APRN SPINDLE SETTER [address] [place] [address] Assigned PCP 07/14/21 Kendrick Landry MD 9 [place] [address] Critical Care 06/27/22 Kendrick Landry MD [address] [place] [address] Critical Care 06/27/22 Nydia Murphy, W Community Health Worker Primary Care - CC 10/04/2410/06/24 documented as of this encounter
--- OUTSIDE RECORDS SUMMARY | 2024-12-02 20:13 | XMS_ITS | Encounter Summary ---
Author Organization [address] Address [address] [place] [address] Care Team Providers Care Pillow Cleaner Name Role Phone Pauline Augustine APRN ATTIC FANS MECHANIC Primary Care Provider + Pauline Augustine APRN ATTIC FANS MECHANIC Unavailable [phone] Pauline Augustine APRN ATTIC FANS MECHANIC Unavailable [phone] Kendrick Landry MD Unavailable +[phone] Kendrick Landry MD Unavailable +[phone] Nydia Murphy W Unavailable [phone] Encounter Details Date Type Department Care Team (Late st Contact Info) Description 05/14/2021 [facility] Medical Advice [address] [address] Lilliam Tatum Social History Tobacco Use Types Packs/Day Years Used Date Smoking Tobacco: Never Smokeless Tobacco: Never Alcohol Use Standard Drinks/Week Comments No 0 (1 standard drink = 0.6 oz pur e alcohol) PHQ-2 Answer Date Recorded PHQ-2 Score 0 08/20/2020 Comments No Sex and Gender Information Value Date Recorded Sex Assigned at Not on file Legal Sex Female 4:25 AM SIGN LANGUAGE TRANSLATOR Gender Identity Not on file Sexual Orientation Straight 09/24/2021 4: 08 PM SIGN LANGUAGE TRANSLATOR Occupation Industry Job Start Date Job End [...] Indicated Resolved Time Rule Out COVID-19 06/19/2023 06/19/202306/1906/19/2023 10:19 PM CDT Rule Out COVID-19 09/29/2023 09/29/2023 09/29/2023 3:47 PM SIGN LANGUAGE TRANSLATOR Assessment Noted Time PHQ-9 Depression Total Score: 0 08/20/20 1:04 PM SIGN LANGUAGE TRANSLATOR documented as of this encounter Care Teams Pillow Cleaner Relationship Specialty Start Date End Date Pauline Augustine APRN ATTIC FANS MECHANIC [address] [place] [address] PCP - General Nurse Practitioner - Family 01/25/19 Pauline Augustine APRN ATTIC FANS MECHANIC [address] [place] [address] Assigned PCP 08/26/20 07/13/21 Pauline Augustine APRN ATTIC FANS MECHANIC [address] [place] [address] Assigned PCP 07/14/21 Kendrick Landry MD [address] [place] [address] Critical Care 06/27/22 Kendrick Landry MD 9 [place] [address] Critical Care 06/27/22 Nydia Murphy, [facility] Community Health Worker Primary Care - CC 10/04/2410/06/24 documented as of this encounter
--- OUTSIDE RECORDS SUMMARY | 2024-12-02 20:13 | XMS_ITS | Encounter Summary ---
Author Organization [place] Address [address] [place] [address] Care Team Providers Care Pain Medicine Physician Name Role Phone Nik Dumont MD Primary Care Provider + [phone] Rajani Rodriguez APRN MARINE EQUIPMENT PRESERVATION INSPECTOR Unavailable Mamadou Jiang-C Unavailable [phone] Rajani Rodriguez APRN MARINE EQUIPMENT PRESERVATION INSPECTOR Unavailable Mamadou Jiang-C Unavailable +[phone] Pauline Augustine APRN MARINE EQUIPMENT PRESERVATION INSPECTOR Unavailable [phone] Pauline Augustine APRN MARINE EQUIPMENT PRESERVATION INSPECTOR Primary Care Provider + Mamadou Jiang-C Unavailable +[phone] Pauline Augustine APRN MARINE EQUIPMENT PRESERVATION INSPECTOR Unavailable [phone] Pauline Augustine APRN MARINE EQUIPMENT PRESERVATION INSPECTOR Unavailable [phone] Kendrick Landry MD Unavailable [phone] Kendrick Landry MD Unavailable +[phone] Nydia Murphy [facility] Unavailable [phone] Reason for Visit * Reason Onset Date Comments Sinus Problem 07/20/2017 Encounter Details Date Type Department Care Team (Late st Contact Info) Description 07/20/2017 [facility] [place] [address] [place] [address] Rajani Rodriguez APRN MARINE EQUIPMENT PRESERVATION INSPECTOR [address] [facility] [place] [address] Sinus Problem Social History Tobacco Use Types Packs/Day Years Used Date Smoking Tobacco: Never Smokeless Tobacco: Never Alcohol Use Standard Drinks/Week Comments No 0 (1 standard drink = 0.6 oz pur e alcohol) Comments No Sex and Gender Information Value Date Recorded Sex Assigned at Not on file Legal Sex Female 4:25 AM OVERHAULER Gender Identity Not on file Sexual Orientation Straight 09/24/2021 4: 08 PM OVERHAULER 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 Gina Becker CMA * Telephone Encounter - Thalia Carlton - 07/20/2017 5:49 PM CDT First MyC message from pt: Do you think you could see if dr berger could see me dinner or should we wait till the scan. The pain is getting hard to function. documented in this encounter Plan of Treatment Not on file documented as of this encounter Visit Diagnoses Not on filedocumented in this encounter Additional Health Concerns Infection Onset Date Last Indicated Resolved Time Rule Out COVID-19 06/19/2023 06/19/2023 06/19/2023 10:19 PM CDT Rule Out COVID-19 09/29/2023 09/29/2023 09/29/2023 3:47 PM OVERHAULER Assessment Noted Time PHQ-9 Depression Total Score: 4 04/04/20 17 7:28 AM CDT documented as of this encounter Care Teams Pain Medicine Physician Relationship Specialty Start Date End Date Nik Dumont MD [address] [place] [address] PCP - General 07/18/02 01/24/19 Rajani Rodriguez APRN MARINE EQUIPMENT PRESERVATION INSPECTOR [address] [place] [address] [place] [address] PCP - Assigned PCP 04/25/18 10/30/18 Mamadou Jiang PA-C [address] [place] [address] PCP - Assigned PCP 10/31/18 11/30/18 Pauline Augustine APRN MARINE EQUIPMENT PRESERVATION INSPECTOR [address] [place] [address] PCP - General Nurse Practitioner - Family 01/25/19 Rajani Rodriguez APRN MARINE EQUIPMENT PRESERVATION INSPECTOR [address] [place] [address] [place] [address] Assigned PCP 04/25/18 10/30/18 Mamadou Jiang PA-C [address] [place] [address] Assigned PCP 10/31/18 01/22/19 Pauline Augustine APRN MARINE EQUIPMENT PRESERVATION INSPECTOR [address] [place] [address] Assigned PCP 01/23/19 03/24/20 Mamadou Jiang PA-C [address] [place] [address] Assigned PCP 03/25/20 08/25/20 Pauline Augustine APRN MARINE EQUIPMENT PRESERVATION INSPECTOR [address] [place] [address] Assigned PCP 08/26/20 07/13/21 Pauline Augustine APRN MARINE EQUIPMENT PRESERVATION INSPECTOR [address] [place] [address] Assigned PCP 07/14/21 Kendrick Landry MD [address] [place] [address]1815 Critical Care 06/27/22 Kendrick Landry MD [address] [place] [address]83[address] Critical Care 06/27/22 yNdia Murphy, [facility] Community Health Worker Primary Care - CC 10/04/2410/06/24 documented as of this encounter
--- OUTSIDE RECORDS SUMMARY | 2024-12-02 20:13 | XMS_ITS | Encounter Summary ---
Author Organization [place] Address [address] [place] [address]. [place] [address] Care Team Providers Care Bellows Filler Name Role Phone Pauline Augustine APRN BAG PRINTER Primary Care Provider + Pauline Augustine APRN BAG PRINTER Unavailable [phone] Pauline Augustine APRN BAG PRINTER Unavailable [phone] Kendrick Landry MD Unavailable [phone] Kendrick Landry MD Unavailable [phone] Nydia Murphy [facility] Unavailable [phone] Encounter Details Date Type Department Care Team (Late st Contact Info) Description 06/12/2021 [facility] Medical Advice [facility] [address] [place] [address] Pauline Augustine APRN BAG PRINTER [address] [place] [address] Adjustment disorder with mixed anxiety and depressed mood Social History Tobacco Use Types Packs/Day Years Used Date Smoking Tobacco: Never Smokeless Tobacco: Never Alcohol Use Standard Drinks/Week Comments No 0 (1 standard drink = 0.6 oz pur e alcohol) PHQ-2 Answer Date Recorded PHQ-2 Score 0 08/20/2020 Comments No Sex and Gender Information Value Date Recorded Sex Assigned at Not on file Legal Sex Female 4:25 AM BASIC SCIENCES DEAN Gender Identity Not on file Sexual Orientation Straight 09/24/2021 4: 08 PM BASIC SCIENCES DEAN 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 Will give refill so patient does not have to go without. Kyara Turk RN * Telephone Encounter - Shari Martínez RN - 06/12/2021 1:24 PM CDT Called the pt. Appt was rescheduled. Will forward to the refill pool. documented in this encounter Plan of Treatment Not on file documented as of this encounter Visit Diagnoses Diagnosis Adjustment disorder with mixed anxiety and depressed mood documented in this encounter Additional Health Concerns Infection Onset Date Last Indicated Resolved Time Rule Out COVID-19 06/19/2023 06/19/2023 06/19/2023 10:19 PM CDT Rule Out COVID-19 09/29/2023 09/29/2023 09/29/2023 3:47 PM BASIC SCIENCES DEAN Assessment Noted Time PHQ-9 Depression Total Score: 0 08/20/20 20 1:04 PM BASIC SCIENCES DEAN documented as of this encounter Care Teams Bellows Filler Relationship Specialty Start Date End Date Pauline Augustine APRN BAG PRINTER [address] [place] [address] PCP - General Nurse Practitioner - Family 01/25/19 Pauline Augustine APRN BAG PRINTER [address] [place] [address] Assigned PCP 08/26/20 07/13/21 Pauline Augustine APRN BAG PRINTER [address] [place] [address] Assigned PCP 07/14/21 Kendrick Landry MD [address] [place], [place] 268335 Critical Care 06/27/22 Kendrick Landry MD [address] [place], [place] 130905 Critical Care 06/27/22 Nydia Murphy, W Community Health Worker Primary Care - CC 10/04/2410/06/24 documented as of this encounter
--- OUTSIDE RECORDS SUMMARY | 2024-12-02 20:13 | XMS_ITS | Encounter Summary ---
Author Organization [place] Address [address] [place] [address] Care Team Providers Care Plush Weaver Name Role Phone Nik Dumont MD Primary Care Provider + [phone] ShawnRajani Rocha HYDRO EXCAVATION OPERATOR SENIOR MANAGING DIRECTOR Unavailable Mamadou Jiang-C Unavailable + Shawn-Rajani Quintanilla APRN SENIOR MANAGING DIRECTOR Unavailable Mamadou Jiang PA-C Unavailable + Pauline Augustine HYDRO EXCAVATION OPERATOR SENIOR MANAGING DIRECTOR Unavailable + Pauline Augustine HYDRO EXCAVATION OPERATOR SENIOR MANAGING DIRECTOR Primary Care Provider + Mamadou Jiang PA-C Unavailable + Pauline Augustine APRN SENIOR MANAGING DIRECTOR Unavailable +[phone] Pauline Augustine APRN SENIOR MANAGING DIRECTOR Unavailable + Kendrick Landry MD Unavailable [phone] Kendrick Landry MD Unavailable [phone] Nydia Murphy [facility] Unavailable +[phone] Reason for Visit * Reason Onset Date Comments Refill Request 11/20/2014 Encounter Details Date Type Department Care Team (Late st Contact Info) Description 11/20/2014 [facility] Women[facility] [address] [place] [address] Case Ibarra MD RETIRED Refill Request Social History Tobacco Use Types Packs/Day Years Used Date Smoking Tobacco: Never Smokeless Tobacco: Never Alcohol Use Standard Drinks/Week Comments No 0 (1 standard drink = 0.6 oz pur e alcohol) Comments No Sex and Gender Information Value Date Recorded Sex Assigned at Not on file Legal Sex Female 4:25 AM SUPERVISOR COATING Gender Identity Not on file Sexual Orientation Straight 09/24/2021 4: 08 PM SUPERVISOR COATING 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 Last office visit was 03/21/[address] Regalado ([facility]) RVISOR COATING * Telephone Encounter - Cathy Marino LPN - 11/22/2014 10:37 AM CSTMessage from [facility]: Original authorizing provider: MD Esperanza Christianson would like a refill of the following medications: escitalopram (LEXAPRO) 20 MG tablet [Case Ibarra MD] Preferred pharmacy: [id number] [id number] [place] [address] Comment: Can you please refill and send to [facility] [place] [address] I only have 1 day left thought Istill had a refill left but I guess not. Thank urban Ayala RVISOR COATING documented in this encounter Plan of Treatment Not on file documented as of this encounter Visit Diagnoses Diagnosis Anxiety Anxiety state, unspecified documented in this encounter Additional Health Concerns Infection Onset Date Last Indicated Resolved Time Rule Out COVID-19 06/19/2023 06/19/2023 06/19/2023 10:19 PM CDT Rule Out COVID-19 09/29/2023 09/29/2023 09/29/2023 3:47 PM SUPERVISOR COATING documented as of this encounter Care Teams Plush Weaver Relationship Specialty Start Date End Date Nik Dumont MD [address] [place] [address], [place] [address] PCP - General 07/18/02 01/24/19 Rajani Rodriguez APRN SENIOR MANAGING DIRECTOR [address] [place] [address] [place] [address] PCP - Assigned PCP 04/25/18 10/30/18 Mamadou Jiang PA-C [address] [place] [address] PCP - Assigned PCP 10/31/18 11/30/18 Pauline Augustine APRN SENIOR MANAGING DIRECTOR [address] [place] [address] PCP - General Nurse Practitioner - Family 01/25/19 Rajani Rodriguez, MARIANN SENIOR MANAGING DIRECTOR [address] [place] [address] [place], [place] [address] Assigned PCP 04/25/18 10/30/18 Mamadou Jiang PA-C [address] [place] [address] Assigned PCP 10/31/18 01/22/19 Pauline Augustine APRN SENIOR MANAGING DIRECTOR [address] [place] [address] Assigned PCP 01/23/19 03/24/20 Mamadou Jiang PA-C [address] [place] [address] Assigned PCP 03/25/20 08/25/20 Pauline Augustine APRN SENIOR MANAGING DIRECTOR [address] [place] [address] Assigned PCP 08/26/20 07/13/21 Pauline Augustine APRN SENIOR MANAGING DIRECTOR [address] [place] [address] Assigned PCP 07/14/21 Kendrick Landry MD [address] [place], [place] 769985 Critical Care 06/27/22 Kendrick Landry MD [address] [place], [place] 9039[address] Critical Care 06/27/22 Nydia Murphy, [facility] Community Health Worker Primary Care - CC 10/04/2410/06/24 documented as of this encounter
--- OUTSIDE RECORDS SUMMARY | 2024-12-02 20:13 | XMS_ITS | Encounter Summary ---
Author Organization [place] Address [address] [place] [address] Care Team Providers Care Shotgun Shell Loading Machine Operator Name Role Phone Pauline Augustine APRN SYSTEMS TESTER Primary Care Provider + Pauline Augustine APRN SYSTEMS TESTER Unavailable [phone] Pauline Augustine APRN SYSTEMS TESTER Unavailable [phone] Kendrick Landry MD Unavailable +[phone] Kendrick Landry MD Unavailable [phone] Nydia Murphy [facility] Unavailable [phone] Encounter Details Date Type Department Care Team (Late st Contact Info) Description 01/25/2021 [facility] Medical Advice [address] [address] Michaelle Burns, MARKETING RECRUITER Social History Tobacco Use Types Packs/Day Years Used Date Smoking Tobacco: Never Smokeless Tobacco: Never Alcohol Use Standard Drinks/Week Comments No 0 (1 standard drink = 0.6 oz pur e alcohol) PHQ-2 Answer Date Recorded PHQ-2 Score 0 08/20/2020 Comments No Sex and Gender Information Value Date Recorded Sex Assigned at Not on file Legal Sex Female 4:25 AM DOWEL SANDER OPERATOR Gender Identity Not on file Sexual Orientation Straight 09/24/2021 4: 08 PM DOWEL SANDER OPERATOR Occupation Industry Job Start Date Job [...] Out COVID-19 09/29/2023 09/29/2023 09/29/2023 3:47 PM DOWEL SANDER OPERATOR Assessment Noted Time PHQ-9 Depression Total Score: 0 08/20/20 1:04 PM DOWEL SANDER OPERATOR documented as of this encounter Care Teams Shotgun Shell Loading Machine Operator Relationship Specialty Start Date End Date Pauline Augustine APRN SYSTEMS TESTER [address] [place] [address] PCP - General Nurse Practitioner - Family 01/25/19 Pauline Augustine APRN SYSTEMS TESTER [address] [place] [address] Assigned PCP 08/26/20 07/13/21 Pauline Augustine APRN SYSTEMS TESTER [address] [place] [address] Assigned PCP 07/14/21 Kendrick Landry MD [address] [place] [address] 475745 Critical Care 06/27/22 Kendrick Landry MD [address] [place] [address] Critical Care 06/27/22 Nydia Murphy, [facility] Community Health Worker Primary Care - CC 10/04/2410/06/24 documented as of this encounter
--- OUTSIDE RECORDS SUMMARY | 2024-12-02 20:13 | XMS_ITS | Encounter Summary ---
Author Organization [facility] Address [address] [place] [address]. [place] [address] Care Team Providers Care Dermatology Technician Name Role Phone Pauline Augustine APRN WARP DRESSER Primary Care Provider + Pauline Augustine APRN WARP DRESSER Unavailable [phone] Kendrick Landry MD Unavailable [phone] Kendrick Landry MD Unavailable [phone] Nydia Murphy CHW Unavailable [phone] Reason for Visit * Reason Onset Date Comments Prior Auth - Medication 07/30/2023 escitalo pram (LEXAPRO) 20 MG tablet Encounter Details Date Type Department Care Team (Late st Contact Info) Description 07/30/2023 [facility] [address] [place] [address] Pauline Augustine APRN WARP DRESSER [address] [place] [address] Prior Auth - Medication (escitalopram (LEXAPRO) 20 MG tablet) Social History [...] Answer Date Recorded Do you have housing? 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 Raeann Arellano RN ICAL PROGRAM MANAGER * Telephone Encounter - Pauline Augustine APRN CNP - 08/07/2023 12:06 PM CST I am going to try sending in new prescriptions for her--rather than doing 20 mg tabs and taking 1.5tabs daily, I will send in two Rxs one for 10 mg tabs and one for 20 mg tabs. She is now living in [place]. What pharmacy would she like me to use? Pauline Augustine CNP ICAL PROGRAM MANAGER * Telephone Encounter - Sheela Cleveland - 08/06/2023 2:19 PM CST Images from the original note were not included. Eliu Adams Ea/Rm20 minutes ago (1:59 PM) Hi, This medication was denied. If the provider would like to appeal please provide a letter of medicalnecessity and route back to the team. Otherwise please notify the patient and close the encounter. Thank you, Kenroy MIRANDA Team ICAL PROGRAM MANAGER * Telephone Encounter - Eliu Adams - 08/06/2023 1:56 PM CST Images from the original note were not included. PRIOR AUTHORIZATION DENIED Medication: escitalopram (LEXAPRO) 20 MG tablet Denial Date: 08/06/2023 Denial Rational: Appeal Information: If you would like to appeal, please supply P/A team with a letter of medical necessity with clinical reason. ICAL PROGRAM MANAGER * Telephone Encounter - Eliu Adams - 08/04/2023 12:32 PM CST Images from the original note were not included. Central Prior Authorization Team PA Initiation Medication: escitalopram (LEXAPRO) 20 MG tablet Insurance Company: [facility] - Pharmacy Filling the Rx: [facility] - [place], [place] - [address] [facility] Filling Pharmacy Filling Pharmacy Fax: Start Date: 08/04/2023 ICAL PROGRAM MANAGER * Telephone Encounter - Tamra Osorio - 07/30/2023 2:31 PM CDT Images from the original note were not included. Central Prior Authorization Team Prior Authorization Request in [employer]: Dated 07/29/23 documented in this encounter Plan of Treatment Not on file documented as of this encounter Visit Diagnoses Not on filedocumented in this encounter Additional Health Concerns Infection Onset Date Last Indicated Resolved Time Rule Out COVID-19 09/29/2023 09/29/2023 09/29/2023 3:47 PM CLINICAL PROGRAM MANAGER Assessment Noted Time PHQ-9 Depression Total Score: 2 07/29/20 12:20 PM CDT documented as of this encounter Care Teams Dermatology Technician Relationship Specialty Start Date End Date Pauline Augustine APRN WARP DRESSER [address] [place] [address] PCP - General Nurse Practitioner - Family 01/25/19 Pauline Augustine APRN WARP DRESSER [address] [place] [address] Assigned PCP 07/14/21 Kendrick Landry MD [address] [place], [place] [address] Critical Care 06/27/22 Kendrick Landry MD [address] [place] [address] Critical Care 06/27/22 Nydia Murphy, [facility] Community Health Worker Primary Care - CC 10/04/2410/06/24 documented as of this encounter
--- OUTSIDE RECORDS SUMMARY | 2024-12-02 20:13 | XMS_ITS | Encounter Summary ---
Author Organization [facility] Address [address] [place] [address] Care Team Providers Care Stranding Machine Operator Name Role Phone Nik Dumont MD Primary Care Provider + [phone] Rajani Rodriguez [employer] PILOT INTERACTIVE MARKETING STRATEGIST Unavailable Mamadou Jiang PA-C Unavailable + Shawn-Rajani Quintanilla APRN INTERACTIVE MARKETING STRATEGIST Unavailable Mamadou Jiang PA-C Unavailable + Pauline Augustine [employer] PILOT INTERACTIVE MARKETING STRATEGIST Unavailable + Pauline Augustine [employer] PILOT INTERACTIVE MARKETING STRATEGIST Primary Care Provider + Mamadou Jiang PA-C Unavailable +00 Pauline Augustine [employer]POR[employer] PILOT INTERACTIVE MARKETING STRATEGIST Unavailable +00 Pauline Augustine [employer] PILOT INTERACTIVE MARKETING STRATEGIST Unavailable + Kendrick Landry MD Unavailable [phone] Kendrick Landry MD Unavailable [phone] Nydia Murphy [facility] Unavailable [phone] Encounter Details Date Type Department Care Team (Late st Contact Info) Description 10/19/2014 [facility] [address] [address] Nik Dumont MD [address] [address] Social History Tobacco Use Types Packs/Day Years Used Date Smoking Tobacco: Never Smokeless Tobacco: Never Alcohol Use Standard Drinks/Week Comments No 0 (1 standard drink = 0.6 oz pur e alcohol) Comments No Sex and Gender Information Value Date Recorded Sex Assigned at Not on file Legal Sex Female 4:25 AM CHARGING BOARD OPERATOR Gender Identity Not on file Sexual Orientation Straight 09/24/2021 4: 08 PM CHARGING BOARD OPERATOR Occupation Industry Job Start Date Job [...] Out COVID-19 09/29/2023 09/29/2023 09/29/2023 3:47 PM CHARGING BOARD OPERATOR documented as of this encounter Care Teams Stranding Machine Operator Relationship Specialty Start Date End Date Nik Dumont MD [address] [address] PCP - General 07/18/02 01/24/19 Rajani Rodriguez APRN INTERACTIVE MARKETING STRATEGIST [address] [place] [address] [place] [address] PCP - Assigned PCP 04/25/18 10/30/18 Mamadou Jiang PA-C [address] [place] [address] PCP - Assigned PCP 10/31/18 11/30/18 Pauline Augustine APRN INTERACTIVE MARKETING STRATEGIST [address] [place] [address] PCP - General Nurse Practitioner - Family 01/25/19 Rajani Rodriguez APRN INTERACTIVE MARKETING STRATEGIST [address] [place] [address] Assigned PCP 04/25/18 10/30/18 Mamadou Jiang PA-C [address] [place] [address] Assigned PCP 10/31/18 01/22/19 Pauline Augustine APRN INTERACTIVE MARKETING STRATEGIST [address] [place] [address] Assigned PCP 01/23/19 03/24/20 Mamadou Jiang PA-C [address] [place] [address] Assigned PCP 03/25/20 08/25/20 Pauline Augustine APRN INTERACTIVE MARKETING STRATEGIST [address] [place] [address] Assigned PCP 08/26/20 07/13/21 Pauline Augustine APRN INTERACTIVE MARKETING STRATEGIST [address] [place] [address] Assigned PCP 07/14/21 Kendrick Landry MD [address] [place] [address] Critical Care 06/27/22 Kendrick Landry MD [address] [place] [address] Critical Care 06/27/22 Nydia Murphy, [facility] Community Health Worker Primary Care - CC 10/04/2410/06/24 documented as of this encounter
--- OUTSIDE RECORDS SUMMARY | 2024-12-02 20:13 | XMS_ITS | Encounter Summary ---
Author Organization [facility] Address [address] [place] [address]. [place] [address] Care Team Providers Care C Java Developer Name Role Phone Pauline Augustine APRN LITHOGRAPHIC PRESS OPERATOR APPRENTICE Primary Care Provider + Pauline Augustine APRN LITHOGRAPHIC PRESS OPERATOR APPRENTICE Unavailable [phone] Kendrick Landry MD Unavailable [phone] Kendrick Landry MD Unavailable [phone] Nydia Murphy CHW Unavailable [phone] Reason for Visit * Reason Onset Date Comments Refill Request 05/12/2023 Encounter Details Date Type Department Care Team (Late st Contact Info) Description 05/12/2023 My[facility] Refill [facility] [address] [place] [address] Pauline Augustine APRN LITHOGRAPHIC PRESS OPERATOR APPRENTICE [address] [place] [address] Refill Request Social History Tobacco Use Types [...] on file Legal Sex Female 4:25 AM PROJECT MGR Gender Identity Not on file Sexual Orientation Straight 09/24/2021 4: 08 PM PROJECT MGR 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 Delilah Colbert Lead Service Dispatcher * Telephone Encounter - Keya Martinez - 05/22/2023 1:27 PM CDT LVM requesting a call back for an appt. One more attempt will be made. Keya Powell Service Dispatcher * Telephone Encounter - Keya Martinez - 05/15/2023 8:58 AM CDT Sent [employer] message requesting a call back for an appt. Two more attempts will be made. Keya Powell Service Dispatcher * Telephone Encounter - Pauline Augustine APRN CNP - 05/15/2023 8:00 AM CDT Needs virtual deprssion/anxiety follow-up. Assist with scheduling. Pauline Augustine LITHOGRAPHIC PRESS OPERATOR APPRENTICE * Telephone Encounter - Dori Griggs RN - 05/14/2023 1:07 PM CDT Routing refill request to provider for review/approval because: Labs out of range: PHQ-9 PHQ-9 score: 02/06/2023 10:21 AM PHQ PHQ-9 Total Score 8 Q9: Thoughts of better off /self-harm past 2 weeks Not at all Dori Kong RN, BSN, PHN documented in this encounter Plan of Treatment Not on file documented as of this encounter Visit Diagnoses Diagnosis Adjustment disorder with mixed anxiety and depressed mood documented in this encounter Additional Health Concerns Infection Onset Date Last Indicated Resolved Time Rule Out COVID-19 06/19/2023 06/19/2023 06/19/2023 10:19 PM CDT Rule Out COVID-19 09/29/2023 09/29/2023 09/29/2023 3:47 PM PROJECT MGR Assessment Noted Time PHQ-9 Depression Total Score: 8 02/07/20 23 10:22 AM CDT documented as of this encounter Care Teams C Java Developer Relationship Specialty Start Date End Date Pauline Augustine APRN LITHOGRAPHIC PRESS OPERATOR APPRENTICE [address] [place] [address] PCP - General Nurse Practitioner - Family 01/25/19 Pauline Augustine APRN LITHOGRAPHIC PRESS OPERATOR APPRENTICE [address] [place] [address] Assigned PCP 07/14/21 Kendrick Landry MD [address] [place] [address] Critical Care 06/27/22 Kendrick Landry MD [address] [place] [address] Critical Care 06/27/22 Nydia Murphy, [facility] Community Health Worker Primary Care - CC 10/04/2410/06/24 documented as of this encounter
--- OUTSIDE RECORDS SUMMARY | 2024-12-02 20:13 | XMS_ITS | Encounter Summary ---
Author Organization [facility] Address [address] [place] [address]. [place] [address] Care Team Providers Care Bushel Girl Name Role Phone Pauline Augustine APRN CAKE INSPECTOR Primary Care Provider + Pauline Augustine APRN CAKE INSPECTOR Unavailable [phone] Pauline Augustine APRN CAKE INSPECTOR Unavailable [phone] Kendrick Landry MD Unavailable [phone] Kendrick Landry MD Unavailable [phone] Nydia Murphy [facility] Unavailable [phone] Reason for Visit * Reason Onset Date Comments Refill Request 01/15/2021 escitalopram (LE XAPRO) 20 MG tablet Encounter Details Date Type Department Care Team (Late st Contact Info) Description 01/15/2021 Refill [facility] [address] [place] [address] Pauline Augustine APRN CAKE INSPECTOR [address] [place] [address] Refill Request (escitalopram (LEXAPRO) 20 MG tablet) [...] on file Legal Sex Female 4:25 AM FILM CUTTER Gender Identity Not on file Sexual Orientation Straight 09/24/2021 4: 08 PM FILM CUTTER 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 Emilia Kessler RN on 01/17/2021 at 8:57 AM documented in this encounter Plan of Treatment Not on file documented as of this encounter Visit Diagnoses Diagnosis Adjustment disorder with mixed anxiety and depressed mood documented in this encounter Additional Health Concerns Infection Onset Date Last Indicated Resolved Time Rule Out COVID-06/19/2023 06/19/2023 06/19/2023 10:19 PM CDT Rule Out COVID-19 09/29/2023 09/29/2023 09/29/2023 3:47 PM FILM CUTTER Assessment Noted Time PHQ-9 Depression Total Score: 0 08/20/20 20 1:04 PM FILM CUTTER documented as of this encounter Care Teams Bushel Girl Relationship Specialty Start Date End Date Pauline Augustine APRN CAKE INSPECTOR [address] [place] [address] PCP - General Nurse Practitioner - Family 01/25/19 Pauline Augustine APRN CAKE INSPECTOR [address] [place] [address] Assigned PCP 08/26/20 07/13/21 Pauline Augustine APRN CAKE INSPECTOR [address] [place] [address] Assigned PCP 07/14/21 Kendrick Landry MD [address] [place] [address] Critical Care 06/27/22 Kendrick Landry MD [address] [place] [address] Critical Care 06/27/22 Nydia Murphy, [facility] Community Health Worker Primary Care - CC 10/04/2410/06/24 documented as of this encounter
--- OUTSIDE RECORDS SUMMARY | 2024-12-02 20:13 | XMS_ITS | Encounter Summary ---
Author Organization [facility] Address [address] [place] [address]. [place] [address] Care Team Providers Care Library Technician Name Role Phone Pauline Augustine APRN SEW ON OPERATOR Primary Care Provider + Pauline Augustine APRN SEW ON OPERATOR Unavailable [phone] Pauline Augustine APRN SEW ON OPERATOR Unavailable [phone] Kendrick Landry MD Unavailable [phone] Kendrick Landry MD Unavailable [phone] Nydia Murphy [facility] Unavailable [phone] Reason for Visit * Reason Comments Medication Refill Encounter Details Date Type Department Care Team (Late st Contact Info) Description 07/13/2021 Refill [facility] [address] [place] [address] Pauline Augustine APRN SEW ON OPERATOR [address] [place] [address] Medication Refill Social History Tobacco Use Types Packs/Day Years Used Date Smoking Tobacco: Never Smokeless Tobacco: Never Alcohol Use Standard Drinks/Week Comments No 0 (1 standard drink = 0.6 oz pur e alcohol) PHQ-2 Answer Date Recorded PHQ-2 Score 2 07/01/2021 Comments No Sex and Gender Information Value Date Recorded Sex Assigned at Not on file Legal Sex Female 4:25 AM BUILDER'S LABOURER Gender Identity Not on file Sexual Orientation Straight 09/24/2021 4: 08 PM BUILDER'S LABOURER 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 No / Unsure 07/01/2021 10:44 AM CDT documented as of this encounter Miscellaneous Notes * Telephone Encounter - Shari Martínez, RN - 07/15/2021 1:20 PM CDT This is a duplicate refill request for lexapro - refills sent 07/01/21 to the same pharmacy. documented in this encounter Plan of Treatment Not on file documented as of this encounter Visit Diagnoses Diagnosis Adjustment disorder with mixed anxiety and depressed mood documented in this encounter Additional Health Concerns Infection Onset Date Last Indicated Resolved Time Rule Out COVID-19 06/19/2023 06/19/2023 06/19/2023 10:19 PM CDT Rule Out COVID-19 09/29/2023 09/29/2023 09/29/2023 3:47 PM BUILDER'S LABOURER Assessment Noted Time PHQ-9 Depression Total Score: 11 021 11:56 AM CDT documented as of this encounter Care Teams Library Technician Relationship Specialty Start Date End Date Pauline Augustine APRN SEW ON OPERATOR [address] [place] [address] PCP - General Nurse Practitioner - Family 01/25/19 Pauline Augustine APRN SEW ON OPERATOR [address] [place] [address] Assigned PCP 08/26/20 07/13/21 Pauline Augustine APRN SEW ON OPERATOR [address] [place] [address] Assigned PCP 07/14/21 Kendrick Landry MD [address] [place] [address] Critical Care 06/27/22 Kendrick Landry MD [address] [place] [address] Critical Care 06/27/22 Nydia Murphy, W Community Health Worker Primary Care - CC 10/04/2410/06/24 documented as of this encounter
--- OUTSIDE RECORDS SUMMARY | 2024-12-02 20:13 | XMS_ITS | Encounter Summary ---
Author Organization [facility] Address [address] [place] [address] Care Team Providers Care Repair Armature Winder Helper Name Role Phone Nik Dumont MD Primary Care Provider + [phone] Rajani Rodriguez APRN CREDIT COLLECTIONS CLERK Unavailable Mamadou Jiang-C Unavailable +[phone] Rajani Rodriguez APRN CREDIT COLLECTIONS CLERK Unavailable Mamadou Jiang-C Unavailable +[phone] Pauline Augustine RN PROVIDER RELATIONS CREDIT COLLECTIONS CLERK Unavailable + [phone] Pauline Augustine RN PROVIDER RELATIONS CREDIT COLLECTIONS CLERK Primary Care Provider + Mamadou Jiang PA-C Unavailable + Pauline Augustine APRN CREDIT COLLECTIONS CLERK Unavailable +00 Pauline Augustine APRN CREDIT COLLECTIONS CLERK Unavailable +00 Kendrick Landry MD Unavailable [phone] Kendrick Landry MD Unavailable [phone] Nydia Murphy [facility] Unavailable [phone] Encounter Details Date Type Department Care Team (Late st Contact Info) Description 04/25/2008 [facility] Medical Advice [address] [address] Conner Choudhary Social History Tobacco Use Types Packs/Day Years Used Date Smoking Tobacco: Never Alcohol Use Standard Drinks/Week Comments No 0 (1 standard drink = 0.6 oz pur e alcohol) Comments No Sex and Gender Information Value Date Recorded Sex Assigned at Not on file Legal Sex Female 4:25 AM SHEET PILE HAMMER OPERATOR Gender Identity Not on file Sexual Orientation Straight 09/24/2021 4: 08 PM SHEET PILE HAMMER OPERATOR documented as of this encounter Plan of Treatment Not on file documented as of this encounter Visit Diagnoses Not on filedocumented in this encounter Additional Health Concerns Infection Onset Date Last Indicated Resolved Time Rule Out COVID-19 06/19/2023 06/19/2023 06/19/2023 10:19 PM CDT Rule Out COVID-19 09/29/2023 09/29/2023 09/29/2023 3:47 PM SHEET PILE HAMMER OPERATOR documented as of this encounter Care Teams Repair Armature Winder Helper Relationship Specialty Start Date End Date Nik Dumont MD [address] [address] PCP - General 07/18/02 01/24/19 Rajani Rodriguez APRN CREDIT COLLECTIONS CLERK [address] [place] [address] [place] [address] PCP - Assigned PCP 04/25/18 10/30/18 Mamadou Jiang PA-C [address] [place] [address] PCP - Assigned PCP 10/31/18 11/30/18 Pauline Augustine APRN CREDIT COLLECTIONS CLERK [address] [place] [address] PCP - General Nurse Practitioner - Family 01/25/19 Rajani Rodriguez APRN CREDIT COLLECTIONS CLERK [address] [place] [address] [place] [address] Assigned PCP 04/25/18 10/30/18 Mamadou Jiang PA-C [address] [place] [address] Assigned PCP 10/31/18 01/22/19 Pauline Augustine APRN CREDIT COLLECTIONS CLERK [address] [place] [address] Assigned PCP 01/23/19 03/24/20 Mamadou Jiang PA-C [address] [place] [address] Assigned PCP 03/25/20 08/25/20 Pauline Augustine APRN CREDIT COLLECTIONS CLERK [address] [place] [address] Assigned PCP 08/26/20 07/13/21 Pauline Augustine APRN CREDIT COLLECTIONS CLERK [address] [place] [address] Assigned PCP 07/14/21 eKndrick Landry MD [address] [place] [address] Critical Care 06/27/22 Kendrick Landry MD [address] [place] [address] Critical Care 06/27/22 Nydia Murphy, [facility] Community Health Worker Primary Care - CC 10/04/2410/06/24 documented as of this encounter
--- OUTSIDE RECORDS SUMMARY | 2024-12-02 20:13 | XMS_ITS | Encounter Summary ---
Author Organization [facility] Address [address] [place] [address] Care Team Providers Care Shelving Supervisor Name Role Phone Pauline Augustine APRN REAL ESTATE OPERATIONS MANAGER Primary Care Provider + Pauline Augustine APRN REAL ESTATE OPERATIONS MANAGER Unavailable [phone] Kendrick Landry MD Unavailable [phone] Kendrick Landry MD Unavailable [phone] Nydia Murphy CHW Unavailable [phone] Encounter Details Date Type Department Care Team (Late st Contact Info) Description 09/04/2021 [facility] Medical Advice [address] [address] Ulysses Diana Social History Tobacco Use Types Packs/Day Years Used Date Smoking Tobacco: Never Smokeless Tobacco: Never Alcohol Use Standard Drinks/Week Comments No 0 (1 standard drink = 0.6 oz pur e alcohol) PHQ-2 Answer Date Recorded PHQ-2 Score 2 07/01/2021 Comments No Sex and Gender Information Value Date Recorded Sex Assigned at Not on file Legal Sex Female 4:25 AM MEDICAL ENGINEER Gender Identity Not on file Sexual Orientation Straight 09/24/2021 4: 08 PM MEDICAL ENGINEER Occupation Industry Job Start Date Job End [...] Out COVID-19 09/29/2023 09/29/2023 09/29/2023 3:47 PM MEDICAL ENGINEER Assessment Noted Time PHQ-9 Depression Total Score: 11 021 11:56 AM CDT documented as of this encounter Care Teams Shelving Supervisor Relationship Specialty Start Date End Date Pauline Augustine APRN REAL ESTATE OPERATIONS MANAGER [address] [place] [address] PCP - General Nurse Practitioner - Family 01/25/19 Pauline Augustine APRN REAL ESTATE OPERATIONS MANAGER [address] [facility] [place] [address] Assigned PCP 07/14/21 Kendrick Landry MD [address] [place], [place] [address] Critical Care 06/27/22 Kendrick Landry MD [address] [place], [place] [address] Critical Care 06/27/22 Nydia Murphy, [facility] Community Health Worker Primary Care - CC 10/04/2410/06/24 documented as of this encounter
--- OUTSIDE RECORDS SUMMARY | 2024-12-02 20:13 | XMS_ITS | Encounter Summary ---
Author Organization [place] Address [address] [place] [address] Care Team Providers Care Benefits Clerk Name Role Phone Nik Dumont MD Primary Care Provider + [phone] Rajani Rodriguez APRN AQUACULTURE FARM MANAGER Unavailable Mamadou Jiang-C Unavailable +[phone] ShawnRajani Rocha APRN AQUACULTURE FARM MANAGER Unavailable Mamadou Jiang-C Unavailable +[phone] Pauline Augustine CELLULAR EQUIPMENT REPAIRER AQUACULTURE FARM MANAGER Unavailable + Pauline Augustine CELLULAR EQUIPMENT REPAIRER AQUACULTURE FARM MANAGER Primary Care Provider + Mamadou Jiang PA-C Unavailable + Pauline Augustine APRN AQUACULTURE FARM MANAGER Unavailable + Pauline Augustine APRN AQUACULTURE FARM MANAGER Unavailable + Kendrick Landry MD Unavailable +[phone] Kendrick Landry MD Unavailable +[phone] Nydia Murphy [facility] Unavailable +[phone] Encounter Details Date Type Department Care Team (Late st Contact Info) Description 09/24/2017 [facility] [address] [address] Nury Amanda, RN Social History Tobacco Use Types Packs/Day Years Used Date Smoking Tobacco: Never Smokeless Tobacco: Never Alcohol Use Standard Drinks/Week Comments No 0 (1 standard drink = 0.6 oz pur e alcohol) Comments No Sex and Gender Information Value Date Recorded Sex Assigned at Not on file Legal Sex Female 4:25 AM ACCOUNTANT TAX Gender Identity Not on file Sexual Orientation Straight 09/24/2021 4: 08 PM ACCOUNTANT TAX Occupation Industry Job Start Date Job End [...] Out COVID-19 09/29/2023 09/29/2023 09/29/2023 3:47 PM ACCOUNTANT TAX Assessment Noted Time PHQ-9 Depression Total Score: 4 04/04/20 17 7:28 AM CDT documented as of this encounter Care Teams Benefits Clerk Relationship Specialty Start Date End Date Nik Dumont MD [address] [place] [address] PCP - General 07/18/02 01/24/19 Rajani Rodriguez APRN AQUACULTURE FARM MANAGER [address] [place] [address] [place] [address] PCP - Assigned PCP 04/25/18 10/30/18 Mamadou Jiang PA-C [address] [place] [address] PCP - Assigned PCP 10/31/18 11/30/18 Pauline Augustine APRN AQUACULTURE FARM MANAGER [address] [place] [address] PCP - General Nurse Practitioner - Family 01/25/19 Rajani Rodriguez APRN AQUACULTURE FARM MANAGER [address] [place] [address] [place] [address] Assigned PCP 04/25/18 10/30/18 Mamadou Jiang PA-C [address] [place] [address] Assigned PCP 10/31/18 01/22/19 Pauline Augustine APRN AQUACULTURE FARM MANAGER [address] [place] [address] Assigned PCP 01/23/19 03/24/20 Mamadou Jiang PA-C [address] [place] [address] Assigned PCP 03/25/20 08/25/20 Pauline Augustine APRN AQUACULTURE FARM MANAGER [address] [place] [address] Assigned PCP 08/26/20 07/13/21 Pauline Augustine APRN AQUACULTURE FARM MANAGER [address] [place] [address] Assigned PCP 07/14/21 Kendrick Landry MD 9 [place] [address] Critical Care 06/27/22 Kendrick Landry MD 9 [place] [address] Critical Care 06/27/22 Nydia Murpyh, W Community Health Worker Primary Care - CC 10/04/2410/06/24 documented as of this encounter
--- OUTSIDE RECORDS SUMMARY | 2024-12-02 20:13 | XMS_ITS | Encounter Summary ---
Author Organization [place] Address [address] [place] [address]. [place] [address] Care Team Providers Care Electronics Processing Supervisor Name Role Phone Pauline Augustine APRN TOBACCO FEEDER CATCHER Primary Care Provider + Pauline Augustine APRN TOBACCO FEEDER CATCHER Unavailable +[phone] Kendrick Landry MD Unavailable [phone] Kendrcik Landry MD Unavailable [phone] Nydia Murphy CH[facility] Unavailable [phone] Reason for Visit * Reason Onset Date Comments Refill Request 12/31/2021 Encounter Details Date Type Department Care Team (Late st Contact Info) Description 12/31/2021 MyC Refill [facility] [address] [place] [address] Pauline Augustine APRN TOBACCO FEEDER CATCHER [address] [place] [address] Refill Request Social History Tobacco Use Types Packs/Day Years Used Date Smoking Tobacco: Never Smokeless Tobacco: Never Alcohol Use Standard Drinks/Week Comments No 0 (1 standard drink = 0.6 oz pur e alcohol) PHQ-2 Answer Date Recorded PHQ-2 Score 2 09/30/2021 Comments No Sex and Gender Information Value Date Recorded Sex Assigned at Not on file Legal Sex Female 4:25 AM REVENUE COORDINATOR Gender Identity Not on file Sexual Orientation Straight 09/24/2021 4: 08 PM REVENUE COORDINATOR 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 Please assist with scheduling virtual appt. I did send in one month supply so she is not out of medication. Pauline Augustine CNP * Telephone Encounter - Ulysses Diana - 01/02/2022 2:30 PM CDT Patient states she is out of medication. Can anyone on the care team fill this? * Telephone Encounter - Kyara Turk RN - 01/01/2022 2:01 PM CDT Routing refill request to provider for review/approval because: PHQ-9 and ROSEMARIE-7 elevated. PHQ 08/20/2020 07/01/2021 09/30/2021 PHQ-9 Total Score 0 11 7 Q9: Thoughts of better off /self-harm past 2 weeks Not at all Not at all Not at all ROSEMARIE-7 SCORE 08/20/2020 07/01/2021 09/30/2021 Total Score - - - Total Score 0 7 6 Kyara Turk RN documented in this encounter Plan of Treatment Not on file documented as of this encounter Visit Diagnoses Diagnosis Adjustment disorder with mixed anxiety and depressed mood documented in this encounter Additional Health Concerns Infection Onset Date Last Indicated Resolved Time Rule Out COVID-19 06/19/2023 06/19/2023 06/19/2023 10:19 PM CDT Rule Out COVID-19 09/29/2023 09/29/2023 09/29/2023 3:47 PM REVENUE COORDINATOR Assessment Noted Time PHQ-9 Depression Total Score: 7 09/30/19 2:53 PM REVENUE COORDINATOR documented as of this encounter Care Teams Electronics Processing Supervisor Relationship Specialty Start Date End Date Pauline Augustine APRN CNP [address] [place] [address] PCP - General Nurse Practitioner - Family 01/25/19 Pauline Augustine APRN TOBACCO FEEDER CATCHER [address] [facility] [place] [address] Assigned PCP 07/14/21 Kendrick Landry MD [address] [place] [address] Critical Care 06/27/22 Kendrick Landry MD [address] [place] [address] 400315 Critical Care 06/27/22 Nydia Murphy, [facility] Community Health Worker Primary Care - CC 10/04/2410/06/24 documented as of this encounter
--- OUTSIDE RECORDS SUMMARY | 2024-12-02 20:13 | XMS_ITS | Encounter Summary ---
Author Organization [place] Address [address] [place] [address] Care Team Providers Care Beam Builder Name Role Phone Nik Dumont MD Primary Care Provider + [phone] ShawnRajani Rocha APRN MARITIME ENGINEER Unavailable Mamadou Jiang PA-C Unavailable + Shawn-Rajani Quintanilla APRN MARITIME ENGINEER Unavailable Mamadou Jiang PA-C Unavailable + Pauline Augustine SHOWPLACE MANAGER MARITIME ENGINEER Unavailable + Pauline Augustine SHOWPLACE MANAGER MARITIME ENGINEER Primary Care Provider + Mamadou Jiang PA-C Unavailable + Pauline Augustine APRN MARITIME ENGINEER Unavailable +00 Pauline Augustine APRN MARITIME ENGINEER Unavailable +00 Kendrick Landry MD Unavailable [phone] Kendrick Landry MD Unavailable [phone] Nydia Murphy [facility] Unavailable [phone] Encounter Details Date Type Department Care Team (Late st Contact Info) Description 08/01/2012 [facility] [address] [place] [address] Case Ibarra MD RETIRED Social History Tobacco Use Types Packs/Day Years Used Date Smoking Tobacco: Never Smokeless Tobacco: Never Alcohol Use Standard Drinks/Week Comments No 0 (1 standard drink = 0.6 oz pur e alcohol) Comments No Sex and Gender Information Value Date Recorded Sex Assigned at Not on file Legal Sex Female 4:25 AM CUFF SETTER Gender Identity Not on file Sexual Orientation Straight 09/24/2021 4: 08 PM CUFF SETTER Occupation Industry Job Start Date Job End [...] Rule Out COVID-09/29/2023 09/29/2023 09/29/2023 3:47 PM CUFF SETTER documented as of this encounter Care Teams Beam Builder Relationship Specialty Start Date End Date Nik Dumont MD [address] [address] PCP - General 07/18/02 01/24/19 Rajani Rodriguez APRN MARITIME ENGINEER [address] [place] [address] [place] [address] PCP - Assigned PCP 04/25/18 10/30/18 Mamadou Jiang PA-C [address] [place] [address] PCP - Assigned PCP 10/31/18 11/30/18 Pauline Augustine APRN MARITIME ENGINEER [address] [place] [address] PCP - General Nurse Practitioner - Family 01/25/19 Rajani Rodriguez APRN MARITIME ENGINEER [address] [place] [address] [place] [address] Assigned PCP 04/25/18 10/30/18 Mamadou Jiang PA-C [address] [place], [place] 9245868 Assigned PCP 10/31/18 01/22/19 Pauline Augustine APRN MARITIME ENGINEER [address] [place], [place] 9356968 Assigned PCP 01/23/19 03/24/20 Mamadou Jiang PA-C [address] [place] [address] Assigned PCP 03/25/20 08/25/20 Pauline Augustine APRN MARITIME ENGINEER [address] [place], [place] 2008768 Assigned PCP 08/26/20 07/13/21 Pauline Augustine APRN MARITIME ENGINEER [address] [place], [place] 2538568 Assigned PCP 07/14/21 Kendrick Landry MD 9 [place] [address] Critical Care 06/27/22 Kendrick Landry MD [address] [place] [address] Critical Care 06/27/22 Nydia Murphy, W Community Health Worker Primary Care - CC 10/04/2410/06/24 documented as of this encounter
--- OUTSIDE RECORDS SUMMARY | 2024-12-02 20:13 | XMS_ITS | Encounter Summary ---
Author Organization [place] Address [address] [place] [address]. [place] [address] Care Team Providers Care Mds Coordinator Name Role Phone Pauline Augustine APRN REWINDER OPERATOR Primary Care Provider + Pauline Augustine APRN REWINDER OPERATOR Unavailable [phone] Kendrick Landry MD Unavailable [phone] Kendrick Landry MD Unavailable +[phone] Nydia Murphy CHW Unavailable [phone] Reason for Visit * Reason Onset Date Comments Refill Request 12/04/2021 escitalopram (LE XAPRO) 20 MG tablet Encounter Details Date Type Department Care Team (Late st Contact Info) Description 12/04/2021 Refill [facility] [address] [place] [address] Pauline Augustine APRN REWINDER OPERATOR [address] [place] [address] Refill Request (escitalopram (LEXAPRO) 20 [...] on file Legal Sex Female 4:25 AM MORTGAGE COUNSELOR Gender Identity Not on file Sexual Orientation Straight 09/24/2021 4: 08 PM MORTGAGE COUNSELOR 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 Should not be out of lexapro quite yet and will need appt for follow-up. Please help with scheduling virtual or in person appt. Pauline Augustine CNP * Telephone Encounter - Kyara Turk RN - 12/04/2021 3:51 PM CST Routing refill request to provider for review/approval because: PHQ-9 and ROSEMARIE-7 elevated. PHQ 08/20/2020 07/01/2021 09/30/2021 PHQ-9 Total Score 0 11 7 Q9: Thoughts of better off /self-harm past 2 weeks Not at all Not at all Not at all ROSEMARIE-7 SCORE 08/20/2020 07/01/2021 09/30/2021 Total Score - - - Total Score 0 7 6 Kyara Turk RN GAGE COUNSELOR documented in this encounter Plan of Treatment Not on file documented as of this encounter Visit Diagnoses Diagnosis Adjustment disorder with mixed anxiety and depressed mood documented in this encounter Additional Health Concerns Infection Onset Date Last Indicated Resolved Time Rule Out COVID-19 06/19/2023 06/19/2023 06/19/2023 10:19 PM CDT Rule Out COVID-19 09/29/2023 09/29/2023 09/29/2023 3:47 PM MORTGAGE COUNSELOR Assessment Noted Time PHQ-9 Depression Total Score: 7 09/30/19 2:53 PM MORTGAGE COUNSELOR documented as of this encounter Care Teams Mds Coordinator Relationship Specialty Start Date End Date Pauline Augustine APRN CNP [address] [place] [address] PCP - General Nurse Practitioner - Family 01/25/19 Pauline Augustine APRN [facility] [address] [place] [address] Assigned PCP 07/14/21 Kendrick Landry MD 9 [place], [place] 502675 Critical Care 06/27/22 Kendrick Landry MD 9 [place], [place] 835845 Critical Care 06/27/22 Nydia Murphy, [facility] Community Health Worker Primary Care - CC 10/04/2410/06/24 documented as of this encounter
--- OUTSIDE RECORDS SUMMARY | 2024-12-02 20:13 | XMS_ITS | Encounter Summary ---
Author Organization [place] Address [address] [place] [address]. [place] [address] Care Team Providers Care Parimutuel Ticket Seller Name Role Phone Pauline Augustine APRN GIS MAPPING TECHNICIAN Primary Care Provider + Pauline Augustine APRN GIS MAPPING TECHNICIAN Unavailable [phone] Kendrick Landry MD Unavailable [phone] Kendrick Landry MD Unavailable [phone] Nydia Murphy CHW Unavailable [phone] Encounter Details Date Type Department Care Team (Late st Contact Info) Description 03/04/2023 [facility] Advice [facility] [address] [place] [address] Pauline Augustine APRN GIS MAPPING TECHNICIAN [address] [place] [address] Social History Tobacco Use Types [...] on file Legal Sex Female 4:25 AM CONTRACT TECHNICIAN Gender Identity Not on file Sexual Orientation Straight 09/24/2021 4: 08 PM CONTRACT TECHNICIAN 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 No / Unsure 02/06/2023 8:41 AM CDT documented as of this encounter Miscellaneous Notes * Telephone Encounter - Vanna Aguilera RN - 03/06/2023 2:17 PM CDT Attempted to call patient x 2. Busy signal. Sent [employer] message. Vanna Aguilera RN * Telephone Encounter - Pauline Augustine APRN CNP - 03/06/2023 11:35 AM CDT Last month we increased her wellbutrin. If she thinks this is worsening her anxiety I can decrease her dose back down. Let me know if that is what she is trying to tell me. Due to trial/failure of several meds it is time for her to follow-up with mental health to help with getting her on the right combo of meds. Pauline Augustine CNP * Telephone Encounter - Shari Martínez RN - 03/05/2023 8:19 AM CDT Will forward to Pauline Augustine. documented in this encounter Plan of Treatment Not on file documented as of this encounter Visit Diagnoses Not on filedocumented in this encounter Additional Health Concerns Infection Onset Date Last Indicated Resolved Time Rule Out COVID-19 06/19/2023 06/19/2023 06/19/2023 10:19 PM CDT Rule Out COVID-19 09/29/2023 09/29/2023 09/29/2023 3:47 PM CONTRACT TECHNICIAN Assessment Noted Time PHQ-9 Depression Total Score: 8 02/07/20 10:22 AM CDT documented as of this encounter Care Teams Parimutuel Ticket Seller Relationship Specialty Start Date End Date Pauline Augustine APRN GIS MAPPING TECHNICIAN [address] [place] [address] PCP - General Nurse Practitioner - Family 01/25/19 Pauline Augustine APRN CNP [address] [place] [address] Assigned PCP 07/14/21 Kendrick Landry MD [address] [place] [address] 004745 Critical Care 06/27/22 Kendrick aLndry MD [address] [place] [address] [id number] Critical Care 06/27/22 Nydia Murphy, [facility] Community Health Worker Primary Care - CC 10/04/2410/06/24 documented as of this encounter
--- OUTSIDE RECORDS SUMMARY | 2024-12-02 20:13 | XMS_ITS | Encounter Summary ---
Author Organization [place] Address [address] [place] [address] Care Team Providers Care Materials Management Clerk Name Role Phone Nik Dumont MD Primary Care Provider + [phone] Rajani Rodriguez MENDING CARRIER EXPERIENCE PLANNING STRATEGIST Unavailable Mamadou Jiang PA-C Unavailable + Shawn-Rajani Quintanilla APRN EXPERIENCE PLANNING STRATEGIST Unavailable Mamadou Jiang PA-C Unavailable + Pauline Augustine MENDING CARRIER EXPERIENCE PLANNING STRATEGIST Unavailable + Pauline Augustine MENDING CARRIER EXPERIENCE PLANNING STRATEGIST Primary Care Provider + Mamadou Jiang PA-C Unavailable + Pauline Augustine MENDING CARRIER EXPERIENCE PLANNING STRATEGIST Unavailable +00 Pauline Augustine MENDING CARRIER EXPERIENCE PLANNING STRATEGIST Unavailable + Kendrick Landry MD Unavailable +[phone] Kendrick Landry MD Unavailable [phone] Nydia Murphy [facility] Unavailable +[phone] Encounter Details Date Type Department Care Team (Late st Contact Info) Description 08/04/2011 [facility] [address] [address] Nik Dumont MD [address] [address] Social History Tobacco Use Types Packs/Day Years Used Date Smoking Tobacco: Never Smokeless Tobacco: Never Alcohol Use Standard Drinks/Week Comments No 0 (1 standard drink = 0.6 oz pur e alcohol) Comments No Sex and Gender Information Value Date Recorded Sex Assigned at Not on file Legal Sex Female 4:25 AM FINE CHEMICALS OPERATOR Gender Identity Not on file Sexual Orientation Straight 09/24/2021 4: 08 PM FINE CHEMICALS OPERATOR Occupation Industry Job Start Date Job [...] Rule Out COVID-09/29/2023 09/29/2023 09/29/2023 3:47 PM FINE CHEMICALS OPERATOR documented as of this encounter Care Teams Materials Management Clerk Relationship Specialty Start Date End Date Nik Dumont MD [address] [place] [address] PCP - General 07/18/02 01/24/19 Rajani Rodriguez APRN EXPERIENCE PLANNING STRATEGIST [address] [place] [address] [place] [address] PCP - Assigned PCP 04/25/18 10/30/18 Mamadou Jiang PA-C [address] [place] [address] PCP - Assigned PCP 10/31/18 11/30/18 Pauline Augustine APRN EXPERIENCE PLANNING STRATEGIST [address] [place] [address] PCP - General Nurse Practitioner - Family 01/25/19 Rajani Rodriguez APRN EXPERIENCE PLANNING STRATEGIST [address] [place] [address] [place] [address] Assigned PCP 04/25/18 10/30/18 Mamadou Jiang PA-C [address] [place] [address] Assigned PCP 10/31/18 01/22/19 Pauline Augustine APRN EXPERIENCE PLANNING STRATEGIST [address] [place] [address] Assigned PCP 01/23/19 03/24/20 Mamadou Jiang PA-C [address] [place] [address] Assigned PCP 03/25/20 08/25/20 Pauline Augustine APRN EXPERIENCE PLANNING STRATEGIST [address] [place] [address] Assigned PCP 08/26/20 07/13/21 Pauline Augustine APRN EXPERIENCE PLANNING STRATEGIST [address] [place] [address] Assigned PCP 07/14/21 Kendrick Landry MD [address] [place] [address] Critical Care 06/27/22 Kendrick Landry MD 9 [place] [address] Critical Care 06/27/22 Nydia Murphy, [facility] Community Health Worker Primary Care - CC 10/04/2410/06/24 documented as of this encounter
--- OUTSIDE RECORDS SUMMARY | 2024-12-02 20:14 | XMS_ITS | Encounter Summary ---
Author Organization [place] Address [address] [place] [address] Care Team Providers Care Transmissions Systems Operator Name Role Phone Pauline Augustine APRN CAN REPAIRER Primary Care Provider + Pauline Augustine APRN CAN REPAIRER Unavailable +[phone] Kendrick Landry MD Unavailable [phone] Kendrick Landry MD Unavailable +[phone] Nydia Murphy CHW Unavailable [phone] Encounter Details Date Type Department Care Team (Late st Contact Info) Description 07/19/2024 MyC Medical Advice [address] [address] Joann Bernal Social History Tobacco Use Types Packs/Day Years [...] on file Legal Sex Female 4:25 AM SCRAP DROP OPERATOR Gender Identity Not on file Sexual Orientation Straight 09/24/2021 4: 08 PM SCRAP DROP OPERATOR Occupation Industry Job Start Date Job [...] documented as of this encounter Care Teams Transmissions Systems Operator Relationship Specialty Start Date End Date Pauline Augustine APRN CAN REPAIRER [address] [place] [address] PCP - General Nurse Practitioner - Family 01/25/19 Pauline Augustine APRN CAN REPAIRER [address] [place] [address] Assigned PCP 07/14/21 Kendrick Landry MD [address] [place] [id number] Critical Care 06/27/22 Kendrick Landry MD 909 [place], [place] 316745 Critical Care 06/27/22 Nydia Murphy, W Community Health Worker Primary Care - CC 10/04/2410/06/24 documented as of this encounter
--- OUTSIDE RECORDS SUMMARY | 2024-12-02 20:14 | XMS_ITS | Encounter Summary ---
Author Organization [place] Address [address] [place] [address] Care Team Providers Care District Wildlife Manager Name Role Phone Nik Dumont MD Primary Care Provider + [phone] Rajani Rodriguez APRN BUGGY RUNNER Unavailable Mamadou Jiang-C Unavailable +[phone] ShawnRajnai Rocha APRN BUGGY RUNNER Unavailable Mamadou Jiang-C Unavailable +[phone] Pauline Augustine SCAFFOLD BUILDER BUGGY RUNNER Unavailable +00 Pauline Augustine SCAFFOLD BUILDER BUGGY RUNNER Primary Care Provider + Mamadou Jiang PA-C Unavailable +00 Pauline Augustine APRN BUGGY RUNNER Unavailable +00 Pauline Augustine APRN BUGGY RUNNER Unavailable +00 Kendrick Landry MD Unavailable [phone] Kendrick Landry MD Unavailable +[phone] Nydia Murphy [facility] Unavailable +[phone] Reason for Visit * Reason Onset Date Comments Refill Request 05/25/2013 araceli Encounter Details Date Type Department Care Team (Late st Contact Info) Description 05/25/2013 My[facility] Medical Advice [address] [address] Conner Choudhary Refill Request (araceli) Social History Tobacco Use Types Packs/Day Years Used Date Smoking Tobacco: Never Smokeless Tobacco: Never Alcohol Use Standard Drinks/Week Comments No 0 (1 standard drink = 0.6 oz pur e alcohol) Comments No Sex and Gender Information Value Date Recorded Sex Assigned at Not on file Legal Sex Female 4:25 AM NEGATIVE CHECKER Gender Identity Not on file Sexual Orientation Straight 09/24/2021 4: 08 PM NEGATIVE CHECKER 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 Ashley Frazier RN documented in this encounter [...] Out COVID-19 09/29/2023 09/29/2023 09/29/2023 3:47 PM NEGATIVE CHECKER documented as of this encounter Care Teams District Wildlife Manager Relationship Specialty Start Date End Date Nik Dumont MD [address] [address] PCP - General 07/18/02 01/24/19 Rajani Rodriguez APRN BUGGY RUNNER [address] [facility] [place] [address] PCP - Assigned PCP 04/25/18 10/30/18 Mamadou Jiang PA-C [address] [place] [address] PCP - Assigned PCP 10/31/18 11/30/18 Pauline Augustine APRN BUGGY RUNNER [address] [place] [address] PCP - General Nurse Practitioner - Family 01/25/19 Rajani Rodriguez APRN BUGGY RUNNER [address] [facility] [place] [address] Assigned PCP 04/25/18 10/30/18 Mamadou Jiang PA-C [address] [place] [address] Assigned PCP 10/31/18 01/22/19 Pauline Augustine APRN BUGGY RUNNER [address] [place] [address] Assigned PCP 01/23/19 03/24/20 Mamadou Jiang PA-C [address] [place] [address] Assigned PCP 03/25/20 08/25/20 Pauline Augustine APRN BUGGY RUNNER [address] [place] [address] Assigned PCP 08/26/20 07/13/21 Pauline Augustine APRN BUGGY RUNNER [address] [place] [address] Assigned PCP 07/14/21 Kendrick Landry MD [address] [place] [address] Critical Care 06/27/22 Kendrick Landry MD 9 [place] [address] Critical Care 06/27/22 Nydia Murphy, W Community Health Worker Primary Care - CC 10/04/2410/06/24 documented as of this encounter
--- OUTSIDE RECORDS SUMMARY | 2024-12-02 20:14 | XMS_ITS | Encounter Summary ---
Author Organization [facility] Address [address] [place] [address] Care Team Providers Care Leather Dresser Name Role Phone Nik Dumont MD Primary Care Provider + [phone] ShawnRajani Rocha TIMBER TREATMENT PLANT OPERATOR YAM CURER Unavailable Mamadou Jiang PA-C Unavailable + Shawn-Rajani Quintanilla APRN YAM CURER Unavailable Mamadou Jiang PA-C Unavailable + Pauline Augustine TIMBER TREATMENT PLANT OPERATOR YAM CURER Unavailable + Pauline Augustine TIMBER TREATMENT PLANT OPERATOR YAM CURER Primary Care Provider + Mamadou Jiang PA-C Unavailable +00 Pauline Augustine TIMBER TREATMENT PLANT OPERATOR YAM CURER Unavailable +00 Pauline Augustine TIMBER TREATMENT PLANT OPERATOR YAM CURER Unavailable +00 Kendrick Landry MD Unavailable [phone] Kendrick Landry MD Unavailable [phone] Nydia Murphy [facility] Unavailable [phone] Encounter Details Date Type Department Care Team (Late st Contact Info) Description 02/22/2011 [facility] [address] [place] [phone] Sunday Justin MD NO INFO AVAILABLE 09/18/2022 [facility] Antepartum Outpatient Record Social History Tobacco Use Types Packs/Day Years Used Date Smoking Tobacco: Never Passive Smoke Exposure: Never Smokeless Tobacco: Never Alcohol Use Standard Drinks/Week Comments No 0 (1 standard drink = 0.6 oz pur e alcohol) Comments No Sex and Gender Information Value Date Recorded Sex Assigned at Not on file Legal Sex Female 4:25 AM BOOKMOBILE DRIVER Gender Identity Not on file Sexual Orientation Straight 09/24/2021 4: 08 PM BOOKMOBILE DRIVER 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 Not on file Not on file Not on file Not on file documented as of this encounter Plan of Treatment Not on file documented as of this encounter Visit Diagnoses Diagnosis [facility] Antepartum Outpatient Record- Primary documented in this encounter Additional Health Concerns Infection Onset Date Last Indicated Resolved Time Rule Out COVID-06/19/2023 06/19/2023 06/19/2023 10:19 PM CDT Rule Out COVID-09/29/2023 09/29/2023 09/29/2023 3:47 PM BOOKMOBILE DRIVER documented as of this encounter Care Teams Leather Dresser Relationship Specialty Start Date End Date Nik Dumont MD [address] [address] PCP - General 07/18/02 01/24/19 Rajani Rodriguez APRN YAM CURER [address] [place] [address] [place] [address] PCP - Assigned PCP 04/25/18 10/30/18 Mamadou Jiang PA-C [address] [place] [address] PCP - Assigned PCP 10/31/18 11/30/18 Pauline Augustine APRN YAM CURER [address] [place] [address] PCP - General Nurse Practitioner - Family 01/25/19 Rajani Rodriguez APRN YAM CURER [address] [place] [address] [place] [address] Assigned PCP 04/25/18 10/30/18 Mamadou Jiang PA-C [address] [place] [address] Assigned PCP 10/31/18 01/22/19 Pauline Augustine APRN YAM CURER [address] [place] [address] Assigned PCP 01/23/19 03/24/20 Mamadou Jiang PA-C [address] [place] [address] Assigned PCP 03/25/20 08/25/20 Pauline Augustine APRN YAM CURER [address] [place] [address] Assigned PCP 08/26/20 07/13/21 Pauline Augustine APRN YAM CURER [address] [place] [address] Assigned PCP 07/14/21 Kendrick Landry MD [address] [place] [address] Critical Care 06/27/22 Kendrick Landry MD [address] [place] [address] Critical Care 06/27/22 Nydia Murphy, [facility] Community Health Worker Primary Care - CC 10/04/2410/06/24 documented as of this encounter
--- OUTSIDE RECORDS SUMMARY | 2024-12-02 20:14 | XMS_ITS | Clinical Summary ---
Author Organization [facility] Address [address] [place] [address] Care Team Providers Care Credit Collection Specialist Name Role Phone Pauline Augustine APRN [employer] Primary Care Provider + Pauline Augustine APRN [employer] Unavailable [phone] Kendrick Landry MD Unavailable [phone] Kendrick Landry MD Unavailable [phone] Allergies Active Allergy Reactions Criticality Noted Date Comments Amoxicillin-Pot Clavulanate Nausea and Vomiting 11/04/2010 Cefdinir Anaphylaxis,Angioedema High 11/03/2022 Contrast Dye Swelling 02/28/2004 Iodine Swelling 02/28/2004 Morphine And Codeine 02/28/2004 hyperness Shrimp Shortness Of Breath High 10/16/2022 Medications fluticasone (FLONASE) 50 MCG/ACT spray [place] 1 spray into both nostrils daily Activ e EPINEPHrine (ANY BX GENERIC EQUIV) 0.3 MG/0.3ML injection 2-pack Inject 1 syringe intramuscularly as needed for other (Specify) (severe allergic reaction) 09/27/20 22 Active cetirizine (ZYRTEC) 10 MG tablet Take 10 mg by mouth Active fluticasone (FLOVENT HFA) 44 MCG/ACT inhalerIndicatio ns:Moderate persistent asthma without complication Inhale 1 puff into the lungs 2 times daily 10.6 g 1 02/07/20 23 Active albuterol (PROAIR HFA/PROVENTIL HFA/VENTOLIN HFA) 108 (90 Base) MCG/ACT inhalerIndicatio ns:Moderate persistent asthma without complication Inhale 2 puffs into the lungs every 6 hours as needed for shortness of breath (cough) 8.5 g 06/19/20 23 Active beclomethasone HFA (QVAR REDIHALER) 40 MCG/ACT inhalerIndicatio ns:Moderate persistent asthma without complication Inhale 1 puff into the lungs 2 times daily 10.6 g 07/29/20 23 Active escitalopram (LEXAPRO) 20 MG tabletIndication s:Adjustment disorder with mixed anxiety and depressed mood Take 1.5 tablets (30 mg) by mouth daily. ++NEEDS APPT FOR REFILLS++ 135 tablet 10/03/19 25 Active Active Problems Problem Noted Date Diagnosed Date Moderate persistent asthma without complication 03/18/2019 Adjustment disorder with mixed anxiety and depre ssed mood 03/18/2019 Nasal polyp 08/10/2017 Postcoital and contact bleeding 08/15/2015 Essure 03/21/2014 Overview (03/21/2014): Ref # : [id number] Lot # [id number] Shanice Bautista BANK GUARD Meningitis 06/21/2013 Hip pain 04/28/2011 CARDIOVASCULAR SCREENING; LDL GOAL LESS THAN 160 07/28/2010 Endometriosis of pelvic peritoneum 02/26/2007 Resolved Problems Problem Noted Date Diagnosed Date Resolved Date Lumbar radiculopathy 10/02/2014 015 Labor and delivery, indication for care 03/30/2013 05/16/2013 Contraception 03/23/2013 05/16/2013 Indication for care in labor or delivery 03/16/2013 05/16/2013 Low lying placenta without h emorrhage, antepartum 11/30/2012 01/07/2013 Encounter for supervision of other normal 08/09/2012 05/16/2013 Overview (07/30/2015): Diagnosis updated by automated process. Provider to review and confirm. depression 04/28/20112012 Threatened labor 02/12/2011 Encounter for supervision of other normal 08/12/2010 05/28/2011 Overview (07/30/2015): Diagnosis updated by automated process. Provider to review and confirm. Abdominal pain, right lower quadrant 10/12/2006 10/11/2007 Ovarian cyst 09/18/2006 02/26/2007 Overview (06/28/2015): Complex R Problem list name updated by automated process. Provider to review [email or web address] 09/10/2005 12/09/2005 Brachial neuritis or radiculitis 09/10/2005 12/09/2005 Overview (06/28/2015): Problem list name updated by automated process. Provider to review Female genital symptoms 03/28/2005 08/0 09/2004 Overview (06/28/2015): Problem list name updated by automated process. Provider to review Supervision of high-risk pre gnancy of young multigravida 09/21/2004 11/27/2004 Threatened premature labor, antepartum(644.03) 08/31/2004 10/14/2004 Encounter for supervision of other normal 03/07/2004 09/21/2004 Overview (07/30/2015): Diagnosis updated by automated process. Provider to review and confirm. Encounters Date Type Department Care Team Description 11/01/2024 [facility] Medical Advice [facility] [place] [address] [place] [phone] Pauline Augustine APRN CNP 10/25/2024 MyC Medical Advice [facility] [place] [address] [place] [phone] Daxa Rollins 10/20/2024 My[facility] Medical Advice [facility] [place] [address] [place] [phone] Stacy Landers 10/04/2024 MyC Medical Advice [facility] [place] [address] [place] [phone] Daxa Rollins 10/03/2024 MyC Medical Advice [facility] [place] [address] [place] [phone] Daxa Rollins Adjustment disorder with mixed anxiety and depressed mood; Moderate persistent asthma without complication 09/29/2024 MyC Medical Advice [facility] [address] [place] [phone] Pauline Augustine APRN CNP Adjustment disorder with mixed anxiety and depressed mood (Primary Dx) 09/27/2024 MyC Medical Advice [facility] [address] [place] [phone] Baldev Harrell PA-C 09/26/2024 Travel from Last 3 Months Immunizations Name Administration Dates Next Due DTaP, Unspecified 05/11/2013,03/20/2011,04/18/20 08 TDAP (Adacel,Boostrix) 03/20/2011 TDAP Vaccine (Adacel) 05/11/2013,04/18/2008 Family History Medical History Relation Comments Cancer Maternal Grandfather ? Cancer Maternal Grandmother ? Thyroid Disease Mother Cancer Paternal Grandfather colon Relation Status Comments Brother Alive Father Alive Maternal Grandfather Maternal Grandmother Mother Alive Paternal Grandfather Social History Tobacco Use Types Packs/Day Years Used Date Smoking Tobacco: Never Passive Smoke Exposure: Never Smokeless Tobacco: Never Tobacco Cessation:Counseling Given: Not Answered Alcohol Use Standard Drinks/Week Comments No 0 (1 standard drink = 0.6 oz pur e alcohol) PHQ-2 Answer Date Recorded PHQ-2 Score 1 08/23/2024 Adolescent Education Answer Date Record ed Getting [...] in an abandoned building, in an overnight prison, or couch-surfing.) Yes 07/29/2023 Are you worried [...] on file Legal Sex Female 4:25 AM CANDY SEPARATOR HARD Gender Identity Not on file Sexual Orientation Straight 09/24/2021 4: 08 PM CANDY SEPARATOR HARD 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 Not on file Not on file Not on file Not on file Last Filed Vital Signs Vital Sign Reading Time Taken Comments Blood Pressure 145/78 09/29/2023 6:20 PM CANDY SEPARATOR HARD Pulse 88 09/29/2023 6:20 PM CANDY SEPARATOR HARD Temperature 36.7 C (98 F) 09/29/2023 6:20 PM CANDY SEPARATOR HARD Respiratory Rate 20 09/29/2023 6:20 PM CANDY SEPARATOR HARD Oxygen Saturation 98% 09/29/2023 6:20 PM CANDY SEPARATOR HARD Inhaled Oxygen Concentration - - Weight 72.6 kg (160 lb) 02/06/2023 8:51 AM CDT Height 160.7 cm (5' 3.25) 02/06/2023 8:51 AM CD T Body Mass Index 28.12 02/06/2023 8:51 AM CDT Plan of Treatment Health Maintenance Due Date Last Done Comments ASTHMA ACTION PLAN 1981 MAMMO SCREENING 1981 Pneumococcal Vaccine: Pediatrics (0 to 5 Years) and At-Risk Patients (6 to 49 Years) (1 of 2 - PCV) 2000 DTAP/TDAP/TD IMMUNIZATION (7 - Td or Tdap) 05/11/2023 05/11/2013, 05/11/2013, 03/20/2011, Additional history exists ANNUAL REVIEW OF HM ORDERS 02/07/2024 02/06/2023 YEARLY PREVENTIVE VISIT 02/07/2024 02/07/20, 07/01/2021, 03/18/2019, Additional history exists INFLUENZA VACCINE (#1) 2024 07/01/2021 (Declin ed) PHQ-2 (once per calendar year) 2024 08/23/2024, 07/29/2023, 07/29/2023, Additional history exists ASTHMA CONTROL TEST 02/20/2025 08/23/2024, 07/29/2023, 02/06/2023, Additional history exists ROSEMARIE ASSESSMENT 03/27/2025 09/27/2024, 07/30, 07/29/2023, Additional history exists ADVANCE CARE PLANNING 07/01/2026 07/01/2021 GLUCOSE 09/29/2026 09/29/2023, 05/30, 10/16/2022, Additional history exists HPV TEST 02/07/2028 02/06/2023, 10/29/2017 LIPID 02/07/2028 02/06/2023, 03/18/2019 PAP 02/07/2028 02/06/2023, 09/2017, 08/15/2015, Additional history exists ZOSTER IMMUNIZATION (1 of 2) 2031 HIV SCREENING Completed 08/09/2012, 07/29, 10/16/2005, Additional history exists HEPATITIS C SCREENING Completed 02/06/2023 COVID-19 Vaccine Discontinued HEPATITIS B IMMUNIZATION Discontinued HPV IMMUNIZATION Aged Out No longer e ligible based on patient's age to complete this topic MENINGITIS IMMUNIZATION Aged Out No l onger eligible based on patient's age to complete this topic Procedures Procedure Name Priority Date/Time Associated Diagnosis Comments COMPREHENSIVE METABOLIC PANEL STAT 09/29/2023 3:03 PM CANDY SEPARATOR HARD HEPATITIS C SCREEN REFLEX TO HCV RNA QUANT AND GENOTYPE Routine 02/06/2023 10:01 AM CDT Need for hepatitis C screening test LIPID REFLEX TO DIRECT LDL PANEL Routine 02/06/2023 10:01 AM CDT Screening for hyperlipidemia GYNECOLOGIC CYTOLOGY Routine 02/06/2023 9:33 AM CDT Cervical cancer screening HPV HIGH RISK TYPES DNA CERVICAL Routine 02/06/2023 9:33 AM CDT Cervical cancer screening HIV 1 AND 2 ANTIBODY (QUEST) Routine 08/09/2012 9:24 AM CANDY SEPARATOR HARD Supervision of other normal from Last 3 Months or Most Recently Relevant to Health Maintenance Results * (ABNORMAL) Comprehensive metabolic panel (09/29/2023 3:03 PM CANDY SEPARATOR HARD) [facility] Sodium 138 135 - 145 mmol/L 09/29/2023 3:38 PM CANDY SEPARATOR HARD [facility] Comment:Reference intervals for this test were updated on 06/23/2023 to more accurately reflect our healthy population. There may be differences in the flagging of prior results with similar values performed with this method. Interpretation of those prior results can be made in the context of the updated reference intervals. Potassium 4.2 3.4 - 5.3 mmol/L 09/29/2023 3:38 PM CANDY SEPARATOR HARD [facility] Carbon Dioxide (CO2) 24 22 - 29 mmol/L 09/29/2023 3:38 PM CANDY SEPARATOR HARD [facility] Anion Gap 13 7 - 15 mmol/L 09/29/2023 3:38 PM CANDY SEPARATOR HARD [facility] Urea Nitrogen 5.7(L) 6.0 - 20.0 mg/dL 09/29/2023 3:38 PM CANDY SEPARATOR HARD [facility] Creatinine 0.69 0.51 - 0.95 mg/dL 09/29/2023 3:38 PM CANDY SEPARATOR HARD [facility] GFR Estimate >90 >60 mL/min/1. 73m2 09/29/2023 3:38 PM CANDY SEPARATOR HARD [facility] Calcium 9.8 8.6 - 10.0 mg/dL 09/29/2023 3:38 PM CANDY SEPARATOR HARD [facility] Chloride 101 98 - 107 mmol/L 09/29/2023 3:38 PM CANDY SEPARATOR HARD [facility] Glucose 121(H) 70 - 99 mg/dL 09/29/2023 3:38 PM CANDY SEPARATOR HARD [facility] Alkaline Phosphatase 49 40 - 150 U/L 09/29/2023 3:38 PM CANDY SEPARATOR HARD [facility] Comment:Reference intervals for this test were updated on 08/11/2023 to more accurately reflect our healthy population. There may be differences in the flagging of prior results with similar values performed with this method. Interpretation of those prior results can be made in the context of the updated reference intervals. AST 23 0 - 45 U/L 09/29/2023 3:38 PM CANDY SEPARATOR HARD [facility] Comment:Reference intervals for this test were updated on 03/09/2023 to more accurately reflect our healthy population. There may be differences in the flagging of prior results with similar values performed with this method. Interpretation of those prior results can be made in the context of the updated reference intervals. ALT 25 0 - 50 U/L 09/29/2023 3:38 PM CANDY SEPARATOR HARD [facility] Comment:Reference intervals for this test were updated on 03/09/2023 to more accurately reflect our healthy population. There may be differences in the flagging of prior results with similar values performed with this method. Interpretation of those prior results can be made in the context of the updated reference intervals. Protein Total 7.8 6.4 - 8.3 g/dL 09/29/2023 3:38 PM CANDY SEPARATOR HARD [facility] Albumin 5.0 3.5 - 5.2 g/dL 09/29/2023 3:38 PM CANDY SEPARATOR HARD [facility] Bilirubin Total 0.4 <=1.2 mg/dL 09/29/2023 3:38 PM CANDY SEPARATOR HARD [facility] Blood VENOUS LINE / Unknown Venipuncture / Unknown 09/29/2023 3:03 PM CANDY SEPARATOR HARD 09/29/2023 3:09 PM CANDY SEPARATOR HARD Cody Akbar MD LAB - BLOOD ORDERABLES Final Result LABORATORY [facility] [address] [facility] (1st floor, no room number) [place] [address] [phone] * Hepatitis C Screen Reflex to HCV RNA Quant and Genotype (02/06/2023 10:01 AM CDT) Hepatitis C Antibody Nonreactive Nonreactive 02/06/2023 9:22 PM CDT [facility] DO Blood BLOOD SPECIMEN / Unknown Venipuncture / Unknown 02/06/2023 10:01 AM CDT 02/06/2023 10:01 AM CDT Narrative [facility] - 02/06/2023 9:22 PM CDT Assay performance characteristics have not been established for newborns, infants, and children. Pauline Augustine APRN, CNP LAB - BLOOD ORDERABLES F inal Result [facility] [address] [facility] [address] [facility], [address] [place], [place] [address] [phone] * (ABNORMAL) Lipid panel reflex to direct LDL Fasting (02/06/2023 10:01 AM CDT) Cholesterol 212(H) <200 mg/dL 02/06/2023 2:42 PM CDT [facility] Triglycerides 87 <150 mg/dL 02/06/2023 2:42 PM CDT [facility] Direct Measure HDL 81 >=50 mg/dL 02/06/2023 2:42 PM CDT [facility] LDL Cholesterol Calculated 114(H) <=100 mg/dL 02/06/2023 2:42 PM CDT [facility] Non HDL Cholesterol 131(H) <130 mg/dL 02/06/2023 2:42 PM CDT [facility] Blood BLOOD SPECIMEN / Unknown Venipuncture / Unknown 02/06/2023 10:01 AM CDT 02/06/2023 10:01 AM CDT Narrative [facility] - 02/06/2023 2:42 PM CDT Cholesterol Desirable: <200 mg/dL Triglycerides Normal: Less than 150 mg/dL Borderline High: 150-199 mg/dL High: 200-499 mg/dL Very High: Greater than or equal to 500 mg/dL Direct Measure HDL Female: Greater than or equal to 50 mg/dL Male: Greater than or equal to 40 mg/dL LDL Cholesterol Desirable: <100mg/dL Above Desirable: 100-129 mg/dL Borderline High: 130-159 mg/dL High: 160-189 mg/dL Very High: >= 190 mg/dL Non HDL Cholesterol Desirable: 130 mg/dL Above Desirable: 130-159 mg/dL Borderline High: 160-189 mg/dL High: 190-219 mg/dL Very High: Greater than or equal to 220 mg/dL us Pauline Augustine APRN [employer] LAB - BLOOD ORDERABLES F inal Result [facility] [place] [facility] [address] [facility] [address] [facility], [address] [phone], [facility] [phone] * Pap Screen with HPV - recommended age 30 - 65 years (02/06/2023 9:33 AM CDT) Interpretation Negative for Intraepithelial Lesion or Malignancy (NILM) 02/10/2023 3:48 PM CDT [facility] Comment Papanicolaou Test Limitations: Cervical cytology is a screening test with limited sensitivity, and regular screening is critical for cancer prevention. Pap tests are primarily effective for the diagnosis/prevent ion of squamous cell carcinoma, not adenocarcinoma or other cancers. 02/10/2023 3:48 PM CDT [facility] Specimen Adequacy Satisfactory for evaluation, endocervical/verma sformation zone component present 02/10/2023 3:48 PM CDT [facility] Clinical Information none 02/10/2023 3:48 PM CDT [facility] LMP/Menopause Date 01/19/2023 02/10/2023 3:48 PM CDT [facility] Reflex Testing Yes regardless of result 02/10/2023 3:48 PM CDT [facility] Previous Abnormal? No 02/10/2023 3:48 PM CDT [facility] Performing Labs The technical component of this testing was completed at [facility] 02/10/2023 3:48 PM CDT [facility] Brushing CERVIX UTERI STRUCTURE / Unknown 02/06/2023 9:33 AM CDT 02/06/2023 10:41 AM CDT Pauline KAUR - CADY AP Final Re sult [facility] Specialty Lab [address] [facility] [address] Building, [address] [address], [facility] [phone] * HPV High Risk Types DNA Cervical (02/06/2023 9:33 AM CDT) Other HR HPV Negative Negative 02/11/2023 4:27 PM CDT [facility] HPV16 DNA Negative Negative 02/11/2023 4:27 PM CDT [facility] HPV18 DNA Negative Negative 02/11/2023 4:27 PM CDT [facility] FINAL DIAGNOSIS This patient's sample is negative for HPV DNA. This test was developed and its performance characteristics determined by the [facility], Molecular Diagnostics Laboratory. It has not been cleared or approved by the FDA. The laboratory is regulated under CLIA as qualified to perform high-complexity testing. This test is used for clinical purposes. It should not be regarded as investigational or for research. METHODOLOGY: The Nile Maik 4800 system uses automated extraction, simultaneous amplification of HPV (L1 region) and beta-globin, followed by real time detection of fluorescent labeled HPV and beta globin using specific oligonucleotide probes. The test specifically identifies types HPV 16 DNA and HPV 18 DNA while concurrently detecting the rest of the high risk types (31, 33, 35, 39, 45, 51, 52, 56, 58, 59, 66 or 68). COMMENTS: This test is not intended for use as a screening device for woman under age 30 with normal cervical cytology. Results should be correlated with cytologic and histologic findings. Close clinical followup is recommended. 02/11/2023 4:27 PM CDT [facility] Brushing CERVIX UTERI STRUCTURE / Unknown Non-blood Collection / Unknown 02/06/2023 9:33 AM CDT 02/11/2023 9:21 AM CDT us Pauline Augustine APRN, CNP LAB - BLOOD ORDERABLES F inal Result [facility] Diagnostics [address] [facility] [address] Building, [address] [place] [phone], [facility] [phone] * HIV 1 and 2 Antibody (08/09/2012 9:24 AM CANDY SEPARATOR HARD) HIV 1&2 Antibody Negative NEG [facility] Blood specimen (specimen) 08/09/2012 9:24 AM CANDY SEPARATOR HARD 08/09/2012 9:25 AM CANDY SEPARATOR HARD us Case Ibarra MD LAB - BLOOD ORDERABLES Ophelia marques Result [facility] [address] [place] [address], [facility] from Last 3 Months or Most Recently Relevant to Health Maintenance Care Teams Credit Collection Specialist Relationship Specialty Start Date End Date Pauline Augsutine APRN [address] [address] [place] [address] PCP - General Nurse Practitioner - Family 01/25/19 Pauline Augustine APRN [address] [address] [place] [address] Assigned PCP 07/14/21 Kendrick Landry MD [address] [place] [address] Critical Care 06/27/22 Kendrick Landry MD [address] [place] [address] Critical Care 06/27/22
--- OUTSIDE RECORDS SUMMARY | 2024-12-02 20:14 | XMS_ITS | Encounter Summary ---
Author Organization [facility] Address [address] [place] [address]. [place] [address] Care Team Providers Care Honey Blender Name Role Phone Pauline Augustine APRN INDUSTRIAL TRACTOR DRIVER Primary Care Provider + Pauline Augustine APRN INDUSTRIAL TRACTOR DRIVER Unavailable [phone] Kendrick Landry MD Unavailable [phone] Kendrick Landry MD Unavailable [phone] Nydia Murphy CHW Unavailable [phone] Reason for Visit * Reason Onset Date Comments Refill Request 04/15/2024 Encounter Details Date Type Department Care Team (Late st Contact Info) Description 04/15/[address] 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 Stacy Escalera Assembler Convertible Top [facility] * Telephone Encounter - Stacy Landers - 04/20/2024 9:10 AM CDT LVM message requesting a call back for an appt. One more attempt will be made. Stacy Escalera Assembler Convertible Top [facility] * Telephone Encounter - Keya Martinez - 04/19/2024 11:51 AM CDT LVM requesting a return call to clinic to schedule. 2 more attempts will be made. Keya Escalera Assembler Convertible Top * Telephone Encounter - Pauline Augustine APRN CNP - 04/15/2024 10:56 AM CDT Refilled; due for follow-up. Needs in person (physical/asthma/mood/anxiety follow-up). Please assist with scheduling. Last in person appt >1 year ago. Pauline Augustine CNP documented in this encounter Plan of Treatment Not on file documented as of this encounter Visit Diagnoses Diagnosis Adjustment disorder with mixed anxiety and depressed mood documented in this encounter Additional Health Concerns Assessment Noted Time PHQ-9 Depression Total Score: 2 07/29/20 23 12:20 PM CDT documented as of this encounter Care Teams Honey Blender Relationship Specialty Start Date End Date Pauline Augustine APRN CNP [address] [place] [address] PCP - General Nurse Practitioner - Family 01/25/19 Pauline Augustine APRN CNP [address] [place] [address] Assigned PCP 07/14/21 Kendrick Landry MD [address] [place] [address] Critical Care 06/27/22 Kendrick Landry MD [address] [place] [address] Critical Care 06/27/22 Nydia Murphy, [facility] Community Health Worker Primary Care - CC 10/04/2410/06/24 documented as of this encounter
--- OUTSIDE RECORDS SUMMARY | 2024-12-02 20:14 | XMS_ITS | Encounter Summary ---
Author Organization [facility] Address [address] [place] [address]. [place] [address] Care Team Providers Care Underwater Roboticist Name Role Phone Pauline Augustine APRN PHYSICIAN OFFICE SPECIALIST Primary Care Provider + Pauline Augustine APRN PHYSICIAN OFFICE SPECIALIST Unavailable [phone] Kendrick Landry MD Unavailable [phone] Kendrick Landry MD Unavailable [phone] Encounter Details Date Type Department Care Team (Late st Contact Info) Description 11/01/2024 [facility] Medical Advice [facility] [address] [place] [address] Pauline Augustine APRN PHYSICIAN OFFICE SPECIALIST [address] [place] [address] Social History Tobacco Use Types [...] in an abandoned building, in an overnight senior living, or couch-surfing.) Yes 07/29/2023 Are you worried [...] on file Legal Sex Female 4:25 AM TRUCK GUARD Gender Identity Not on file Sexual Orientation Straight 09/24/2021 4: 08 PM TRUCK GUARD 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 One more attempt will be made. Marisel Rollins Form Setter/Driver K [employer]ARD * Telephone Encounter - Daxa Rollins - 11/01/2024 4:10 PM CST LVM to call back for an appointment. Two more attempts will be made. Marisel Rollins Form Setter/Driver [facility] Conner Powell K GUARD documented in this encounter Plan of Treatment Not on file documented as of this encounter Visit Diagnoses Not on filedocumented in this encounter Additional Health Concerns Assessment Noted Time PHQ-9 Depression Total Score: 2 07/29/20 23 12:20 PM CDT documented as of this encounter Care Teams Underwater Roboticist Relationship Specialty Start Date End Date Pauline Augustine APRN PHYSICIAN OFFICE SPECIALIST [address] [place] [address] PCP - General Nurse Practitioner - Family 01/25/19 Pauline Augustine APRN [employer] [address] [place] [address] Assigned PCP 07/14/21 Kendrick Landry MD [address] [place] [address] [id number] Critical Care 06/27/22 Kendrick Landry MD [address] [place] [address] [phone] Critical Care 06/27/22 documented as of this encounter
--- OUTSIDE RECORDS SUMMARY | 2024-12-02 20:14 | XMS_ITS | Encounter Summary ---
Author Organization [facility] Address [address] [place] [address] Care Team Providers Care Rail Car Repairer Name Role Phone Pauline Augustine APRN OFFICE MACHINERY OR EQUIPMENT INSTALLER Unavailable [phone] Pauline Augustine CLIPPER AUTOMATIC OFFICE MACHINERY OR EQUIPMENT INSTALLER Primary Care Provider + Mamadou Jiang PA-C Unavailable +[phone] Pauline Augustine APRN OFFICE MACHINERY OR EQUIPMENT INSTALLER Unavailable + Pauline Augustine APRN OFFICE MACHINERY OR EQUIPMENT INSTALLER Unavailable +[phone] Kendrick Landry MD Unavailable [phone] Kendrick Landry MD Unavailable + [phone] Nydia Murphy CHW Unavailable [phone] Encounter Details Date Type Department Care Team (Late st Contact Info) Description 10/19/2019 MyC Medical Advice [facility] [place], [address] [place] [id number] Amita Perdomo RN Social History Tobacco Use Types Packs/Day Years Used Date Smoking Tobacco: Never Smokeless Tobacco: Never Alcohol Use Standard Drinks/Week Comments No 0 (1 standard drink = 0.6 oz pur e alcohol) PHQ-2 Answer Date Recorded PHQ-2 Score 0 03/18/2019 Comments No Sex and Gender Information Value Date Recorded Sex Assigned at Not on file Legal Sex Female 4:25 AM LEVER OPERATOR Gender Identity Not on file Sexual Orientation Straight 09/24/2021 4: 08 PM LEVER OPERATOR Occupation Industry Job Start Date Job [...] Out COVID-19 09/29/2023 09/29/2023 09/29/2023 3:47 PM LEVER OPERATOR Assessment Noted Time PHQ-9 Depression Total Score: 1 10/20/19 20 7:02 AM LEVER OPERATOR documented as of this encounter Care Teams Rail Car Repairer Relationship Specialty Start Date End Date Pauline Augustine APRN OFFICE MACHINERY OR EQUIPMENT INSTALLER [address] [place] [address] PCP - General Nurse Practitioner - Family 01/25/19 Pauline Augustine APRN OFFICE MACHINERY OR EQUIPMENT INSTALLER [address] [place] [address] Assigned PCP 01/23/19 03/24/20 Mamadou Jiang PA-C [address] [place] [address] Assigned PCP 03/25/20 08/25/20 Pauline Augustine APRN OFFICE MACHINERY OR EQUIPMENT INSTALLER [address] [place] [address] Assigned PCP 08/26/20 07/13/21 Pauline Augustine APRN OFFICE MACHINERY OR EQUIPMENT INSTALLER [address] [place] [address] Assigned PCP 07/14/21 Kendrick Landry MD [address] [place] [address] Critical Care 06/27/22 Kendrick Landry MD [address] [place] [address] Critical Care 06/27/22 Nydia Murphy, W Community Health Worker Primary Care - CC 10/04/2410/06/24 documented as of this encounter
--- OUTSIDE RECORDS SUMMARY | 2024-12-02 20:14 | XMS_ITS | Encounter Summary ---
Author Organization [facility] Address [address] [place] [address] Care Team Providers Care Chief Nurse Name Role Phone Pauline Augustine APRN CHANNEL LAYER Primary Care Provider + Pauline Augustine APRN CHANNEL LAYER Unavailable [phone] Kendrick Landry MD Unavailable [phone] Kendrick Landry MD Unavailable [phone] Nydia Muprhy CHW Unavailable [phone] Encounter Details Date Type Department Care Team (Late st Contact Info) Description 10/04/2024 MyC Medical Advice [address] [address] Daxa Rollins Social History Tobacco Use Types Packs/Day Years [...] in an abandoned building, in an overnight [facility]p, or couch-surfing.) Yes 07/29/2023 Are you worried [...] on file Legal Sex Female 4:25 AM FIELD SUPPORT ENGINEER Gender Identity Not on file Sexual Orientation Straight 09/24/2021 4: 08 PM FIELD SUPPORT ENGINEER Occupation Industry Job Start Date Job [...] documented as of this encounter Care Teams Chief Nurse Relationship Specialty Start Date End Date Pauline Augustine APRN CHANNEL LAYER [address] [place] [address] PCP - General Nurse Practitioner - Family 01/25/19 Pauline Augustine APRN CHANNEL LAYER [address] [place] [address] Assigned PCP 07/14/21 Kendrick Landry MD [address] [place] [address] [id number] Critical Care 06/27/22 Kendrick Landry MD [address] [place] [address] [phone] Critical Care 06/27/22 Nydia Murphy, W Community Health Worker Primary Care - CC 10/04/2410/06/24 documented as of this encounter
--- OUTSIDE RECORDS SUMMARY | 2024-12-02 20:14 | XMS_ITS | Encounter Summary ---
Author Organization [facility] Address [address] [place] [address] Care Team Providers Care Network Diagnostic Support Specialist Name Role Phone Nik Dumont MD Primary Care Provider + [phone] ShawnRajani Rocha COMB WINDER CRIMINAL JUSTICE LAWYER Unavailable Mamadou Jiang PA-C Unavailable + Shawn-Rajani Quintanilla APRN CRIMINAL JUSTICE LAWYER Unavailable Mamadou Jiang PA-C Unavailable + Pauline Augustine COMB WINDER CRIMINAL JUSTICE LAWYER Unavailable + Pauline Augustine COMB WINDER CRIMINAL JUSTICE LAWYER Primary Care Provider + Mamadou Jiang PA-C Unavailable + Pauline Augustine COMB WINDER CRIMINAL JUSTICE LAWYER Unavailable +[phone] Pauline Augustine APRN CRIMINAL JUSTICE LAWYER Unavailable + Kendrick Landry MD Unavailable [phone] Kendrick Landry MD Unavailable [phone] Nydia Murphy [facility] Unavailable [phone] Reason for Visit * Reason Onset Date Comments Medication Question 08/30/2013 Encounter Details Date Type Department Care Team (Late st Contact Info) Description 08/30/2013 MyC Medical Advice [facility] [address] [place] [address] Case Ibarra MD RETIRED Medication Question Social History Tobacco Use Types Packs/Day Years Used Date Smoking Tobacco: Never Smokeless Tobacco: Never Alcohol Use Standard Drinks/Week Comments No 0 (1 standard drink = 0.6 oz pur e alcohol) Comments No Sex and Gender Information Value Date Recorded Sex Assigned at Not on file Legal Sex Female 4:25 AM CHIMNEY BUILDER BRICK Gender Identity Not on file Sexual Orientation Straight 09/24/2021 4: 08 PM CHIMNEY BUILDER BRICK 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 Not on file Not on file Not on file Not on file documented as of this encounter Plan of Treatment Not on file documented as of this encounter Visit Diagnoses Diagnosis Contraception- Primary Unspecified contraceptive management documented in this encounter Additional Health Concerns Infection Onset Date Last Indicated Resolved Time Rule Out COVID-06/19/2023 06/19/2023 06/19/2023 10:19 PM CDT Rule Out COVID-09/29/2023 09/29/2023 09/29/2023 3:47 PM CHIMNEY BUILDER BRICK documented as of this encounter Care Teams Network Diagnostic Support Specialist Relationship Specialty Start Date End Date Nik Dumont MD [address] [address] PCP - General 07/18/02 01/24/19 Rajani Rodriguez APRN CRIMINAL JUSTICE LAWYER [address] [place] [address] [place] [address] PCP - Assigned PCP 04/25/18 10/30/18 Mamadou Jiang PA-C [address] [facility] [place] [address] PCP - Assigned PCP 10/31/18 11/30/18 Pauline Augustine APRN CRIMINAL JUSTICE LAWYER [address] [place] [address] PCP - General Nurse Practitioner - Family 01/25/19 Rajani Rodriguez APRN CRIMINAL JUSTICE LAWYER [address] [facility] [place] [address] Assigned PCP 04/25/18 10/30/18 Mamadou Jiang PA-C [address] [place] [address] Assigned PCP 10/31/18 01/22/19 Pauline Augustine APRN CRIMINAL JUSTICE LAWYER [address] [place] [address] Assigned PCP 01/23/19 03/24/20 Mamadou Jiang PA-C [address] [place] [address] Assigned PCP 03/25/20 08/25/20 Pauline Augustine APRN CRIMINAL JUSTICE LAWYER [address] [place] [address] Assigned PCP 08/26/20 07/13/21 Pauline Augustine APRN CRIMINAL JUSTICE LAWYER [address] [place] [address] Assigned PCP 07/14/21 Kendrick Landry MD [address] [place] [address] Critical Care 06/27/22 Kendrick Landry MD [address] [place] [address] Critical Care 06/27/22 Nydia Murphy, [facility] Community Health Worker Primary Care - CC 10/04/2410/06/24 documented as of this encounter
--- OUTSIDE RECORDS SUMMARY | 2024-12-02 20:14 | XMS_ITS | Encounter Summary ---
Author Organization [facility] Address [address] [place] [address] Care Team Providers Care Band Tier Name Role Phone Pauline Augustine APRN CONFERENCE SERVICES MANAGER Primary Care Provider + Pauline Augustine APRN CONFERENCE SERVICES MANAGER Unavailable [phone] Kendrick Landry MD Unavailable [phone] Kendrick Landry MD Unavailable [phone] Encounter Details Date Type Department Care Team (Late st Contact Info) Description 10/25/2024 [facility] Medical Advice [address] [address] Daxa Rollins Social History Tobacco [...] in an abandoned building, in an overnight skilled nursing, or couch-surfing.) Yes 07/29/2023 Are you worried [...] on file Legal Sex Female 4:25 AM ACTUARIAL SCIENCE PROFESSOR Gender Identity Not on file Sexual Orientation Straight 09/24/2021 4: 08 PM ACTUARIAL SCIENCE PROFESSOR Occupation Industry Job Start Date Job [...] documented as of this encounter Care Teams Band Tier Relationship Specialty Start Date End Date Pauline Augustine APRN CONFERENCE SERVICES MANAGER [address] [place] [address] PCP - General Nurse Practitioner - Family 01/25/19 Pauline Augustine APRN CONFERENCE SERVICES MANAGER [address] [place] [address] Assigned PCP 07/14/21 Kendrick Landry MD [address] [place] [address] Critical Care 06/27/22 Kendrick Landry MD [address] [place] [address] Critical Care 06/27/22 documented as of this encounter
--- OUTSIDE RECORDS SUMMARY | 2024-12-02 20:14 | XMS_ITS | Encounter Summary ---
Author Organization [facility] Address [address] [place] [address] Care Team Providers Care Diamond Driller Helper Name Role Phone Pauline Augustine APRN INSTRUCTIONAL ASSISTANT Primary Care Provider + Pauline Augustine APRN INSTRUCTIONAL ASSISTANT Unavailable [phone] Kendrick Landry MD Unavailable [phone] Kendrick Landry MD Unavailable [phone] Encounter Details Date Type Department Care Team (Late st Contact Info) Description 10/20/2024 [facility] Medical Advice [address] [address] Stacy Landers Social History Tobacco [...] Answer Date Recorded Do you have housing? (Deliciain g is defined as stable permanent housing and does not include staying ouside in a car, in a tent, in an abandoned building, in an overnight mcc, or couch-surfing.) Yes 07/29/2023 Are you worried [...] on file Legal Sex Female 4:25 AM ORTHOTIC AIDE Gender Identity Not on file Sexual Orientation Straight 09/24/2021 4: 08 PM ORTHOTIC AIDE Occupation Industry Job Start Date Job End [...] documented as of this encounter Care Teams Diamond Driller Helper Relationship Specialty Start Date End Date Pauline Augustine APRN INSTRUCTIONAL ASSISTANT [address] [place] [address] PCP - General Nurse Practitioner - Family 01/25/19 Pauline Augustine APRN INSTRUCTIONAL ASSISTANT [address] [place] [address] Assigned PCP 07/14/21 Kendrick Landry MD [address] [place] [address] Critical Care 06/27/22 Kendrick Landry MD [address] [place] [address] 730855 Critical Care 06/27/22 documented as of this encounter
== END 2024-12-02 20:18 | disposition home or self-care (01) ==
LOC: ED 20:09
PROVIDERS: Emergency Provider Emergency Medicine
DX: Z53.21 Procedure and treatment not carried out due to patient leaving prior to being seen by health care provider (principal)
CPT/HCPCS: 99281